=== PATIENT | female | born 1965 | race Caucasian/White ===

== ENCOUNTER 2021-01-20 11:51 | Outpatient (REF) | payer OTHER, SELFPAY ==
--- NOTE | ~2021-01-20 | MR_ITS ---
MR LUMBAR SPINE WITHOUT CONTRAST CLINICAL INFORMATION: Lumbosacral radiculitis. COMPARISON: None available. TECHNIQUE: MRI of the lumbar spine was obtained using routine sequences without contrast. FINDINGS: There is transitional anatomy. 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 There are 5 nonrib-bearing lumbar-type vertebral bodies in the last completely developed intervertebral disc is considered L5-S1. Please correlate with plain films prior to any percutaneous or surgical intervention. There is grade 1 retrolisthesis of L4 L3 on L4 and L4 on L5. Chronic endplate Schmorl's nodes at the L1, L2, and L3 levels. There is no bone marrow edema. There are no acute fractures. Conus terminates at the L1-L2 level. There are no significant extraspinal soft tissue findings. T12-L1: A shallow right paracentral disc protrusion mildly indents the right ventral thecal sac. L1-L2: Small annular disc bulge exhibiting a small dorsal annular fissure. No central canal stenosis and no foraminal stenosis. L2-L3: Small annular disc bulge and mild to moderate bilateral facet arthropathy. No central canal stenosis and no foraminal stenosis. L3-L4: Diffuse annular disc bulge with a superimposed left paracentral disc protrusion that compresses the traversing left L4 nerve root within the left subarticular zone. Mild central canal stenosis. A far left lateral disc protrusion compresses the extraforaminal left L3 nerve root as well. L4-L5: Grade 1 retrolisthesis. There is a diffuse annular disc bulge and there is a inferiorly migrating right paracentral disc extrusion that compresses the traversing right L5 nerve root within the right L5 lateral recess. Background annular disc bulge and severe bilateral facet arthropathy contribute to severe left subarticular zone stenosis with compression of the traversing left L5 nerve root as well. Mild to moderate right and mild left foraminal encroachment. L5-S1: Annular disc bulge and moderate bilateral facet arthropathy. No central canal stenosis. Mild foraminal encroachment bilaterally. Far left lateral disc osteophyte protrusion approaches without definitely resulting in mass effect on the extraforaminal left L5 nerve root. MR/MR lumbar spine wo con IMPRESSION: - There is transitional anatomy. 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 There are 5 nonrib-bearing lumbar-type vertebral bodies in the last completely developed intervertebral disc is considered L5-S1. Please correlate with plain films prior to any percutaneous or surgical intervention. - At L4-L5, an inferiorly migrating right paracentral disc extrusion compresses the traversing right L5 nerve root within the right L5 lateral recess and multifactorial degenerative changes result in severe left subarticular zone stenosis with compression of the traversing left L5 nerve root as well. - At L3-L4, a left paracentral disc protrusion compresses the traversing left L4 nerve root within the left subarticular zone and a far left lateral disc protrusion compresses the extraforaminal left L3 nerve root on image 19 of series 5. - Additional degenerative findings as discussed above.
== END 2021-01-20 11:52 | disposition home or self-care (01) ==
LOC: HO.MRI 11:51
PROVIDERS: Visit Provider Internal Medicine
DX: M54.17 Radiculopathy, lumbosacral region (principal)
CPT/HCPCS: 72148

== ENCOUNTER 2021-11-04 12:27 | Outpatient (REF) | payer OTHER, SELFPAY ==
--- NOTE | ~2021-11-04 | XR_ITS ---
EXAMINATION: XR CHEST CLINICAL INFORMATION: Acute cough COMPARISON: None TECHNIQUE: 2 views of the chest were obtained. FINDINGS: The lungs are clear. There is no airspace consolidation or effusion. The heart is normal in size. The vascularity is normal. The hilar and mediastinal contours and bony structures are unremarkable. XR/XR chest 2V IMPRESSION: Unremarkable examination.
[2021-11-04 17:58] LABS: MANUAL DIFF FLAG NO
[2021-11-04 18:08] LABS: Basophils Absolute Auto 0.1 X10*3/uL (0.0-0.2); Basophils Percent Auto 0.6 % (0-2); Eosinophils Absolute Auto 0.3 X10*3/uL (0.0-0.4); Eosinophils Percent Auto 3.8 % (0-4); Hematocrit 41.5 % (37.0-47.0); Hemoglobin 13.4 g/dl (12.0-16.0); Imm Gran Abs Auto 0.02 X10*3/uL (0.00-0.03); Imm Gran Pct Auto 0.3 % (0.0-0.4); Lymphocytes Absolute Auto 2.4 X10*3/uL (1.2-4.9); Mean Corpuscular HGB Conc 32.3 g/dl (31.0-35.0); Mean Corpuscular Hemoglobin 27.8 pg (27.0-33.0); Mean Corpuscular Volume 86.1 fL (80.0-98.0); Mean Platelet Volume 10.9 fL (9.4-12.3); Monocytes Absolute Auto 0.8 X10*3/uL (0.1-1.2); Monocytes Percent Auto 9.9 % (2-11); Neutrophils Absolute Auto 4.3 x10*3/uL (2.0-8.3); Neutrophils Percent Auto 54.4 % (45-73); Platelet Count 291 X10*3/uL (160-400); Red Blood Count 4.82 X10*6/uL (4.20-5.50); Red Cell Distribution Width 13.5 % (11.0-16.0); White Blood Count 7.8 X10*3/uL (4.8-10.8)
== END 2021-11-04 12:28 | disposition home or self-care (01) ==
LOC: HO.MANLDS 12:27
PROVIDERS: PCP Internal Medicine; Visit Provider Physician Assistant
DX: R05.1 Acute cough (principal); R00.2 Palpitations; E78.2 Mixed hyperlipidemia
CPT/HCPCS: 36415; 71046; 85025

== ENCOUNTER 2021-11-30 11:06 | Outpatient (REF) | payer OTHER, SELFPAY ==
[2021-11-30 13:33] LABS: MANUAL DIFF FLAG NO
[2021-11-30 13:36] LABS: Basophils Percent Auto 0.4 % (0-2); Eosinophils Absolute Auto 0.2 X10*3/uL (0.0-0.4); Eosinophils Percent Auto 3.2 % (0-4); Hematocrit 40.7 % (37.0-47.0); Hemoglobin 13.4 g/dl (12.0-16.0); Imm Gran Abs Auto 0.01 X10*3/uL (0.00-0.03); Imm Gran Pct Auto 0.2 % (0.0-0.4); Lymphocytes Absolute Auto 1.5 X10*3/uL (1.2-4.9); Lymphocytes Percent Auto 28.5 % (20-40); Mean Corpuscular HGB Conc 32.9 g/dl (31.0-35.0); Mean Corpuscular Hemoglobin 27.9 pg (27.0-33.0); Mean Corpuscular Volume 84.8 fL (80.0-98.0); Mean Platelet Volume 10.6 fL (9.4-12.3); Monocytes Absolute Auto 0.7 X10*3/uL (0.1-1.2); Monocytes Percent Auto 13.1 % (2-11); Neutrophils Absolute Auto 2.9 x10*3/uL (2.0-8.3); Neutrophils Percent Auto 54.6 % (45-73); Platelet Count 259 X10*3/uL (160-400); Red Cell Distribution Width 13.3 % (11.0-16.0); White Blood Count 5.3 X10*3/uL (4.8-10.8)
[2021-11-30 13:47] LABS: Alanine Aminotransferase 37 U/L (0-31); Albumin Level 4.4 g/dL (3.5-5.0); Alkaline Phosphatase 64 U/L (39-117); Anion Gap 14 (12-20); Aspartate Amino Transferase 20 U/L (5-31); Bilirubin Total 0.5 mg/dL (0.0-1.0); Blood Urea Nitrogen 21 mg/dL (9-16); Calcium 9.6 mg/dL (8.4-10.2); Carbon Dioxide 25 mmol/L (22-29); Chloride 107 mmol/L (96-108); Cholesterol 199 mg/dL; Estimated Glomerular Filt Rate > 60; Glucose Fasting 108 mg/dL (60-99); HDL Cholesterol 56 mg/dL; Iron 37 mcg/dL (30-160); LDL Cholesterol Calculated 129 mg/dl; Percent Iron Saturation 11 % (15-50); Potassium 3.7 mmol/L (3.3-5.1); Sodium 142 mmol/L (135-145); Total Iron Binding Capacity 350 mcg/dL (228-428); Total Protein 7.1 g/dL (6.5-8.0); Triglycerides 73 mg/dL; Unsaturated Iron Binding 313 ug/dL
[2021-11-30 14:07] LABS: Ferritin 83 ng/mL (10-250); Free T4 (Free Thyroxine) 0.87 ng/dL (0.71-1.85); Thyroid Stimulating Hormone 1.77 uIU/mL (0.32-4.0)
== END 2021-11-30 11:07 | disposition home or self-care (01) ==
LOC: HO.MANLDS 11:06
PROVIDERS: PCP Physician Assistant; Visit Provider Physician Assistant
DX: R00.2 Palpitations (principal); E78.2 Mixed hyperlipidemia
CPT/HCPCS: 36415; 80053; 80061; 82728; 83540; 84439; 84443; 85025

== ENCOUNTER → 2022-12-13 14:08 | Outpatient (REF) | payer OTHER, SELFPAY ==
--- NOTE | 2022-12-13 14:47 | HM_ITS ---
* Procedure length 30 days. Wear time 22.8 days. * Average ventricular rate 87/Min. Range 50 to 156/Min. * About 30% the time, rate > 100/Min. * Rare supraventricular and ventricular ectopy. * No clear patient symptoms documented. MTDD
== END ==
LOC: HO.CARD 14:08
PROVIDERS: PCP Internal Medicine; Visit Provider Physician Assistant
DX: R07.89 Other chest pain (principal)
CPT/HCPCS: 93270

== ENCOUNTER 2022-12-29 14:24 | Outpatient (REF) | payer OTHER, SELFPAY ==
--- NOTE | ~2022-12-29 | MR_ITS ---
EXAMINATION: MR KNEE WITHOUT CONTRAST, LEFT CLINICAL INFORMATION: Left knee pain and swelling following an injury. COMPARISON: None available. TECHNIQUE: MRI of the knee without contrast was performed using routine sequences on a high-field scanner. FINDINGS: MENISCI: Medial Meniscus: Attenuation of the medial extruded meniscal body with mild inner margin fraying/tearing. Minimal inner margin fraying of the posterior horn and root. Lateral Meniscus: Partially discoid lateral meniscus without associated tearing. LIGAMENTS: Cruciate: Intact Collateral: Intact EXTENSOR MECHANISM: Superior patellar enthesophytes. Intact quadriceps and patellar tendons. Normal patellofemoral alignment. ARTICULAR CARTILAGE/BONE: Patellofemoral Compartment: Full-thickness articular cartilage fissuring at the patellar median ridge. Medial patellar facet articular cartilage signal heterogeneity with areas of fissuring and underlying subchondral cystic change. Small marginal osteophytes. Medial Compartment: Full-thickness articular cartilage loss at the medial most aspect of the medial tibial plateau with underlying subchondral cystic change and marrow edema. Additional full-thickness articular cartilage loss at the posterior weightbearing medial femoral condyle measuring up to 3 cm in AP dimension with underlying subchondral cystic change and marrow edema. Marginal osteophytes. Lateral Compartment: Mild articular cartilage signal heterogeneity with small marginal osteophytes. JOINT FLUID AND BURSAE: Juxro-gd-[id number] joint effusion and small Jiang's cyst. Osteochondral loose body within the superomedial joint recess measuring up to 1.4 cm in greatest dimension. MR/MR knee LT wo con IMPRESSION: 1. Attenuation of the medial meniscal body with mild inner margin fraying/tearing. Minimal inner margin fraying of the posterior horn and root. 2. Partially discoid lateral meniscus without tearing. 3. Afibrzer-sc-iomnfq medial as well as mild patellofemoral and lateral compartment osteoarthritis. Jrhyb-dm-hkgbwcbn joint effusion and small Jiang's cyst. Osteochondral loose body within the superomedial joint recess measuring up to 1.4 cm.
== END 2022-12-29 14:25 | disposition home or self-care (01) ==
LOC: HO.MRI 14:24
PROVIDERS: PCP Internal Medicine; Visit Provider Physician Assistant
DX: S83.207A Unspecified tear of unspecified meniscus, current injury, left knee, initial encounter (principal)
CPT/HCPCS: 73721

== ENCOUNTER 2023-01-21 14:25 | Emergency (ER) | payer OTHER, SELFPAY ==
--- NOTE | ~2023-01-21 | XR_ITS ---
EXAMINATION: XR CHEST CLINICAL INFORMATION: Chest pain. COMPARISON: 11/04/2021 chest radiographs. TECHNIQUE: 2 views of the chest were obtained. FINDINGS: No significant abnormality is noted involving the heart, lungs, mediastinum, bony thorax or soft tissues. XR/XR chest 2V IMPRESSION: No acute cardiopulmonary process.
--- NOTE | 2023-01-21 14:27 | ED_ITS ---
HPI - General Adult General Chief complaint: Chest Pain Stated complaint: Chest Pain Time Seen by Provider: 01/21/23 14:30 Source: patient, RN notes reviewed and old records reviewed Mode of arrival: ambulatory History of Present Illness HPI narrative: 57-year-old female with past medical history hypertension, presenting to the ED complaining of intermittent chest pain x 2 months, worsening this morning with associated SOB, nausea, lightheadedness, and radiation to jaw & LUE. Patient admits to taking 2 nitroglycerin with some relief. Admits to recently being worked up at [facility] and [facility] for similar symptoms, had ECHO, Holter, and is scheduled for outpatient CT. Denies fever, cough, abdominal pain, vomiting/diarrhea, calf pain, history of clots Onset (ago): day(s) Related Data Allergies Allergy/AdvReac Type Severity Reaction Status Date / Time No Known Allergies Allergy Verified 01/21/23 14:40 Review of Systems Review of Systems: Constitutional: No Fever, No Chills, No Night Sweats, No Fatigue, No Malaise ENT/Mouth: No Ear Pain, No Nasal Congestion, No sore throat Eyes: No Eye Pain, No Swelling, No Redness, No Vision Changes Cardiovascular: +intermittent Chest Pain, + SOB, No Dyspnea on Exertion, No Edema, No Palpitations Respiratory: No Cough, No Sputum, No Dyspnea Gastrointestinal: + Nausea, No Vomiting, No Diarrhea, No Constipation, No Ab dominal pain Genitourinary: No Dysuria, No Urinary Frequency, No Hematuria Musculoskeletal: No joint pain, No Myalgias, No Joint Swelling Skin: No Skin Lesions, No rash Neuro: No Weakness, No Loss of Consciousness, +lightheaded, No Headache Yes all other systems are reviewed and are negative Constitutional: Constitutional: Reports as per [facility] Past Medical History Attestation statement: The following information was validated with the patient. Source: old records reviewed Social History Social History Alcohol intake: current Alcohol intake frequency: a few times a week Smoked in Last 30 Days: No Use of substances other than those prescribed or required for medical reasons: Yes Substance Use Type: Marijuana Advance Directives: No Advance Directives Information Provided: Yes Patient : No Physical Exam ED Vital Signs: Vital Signs - 24 hr 01/21/23 14:36 01/21/23 16:00 Temperature 98.8 F 98.5 F Pulse Rate 88 82 Respiratory Rate 15 16 Blood Pressure 185/98 H 162/90 H Pulse Oximetry 97 97 Oxygen Delivery Method Room Air Room Air BMI result Body Mass Index 34.3 Const General: cooperative, healthy appearing, no acute distress, alert and awake Orientation/consciousness: patient oriented x3 Limitations: no limitations HENMT Head: Yes normal to inspection and Yes atraumatic Ears: hearing grossly normal bilaterally General nose exam: Normal external nose present Face and sinus: Yes normal facial exam Eyes General: appearance normal, both eyes and all related structures EOM: EOMs intact bilaterally Neck Neck: Yes normal visual inspection and Yes no meningeal signs Resp Effort & Inspection: normal respiratory effort and no respiratory distress Auscultation: clear to auscultation bilaterally, no rales, no rhonchi and no wheezes Cardio Rate: regular rate Heart sounds: S1 normal heart sound present and S2 normal heart sound present GI Inspection: Yes normal to inspection Palpation (GI): Soft to palpation, nontender, no guarding and not rigid Skin Rashes: no rashes Wounds: no wounds Neuro General: patient oriented x3, tone normal, moves all extremities, no meningeal signs and no focal motor deficits Extrem General: Yes normal to inspection, Yes no pedal edema and Yes no calf tenderness Course Course Course Narrative: RME performed by Kassandra Wong PA-C. Patient is a 57 year old assigned female at presenting to the emergency department with chest pain. Labs, imaging, and CXR ordered. Patient placed back in the waiting room pending room availability and results. -1600--no leukocytosis. BUN chronically elevated. Labs otherwise reassuring. Initial troponin negative > will obtain 3 hour repeat XR chest 2V IMPRESSION: No acute cardiopulmonary process. -1630--ED care transfer to [facility] pending repeat troponin and dispo per results Medical Decision Making Medical Decision Making MDM Narrative: 57-year-old female with past medical history hypertension, presenting to the ED complaining of intermittent chest pain x 2 months, worsening this morning with associated SOB, nausea, lightheadedness, and radiation to jaw & LUE. On exam vital signs stable, NAD, nontoxic appearing, lungs CTA, no pedal edema/calf tenderness. Symptoms atypical for ACS or PE. Low suspicion for dissection or pneumonia. Plan: EKG, Labs, CXR, Reassess HEART Score =3 (Low risk) Please refer to course for remaining clinical decision making, interpretation of labs/imaging results, and discussions with consultants and/or family members. Differential Diagnosis Differential Diagnoses: The differential diagnosis associated with the prese ntation includes As above Admission/Observation Consideration of admission/observation: Escalation of care including admission/ observation considered Lab Data MDM Lab Attestation statement: I reviewed the patient's lab results. 01/21/23 14:55 01/21/23 14:55 Labs: Lab Results 01/21/23 01/21/23 01/21/23 Range/Units 14:55 14:55 14:55 WBC 8.1 (4.8-10.8) X10*3/uL RBC 4.52 (4.20-5.50) X10*6/uL Hgb 12.8 (12.0-16.0) g/dl Hct 38.8 (37.0-47.0) % MCV 85.8 (80.0-98.0) fL MCH 28.3 (27.0-33.0) pg MCHC 33.0 (31.0-35.0) g/dl RDW 13.2 (11.0-16.0) % Plt Count 275 (160-400) X10*3/uL MPV 9.6 (9.4-12.3) fL Immature Gran % (Auto) 1.0 H (0.0-0.4) % Neut % (Auto) 70.3 (45-73) % Lymph % (Auto) 19.4 L (20-40) % Kent % (Auto) 8.0 (2-11) % Eos % (Auto) 0.7 (0-4) % Baso % (Auto) 0.6 (0-2) % Lymph # (Auto) 1.6 (1.2-4.9) X10*3/uL Kent # (Auto) 0.7 (0.1-1.2) X10*3/uL Eos # (Auto) 0.1 (0.0-0.4) X10*3/uL Baso # (Auto) 0.1 (0.0-0.2) X10*3/uL Abs Immat Gran (auto) 0.08 H (0.00-0.03) X10*3/uL Absolute Neuts (auto) 5.7 (2.0-8.3) x10*3/uL Absolute Nucleated RBC 0.000 (0.0-0.012) X10*3/uL Nucleated RBC % (auto) 0.0 (0.0-0.2) /100WBC PT (10.0-13.1) SEC INR (0.9-1.1) APTT (26.0-36.4) SEC Sodium 142 (135-145) mmol/L Potassium 4.1 (3.3-5.1) mmol/L Chloride 107 (96-108) mmol/L Carbon Dioxide 26 (22-29) mmol/L Anion Gap 13 (12-20) BUN 23 H (9-16) mg/dL Creatinine 0.81 (0.5-1.4) mg/dL Estim Creat Clear Calc 86.5 Estimated GFR > 60 Random Glucose 108 (60-115) mg/dL Calcium 9.8 (8.4-10.2) mg/dL Magnesium 2.0 (1.6-2.6) mg/dL Total Bilirubin 0.4 (0.0-1.0) mg/dL AST 17 (5-31) U/L ALT 25 (0-31) U/L Alkaline Phosphatase 70 (39-117) U/L Troponin I High Sens < 2.7 (<3.5-17.0) ng/L B-Natriuretic Peptide (<100) pg/mL Total Protein 7.6 (6.5-8.0) g/dL Albumin 4.9 (3.5-5.0) g/dL Urine Color Urine Appearance Urine pH (5.0-9.0) Ur Specific Carefree (1.005-1.025) Urine Protein (Neg-Trace) mg/dL Urine Glucose (UA) (Negative) mg/dL Urine Ketones (Negative) mg/dL Urine Blood (Negative) Urine Nitrite (Negative) Ur Leukocyte Esterase (Negative) COVID-19 ([facility]) (Negative) COVID-19 Clin Com 01/21/23 01/21/23 01/21/23 Range/Units 14:55 14:55 14:55 WBC (4.8-10.8) X10*3/uL RBC (4.20-5.50) X10*6/uL Hgb (12.0-16.0) g/dl Hct (37.0-47.0) % MCV (80.0-98.0) fL MCH (27.0-33.0) pg MCHC (31.0-35.0) g/dl RDW (11.0-16.0) % Plt Count (160-400) X10*3/uL MPV (9.4-12.3) fL Immature Gran % (Auto) (0.0-0.4) % Neut % (Auto) (45-73) % Lymph % (Auto) (20-40) % Kent % (Auto) (2-11) % Eos % (Auto) (0-4) % Baso % (Auto) (0-2) % Lymph # (Auto) (1.2-4.9) X10*3/uL Kent # (Auto) (0.1-1.2) X10*3/uL Eos # (Auto) (0.0-0.4) X10*3/uL Baso # (Auto) (0.0-0.2) X10*3/uL Abs Immat Gran (auto) (0.00-0.03) X10*3/uL Absolute Neuts (auto) (2.0-8.3) x10*3/uL Absolute Nucleated RBC (0.0-0.012) X10*3/uL Nucleated RBC % (auto) (0.0-0.2) /100WBC PT 10.8 (10.0-13.1) SEC INR 0.9 (0.9-1.1) APTT 34.5 (26.0-36.4) SEC Sodium (135-145) mmol/L Potassium (3.3-5.1) mmol/L Chloride (96-108) mmol/L Carbon Dioxide (22-29) mmol/L Anion Gap (12-20) BUN (9-16) mg/dL Creatinine (0.5-1.4) mg/dL Estim Creat Clear Calc Estimated GFR Random Glucose (60-115) mg/dL Calcium (8.4-10.2) mg/dL Magnesium (1.6-2.6) mg/dL Total Bilirubin (0.0-1.0) mg/dL AST (5-31) U/L ALT (0-31) U/L Alkaline Phosphatase (39-117) U/L Troponin I High Sens (<3.5-17.0) ng/L B-Natriuretic Peptide 23 (<100) pg/mL Total Protein (6.5-8.0) g/dL Albumin (3.5-5.0) g/dL Urine Color Urine Appearance Urine pH (5.0-9.0) Ur Specific Carefree (1.005-1.025) Urine Protein (Neg-Trace) mg/dL Urine Glucose (UA) (Negative) mg/dL Urine Ketones (Negative) mg/dL Urine Blood (Negative) Urine Nitrite (Negative) Ur Leukocyte Esterase (Negative) COVID-19 ([facility]WIN) Negative (Negative) COVID-19 Clin Com See Note 01/21/23 Range/Units 15:19 WBC (4.8-10.8) X10*3/uL RBC (4.20-5.50) X10*6/uL Hgb (12.0-16.0) g/dl Hct (37.0-47.0) % MCV (80.0-98.0) fL MCH (27.0-33.0) pg MCHC (31.0-35.0) g/dl RDW (11.0-16.0) % Plt Count (160-400) X10*3/uL MPV (9.4-12.3) fL Immature Gran % (Auto) (0.0-0.4) % Neut % (Auto) (45-73) % Lymph % (Auto) (20-40) % Kent % (Auto) (2-11) % Eos % (Auto) (0-4) % Baso % (Auto) (0-2) % Lymph # (Auto) (1.2-4.9) X10*3/uL Kent # (Auto) (0.1-1.2) X10*3/uL Eos # (Auto) (0.0-0.4) X10*3/uL Baso # (Auto) (0.0-0.2) X10*3/uL Abs Immat Gran (auto) (0.00-0.03) X10*3/uL Absolute Neuts (auto) (2.0-8.3) x10*3/uL Absolute Nucleated RBC (0.0-0.012) X10*3/uL Nucleated RBC % (auto) (0.0-0.2) /100WBC PT (10.0-13.1) SEC INR (0.9-1.1) APTT (26.0-36.4) SEC Sodium (135-145) mmol/L Potassium (3.3-5.1) mmol/L Chloride (96-108) mmol/L Carbon Dioxide (22-29) mmol/L Anion Gap (12-20) BUN (9-16) mg/dL Creatinine (0.5-1.4) mg/dL Estim Creat Clear Calc Estimated GFR Random Glucose (60-115) mg/dL Calcium (8.4-10.2) mg/dL Magnesium (1.6-2.6) mg/dL Total Bilirubin (0.0-1.0) mg/dL AST (5-31) U/L ALT (0-31) U/L Alkaline Phosphatase (39-117) U/L Troponin I High Sens (<3.5-17.0) ng/L B-Natriuretic Peptide (<100) pg/mL Total Protein (6.5-8.0) g/dL Albumin (3.5-5.0) g/dL Urine Color Yellow Urine Appearance Clear Urine pH 6.5 (5.0-9.0) Ur Specific Carefree 1.015 (1.005-1.025) Urine Protein Negative (Neg-Trace) mg/dL Urine Glucose (UA) Negative (Negative) mg/dL Urine Ketones Negative (Negative) mg/dL Urine Blood Negative (Negative) Urine Nitrite Negative (Negative) Ur Leukocyte Esterase Negative (Negative) COVID-19 ([facility]WIN) (Negative) COVID-19 Clin Com Radiology Impression Discussion of test interpretation with radiology: I have reviewed the radiologist's reading. External Record Review External record reviewed: Inpatient record, Office record, Outpatient record, Prior outpatient labs, Prior outpatient radiology, Primary care record and Outside ED record Tests considered The following testing was considered but not selected: As above Discharge Plan Discharge Clinical Impression: Atypical chest pain Patient Disposition: Home, Self-Care Instructions: Noncardiac Chest Pain (ED) Referrals: [facility] – [place] Cardiovascular Services [Provider Group] Bigda,Wallace, MD [Primary Care Provider] -
--- NOTE | 2023-01-21 14:30 | ECG_ITS ---
Test Reason : CP Blood Pressure : / mmHG Vent. Rate : 089 BPM Atrial Rate : 089 BPM P-R Int : 128 ms QRS Dur : 090 ms QT Int : 346 ms P-R-T Axes : 059 042 051 degrees QTc Int : 420 ms Normal sinus rhythm Normal ECG No previous ECGs available Referred By: Kassandra Wong Electronically Signed By:Shai Gracia
[2023-01-21 14:36] VITALS: BP 185/98; PULSE 88; RESP 15; TEMP 37.1; O2SAT 97; BMI 34.3
[2023-01-21 15:00] LABS: MANUAL DIFF FLAG NO
[2023-01-21 15:06] LABS: INTERNATIONAL NORM RATIO 0.9 (0.9-1.1); Prothrombin Time 10.8 SEC (10.0-13.1)
[2023-01-21 15:08] LABS: Basophils Absolute Auto 0.1 X10*3/uL (0.0-0.2); Basophils Percent Auto 0.6 % (0-2); Eosinophils Absolute Auto 0.1 X10*3/uL (0.0-0.4); Eosinophils Percent Auto 0.7 % (0-4); Hematocrit 38.8 % (37.0-47.0); Hemoglobin 12.8 g/dl (12.0-16.0); Imm Gran Abs Auto 0.08 X10*3/uL (0.00-0.03); Lymphocytes Absolute Auto 1.6 X10*3/uL (1.2-4.9); Lymphocytes Percent Auto 19.4 % (20-40); Mean Corpuscular Hemoglobin 28.3 pg (27.0-33.0); Mean Corpuscular Volume 85.8 fL (80.0-98.0); Mean Platelet Volume 9.6 fL (9.4-12.3); Monocytes Absolute Auto 0.7 X10*3/uL (0.1-1.2); Neutrophils Absolute Auto 5.7 x10*3/uL (2.0-8.3); Neutrophils Percent Auto 70.3 % (45-73); Platelet Count 275 X10*3/uL (160-400); Red Blood Count 4.52 X10*6/uL (4.20-5.50); Red Cell Distribution Width 13.2 % (11.0-16.0); White Blood Count 8.1 X10*3/uL (4.8-10.8)
[2023-01-21 15:09] LABS: Partial Thromboplastin Time 34.5 SEC (26.0-36.4)
[2023-01-21 15:19] LABS: Alanine Aminotransferase 25 U/L (0-31); Albumin Level 4.9 g/dL (3.5-5.0); Alkaline Phosphatase 70 U/L (39-117); Anion Gap 13 (12-20); Aspartate Amino Transferase 17 U/L (5-31); Bilirubin Total 0.4 mg/dL (0.0-1.0); Blood Urea Nitrogen 23 mg/dL (9-16); Calcium 9.8 mg/dL (8.4-10.2); Carbon Dioxide 26 mmol/L (22-29); Chloride 107 mmol/L (96-108); Creatinine Clr Calc Pharmacy 86.5; Estimated Glomerular Filt Rate > 60; Glucose Random 108 mg/dL (60-115); Potassium 4.1 mmol/L (3.3-5.1); Sodium 142 mmol/L (135-145); Total Protein 7.6 g/dL (6.5-8.0)
[2023-01-21 15:23] LABS: B Type Natriuretic Peptide 23 pg/mL (<100)
[2023-01-21 15:26] LABS: Troponin-I High Sensitivity < 2.7 ng/L (<3.5-17.0)
[2023-01-21 15:30] LABS: Appearance Urine Clear; Color Urine Yellow; Glucose Urine UA Negative (Negative); Leukocyte Esterase Urine Negative (Negative); Nitrite Urine Negative (Negative); PH 6.5 (5.0-9.0); Specific Gravity - Urine 1.015 (1.005-1.025); Urine Blood Negative (Negative); Urine Ketones Negative (Negative); Urine Protein Negative (Neg-Trace)
[2023-01-21 16:00] VITALS: BP 162/90; PULSE 82; RESP 16; TEMP 36.9; O2SAT 97
[2023-01-21 16:00] LABS: COVID-19 Test Negative (Negative); IDNOW Serial# 08D9AD1C
--- NOTE | 2023-01-21 16:28 | MHC.EDTECH ---
THIS PCT ASSUMED CARE OF PATIENT AT 1500 ,VITALS SIGN TAKEN ,PATIENT HAD A GLASS OF WATER TO DRINK ,PATIENT PARTNER AT BEDSIDE .
[2023-01-21 17:44] VITALS: BP 183/90; PULSE 79; RESP 15; TEMP 37; O2SAT 96
--- NOTE | 2023-01-21 17:53 | MHC.EDTECH ---
PATIENT REPEATED TROP DRAWN AND SENT TO LAB ,VITALS SIGN TAKEN [facility] IS AWARE OF PATIENT HIGH BP .
[2023-01-21 18:19] LABS: Troponin-I High Sensitivity 2.7 ng/L (<3.5-17.0)
[2023-01-26 01:04] LABS: Lyme Abs Screen <0.90 index
== END 2023-01-21 19:06 | disposition home or self-care (01) ==
PROVIDERS: Physician Assistant; Physician Assistant Medical; Emergency Provider Emergency Medicine Emergency Medical Services; PCP Internal Medicine
DX: R07.89 Other chest pain (principal); R06.02 Shortness of breath; Z20.822 Contact with and (suspected) exposure to COVID-19; Z20.828 Contact with and (suspected) exposure to other viral communicable diseases
CPT/HCPCS: 36415; 71046; 80053; 81003; 83735; 83880; 84484; 85025; 85610; 85730; 86617; 86618; 87635; 93005; 99284; 99285

== ENCOUNTER 2023-03-09 09:23 | Outpatient (REF) | payer OTHER, SELFPAY ==
--- NOTE | ~2023-03-09 | US_ITS ---
EXAMINATION: US ABDOMEN COMPLETE CLINICAL INFORMATION: Abdominal pain. COMPARISON: None available. TECHNIQUE: Real-time imaging of the abdominal viscera. Limited visualization. FINDINGS: PANCREAS: Limited visualization. ABDOMINAL AORTA: Nonaneurysmal INFERIOR VENA CAVA: Visualized portions are normal. LIVER: Diffuse increase in echogenicity of the liver is characteristic of primary hepatocellular disease, possibly due to hepatic steatosis and further limits visualization. GALLBLADDER: No gallstones. Borderline gallbladder wall thickening of 0.3 cm. COMMON BILE DUCT: Normal in caliber measuring 0.7 cm in diameter. RIGHT KIDNEY: No hydronephrosis. No renal calculi. Renal cortical thickness is normal. Limited visualization. The kidney measures 11.0 cm in maximum dimension. LEFT KIDNEY: No hydronephrosis. No renal calculi. Renal cortical thickness is normal. Limited visualization. The kidney measures 11.5 cm in maximum dimension. SPLEEN: Normal. The spleen measures 10.5 cm in maximum dimension. FREE FLUID: None. US/US abdomen complete IMPRESSION: 1. Diffuse increase in echogenicity of the liver is characteristic of primary hepatocellular disease, possibly due to hepatic steatosis and further limits visualization. 2. Limited visualization. CT scan could be considered for better visualization.
--- NOTE | ~2023-03-09 | US_ITS ---
EXAMINATION: US EXTRACRANIAL CAROTID DUPLEX, BILATERAL CLINICAL INFORMATION: Dizziness and giddiness. COMPARISON: None available. TECHNIQUE: Real-time ultrasound and Doppler techniques (integrating B-mode 2-D vascular images, Doppler spectral analysis and color-flow Doppler imaging) were utilized to interrogate the extracranial carotid arteries, the vertebral arteries and proximal subclavian arteries bilaterally. The degree of stenosis is determined by criteria similar to NASCET. FINDINGS: RIGHT SIDE: 1. There is no atherosclerotic plaque seen in the bifurcation/proximal ICA region. 2. The common carotid artery PSV proximally is 85 cm/s and distally 66 cm/s. 3. The proximal internal carotid artery velocities are 70 cm/s systolic and 13 cm/s diastolic. 4. The proximal external carotid artery PSV is 70 cm/s. 5. The vertebral artery was not seen. 6. The subclavian artery waveforms are antegrade. LEFT SIDE: 1. There is no atherosclerotic plaque seen in the bifurcation/proximal ICA region. 2. The common carotid artery PSV proximally is 78 cm/s and distally 75 cm/s. 3. The proximal internal carotid artery velocities are 66 cm/s systolic and 27 cm/s diastolic. 4. The proximal external carotid artery PSV is 81 cm/s. 5. The vertebral artery shows antegrade flow. 6. The subclavian artery waveforms are normal. US/US carotid duplex BI IMPRESSION: 1. RIGHT: Normal right internal carotid artery without atherosclerotic plaque or hemodynamically significant stenosis. 2. LEFT: Normal left internal carotid artery without atherosclerotic plaque or hemodynamically significant stenosis.
== END 2023-03-09 09:24 | disposition home or self-care (01) ==
LOC: HO.US 09:23
PROVIDERS: PCP Internal Medicine; Visit Provider Physician Assistant
DX: R42 Dizziness and giddiness (principal); R10.13 Epigastric pain
CPT/HCPCS: 76700; 93880

== ENCOUNTER → 2023-03-29 10:30 | Outpatient (BNV) | payer OTHER, SELFPAY | PROVIDERS: Visit Provider Internal Medicine | DX: R05.9 Cough, unspecified (principal) | CPT/HCPCS: 94060; 94727; 94729 ==

== ENCOUNTER 2023-03-29 10:31 | Outpatient (REF) | payer OTHER, SELFPAY ==
--- NOTE | 2023-03-29 | PFT_ITS ---
FINDINGS: Forced vital capacity 102%. FEV1 105%, FEV1/FVC ratio is 80. [id number]% 107%, MVV 91%. POSTBRONCHODILATOR THERAPY: There is no significant change. Total lung capacity 101%. Residual volume 84%. Diffusion capacity 92%. CLINICAL IMPRESSION: Normal pulmonary function tests. No evidence of obstructive or restrictive pulmonary disorder. MD CAREN Leon/YUNIORL / [phone]
== END 2023-03-29 10:32 | disposition home or self-care (01) ==
LOC: HO.RESP 10:31
PROVIDERS: Visit Provider Physician Assistant
DX: R05.1 Acute cough (principal)
CPT/HCPCS: 94010; 94727; 94729

== ENCOUNTER 2023-04-22 10:43 | Outpatient (REF) | payer OTHER, SELFPAY ==
[2023-04-22 13:21] LABS: MANUAL DIFF FLAG NO
[2023-04-22 13:30] LABS: Basophils Absolute Auto 0.1 X10*3/uL (0.0-0.2); Basophils Percent Auto 0.8 % (0-2); Eosinophils Absolute Auto 0.2 X10*3/uL (0.0-0.4); Eosinophils Percent Auto 2.6 % (0-4); Hematocrit 42.2 % (37.0-47.0); Hemoglobin 13.7 g/dl (12.0-16.0); Imm Gran Abs Auto 0.02 X10*3/uL (0.00-0.03); Imm Gran Pct Auto 0.3 % (0.0-0.4); Lymphocytes Absolute Auto 1.8 X10*3/uL (1.2-4.9); Mean Corpuscular HGB Conc 32.5 g/dl (31.0-35.0); Mean Corpuscular Hemoglobin 28.3 pg (27.0-33.0); Mean Corpuscular Volume 87.2 fL (80.0-98.0); Mean Platelet Volume 10.2 fL (9.4-12.3); Monocytes Absolute Auto 0.5 X10*3/uL (0.1-1.2); Monocytes Percent Auto 8.2 % (2-11); Neutrophils Absolute Auto 3.7 x10*3/uL (2.0-8.3); Neutrophils Percent Auto 59.1 % (45-73); Platelet Count 300 X10*3/uL (160-400); Red Blood Count 4.84 X10*6/uL (4.20-5.50); Red Cell Distribution Width 13.2 % (11.0-16.0); White Blood Count 6.2 X10*3/uL (4.8-10.8)
[2023-04-22 13:57] LABS: Alanine Aminotransferase 28 U/L (0-31); Albumin Level 4.7 g/dL (3.5-5.0); Alkaline Phosphatase 61 U/L (39-117); Anion Gap 14 (12-20); Aspartate Amino Transferase 18 U/L (5-31); Bilirubin Total 0.5 mg/dL (0.0-1.0); Blood Urea Nitrogen 14 mg/dL (9-16); C Reactive Protein 1.03 mg/dL (< or = 0.50); Calcium 10.7 mg/dL (8.4-10.2); Carbon Dioxide 27 mmol/L (22-29); Chloride 106 mmol/L (96-108); Estimated Glomerular Filt Rate > 60; Glucose Random 104 mg/dL (60-115); Iron 80 mcg/dL (30-160); Percent Iron Saturation 23 % (15-50); Potassium 3.7 mmol/L (3.3-5.1); Sodium 143 mmol/L (135-145); Total Iron Binding Capacity 347 mcg/dL (228-428); Total Protein 7.9 g/dL (6.5-8.0); Unsaturated Iron Binding 267 ug/dL
[2023-04-22 14:02] LABS: Ferritin 69 ng/mL (10-250); Free T4 (Free Thyroxine) 0.82 ng/dL (0.71-1.85); Thyroid Stimulating Hormone 1.78 uIU/mL (0.32-4.0)
[2023-04-22 14:18] LABS: Folate 13.3 ng/mL (> or = 4.0); Vitamin B12 608 pg/mL (200-900)
[2023-04-23 08:53] LABS: Thyroglobulin Antibodies <1 IU/mL (< or = 1); Thyroid Peroxidase Antibodies 1 IU/mL (<9)
[2023-04-25 10:39] LABS: Immunoglobulin A 201 mg/dL (47-310)
[2023-04-26 09:24] LABS: Transglutaminase IgA <1.0 U/mL
== END 2023-04-22 10:44 | disposition home or self-care (01) ==
LOC: HO.MANLDS 10:43
PROVIDERS: Nurse Practitioner; Visit Provider Physician Assistant
DX: R10.13 Epigastric pain (principal); R14.0 Abdominal distension (gaseous); R11.0 Nausea; R07.89 Other chest pain; K21.9 Gastro-esophageal reflux disease without esophagitis; R00.2 Palpitations
CPT/HCPCS: 36415; 80053; 82607; 82728; 82746; 82784; 83540; 83735; 84439; 84443; 85025; 86140; 86364; 86376; 86800

== ENCOUNTER 2023-05-06 15:01 | Outpatient (REF) | payer OTHER, SELFPAY ==
[2023-05-06 18:55] LABS: Iron 55 mcg/dL (30-160); Magnesium 1.9 mg/dL (1.6-2.6); Percent Iron Saturation 18 % (15-50); Total Iron Binding Capacity 313 mcg/dL (228-428); Unsaturated Iron Binding 258 ug/dL
[2023-05-06 19:11] LABS: Ferritin 63 ng/mL (10-250); Free T4 (Free Thyroxine) 0.89 ng/dL (0.71-1.85); Thyroid Stimulating Hormone 1.41 uIU/mL (0.32-4.0)
[2023-05-06 19:23] LABS: Folate 14.5 ng/mL (> or = 4.0); Vitamin B12 676 pg/mL (200-900)
[2023-05-11 02:14] LABS: Thyroglobulin Antibodies <1 IU/mL (< or = 1); Thyroid Peroxidase Antibodies 1 IU/mL (<9)
== END 2023-05-06 15:02 | disposition home or self-care (01) ==
LOC: HO.MANLDS 15:01
PROVIDERS: Visit Provider Physician Assistant
DX: R00.2 Palpitations (principal)
CPT/HCPCS: 36415; 82607; 82728; 82746; 83540; 83735; 84439; 84443; 86376; 86800

== ENCOUNTER 2023-08-23 13:27 | Outpatient (REF) | payer OTHER, SELFPAY ==
--- NOTE | ~2023-08-23 | US_ITS ---
EXAMINATION: MM DIAGNOSTIC DIGITAL BREAST TOMOSYNTHESIS, BILATERAL US BREAST LIMITED, RIGHT MAMMOGRAPHY: CLINICAL INFORMATION: Patient complaining of pain outer right breast. No definite palpable concern is associated or persists. Due for screening. 58-year-old female. History of breast reduction surgery. COMPARISON: Mammography: 04/24/2020, 12/19/2018, 12/07/2016. TECHNIQUE: Digital breast tomosynthesis is performed in both the craniocaudal and mediolateral oblique views along with computer-aided detection (CAD). Synthesized 2D images are generated from the tomosynthesis. FINDINGS: There are scattered areas of fibroglandular density (ACR BI-RADS breast composition Category b). There are stable foci of postoperative scarring in the right breast centrally and laterally bilaterally. These are unchanged. There are no suspicious masses, suspicious grouped calcifications, or areas of architectural distortion in either breast. The parenchymal pattern is stable from prior exams. Lateral right breast shows no changes from prior. ULTRASOUND: CLINICAL INFORMATION: Right breast pain laterally. COMPARISON: None TECHNIQUE: Targeted sonographic evaluation was performed using a high frequency linear transducer. Selected archived documentation. FINDINGS: RIGHT BREAST: There is a mixture of fatty and fibroglandular tissue. No suspicious mass is seen. There is no pathologic acoustic shadowing. There is no cystic abnormality. There is no ultrasonographic correlate to the region of breast pain laterally. US/US breast RT limited mamm only IMPRESSION: There are no findings suspicious for malignancy in either breast. No imaging findings explaining right breast pain laterally. Recommend clinical management. Otherwise, recommend the patient return to yearly screening. OVERALL ASSESSMENT: Mammography: BI-RADS 1 - Negative Ultrasound: BI-RADS 1 - Negative RECOMMENDATION: 1 year F/U This patient's information was entered into a reminder system with a target due date for their next mammogram.
== END 2023-08-23 13:28 | disposition home or self-care (01) ==
LOC: HO.MAMMO 13:27
PROVIDERS: PCP Internal Medicine; Visit Provider Physician Assistant
DX: N64.4 Mastodynia (principal)
CPT/HCPCS: 76642; 77062; 77066

== ENCOUNTER → 2023-08-23 13:30 | Outpatient (BNV) | payer OTHER, SELFPAY | PROVIDERS: PCP Internal Medicine; Visit Provider Radiology Diagnostic Radiology | DX: N64.4 Mastodynia (principal) | CPT/HCPCS: 76642; 77062; 77066 ==

== ENCOUNTER 2023-11-17 14:44 | Outpatient (REF) | payer OTHER, SELFPAY ==
[2023-11-19 06:36] LABS: CT PCR NOT DETECTED (Not Detect.); NG PCR NOT DETECTED (Not Detect.)
[2023-11-19 15:15] LABS: BV Int Neg Control Negative (Negative); BV Int Pos Control Positive (Positive)
[2023-11-26 09:18] LABS: HPV mRNA E6/E7 rflx Not Detected (Not Detected)
== END 2023-11-17 14:45 | disposition home or self-care (01) ==
LOC: HO.LNP 14:44
PROVIDERS: Visit Provider Advanced Practice Midwife
DX: Z01.419 Encounter for gynecological examination (general) (routine) without abnormal findings (principal); Z11.51 Encounter for screening for human papillomavirus (HPV); R10.2 Pelvic and perineal pain
CPT/HCPCS: 0353U; 87480; 87510; 87624; 87660; 88142

== ENCOUNTER 2023-11-17 14:44 | Outpatient (AMB) | payer OTHER, SELFPAY ==
[2023-11-17 14:55] VITALS: BP 146/78; BMI 33.9
--- NOTE | 2023-11-17 14:55 | MHC.OFFVIS ---
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 She is doing well with concerns: left pelvic cramping for one month. No changes in bowel or bladder. Attempting to eat a healthy diet with calcium and vitamin D. No regular exercise. Currently not sexually active in over 2yrs. or longer. Denies any vaginal dryness or irritation. STI testing offered; she accepts. Last pap smear; before Covid-she reports all was negative. Last mammogram; 08/2023 Colonoscopy is UTD. Denies any family history of breast, ovarian or colon cancer. [facility] Medical History Acid reflux High blood pressure Surgical History History of bunionectomy Hx of tonsillectomy Hx of bilateral breast reduction surgery Family History Maternal Grandfather Bladder cancer Mother Bladder cancer Maternal Uncle Bladder cancer Maternal Uncle Bladder cancer Social History Alcohol intake: current Alcohol intake frequency: a few times a week Use of substances other than those prescribed or required for medical reasons: No Patient : No Female Reproductive History Menstrual Age of Menarche: 11 control method: none Total pregnancies: 4 Ab induced: 4 Date of Mammogram: 08/23/23 Review of Systems Const All systems reviewed & are unremarkable except as noted in HPI and below Reports as per HPI Eyes Reports no additional complaints ENT Reports no additional complaints Card Reports no additional complaints Resp Reports no additional complaints GI Reports as per HPI and Reports no additional complaints Reports as per HPI Musc Reports no additional complaints Skin/Breast Reports as per HPI Neuro Reports no additional complaints Psych Reports no additional complaints Endo Reports no additional complaints Timmy/Lymph Reports no additional complaints Aller/Immun Reports no additional complaints Physical Exam Vital Signs: Last Vital Signs BP 146/78 H 11/17/23 14:55 BMI result Body Mass Index 33.9 Const General: cooperative, healthy appearing, no acute distress, well developed and alert Orientation/consciousness: patient oriented x3 HEENT Head: Yes normal to inspection Eyes General: appearance normal, both eyes and all related structures Neck Neck: Yes normal visual inspection Thyroid: Thyroid normal Chest Other: Breast reduction scarring Chest palpation & inspection: normal inspection of the chest and other (no puckering, dimpling, peau de orange, retraction, discharge, masses) Breast/axilla inspection: normal inspection of the breasts Breast/axilla palpation: normal palpation of the breasts Resp Effort & Inspection: normal respiratory effort GI Other: slightly tender anterior surface of left recti muscle Inspection: Yes normal to inspection and Yes obesity Palpation (GI): Soft to palpation Rectal Exam - Female: deferred General: Yes bladder normal to palpation External Female Exam: normal external appearance and normal appearance of the urethra Speculum Exam - Vagina: normal appearance of the vagina, normal palpation, normal vaginal discharge and vagina atrophic Speculum Exam - Cervix: normal appearance of the cervix, normal palpation and Other cervical findings present (bled slightly w/pap) Bimanual exam- vagina & uterus: normal bimanual exam, normal palpation, uterine size normal, bladder normal to palpation, normal palpation and non-tender Bimanual Exam- Adnexa, other: no masses Skin General skin exam: no rashes or lesions noted Rashes: no rashes Neuro General: patient oriented x3 Cognition (Neuro): normal cognition Extrem General: Yes normal to inspection Psych Attitude: cooperative Thought process: Normal thought process present Assessment & Plan Assessment & Plan (1) Encounter for well woman exam with routine gynecological exam: Code(s): Z01.419 - Encounter for gynecological examination (general) (routine) without abnormal findings (2) Pelvic pain: Code(s): R10.2 - Pelvic and perineal pain Plan Discussed: Current recommendations for pap smears per ASCCP guidelines. Breast awareness, periodic self breast exams and yearly mammogram. Maintain a healthy lifestyle, well balanced diet including Calcium 1,200 mg and Vitamin D 600 IU daily, and routine exercise. Work up: Pelvic ultrasound, culture. Discussed various causes of abdominal plain including musculoskeletal. Follow-up in person for test results. Contact the office with any postmenopausal bleeding. Patient verbalizes understanding and agrees to the plan of care. She was given opportunity to ask questions and all questions were answered to the best of my ability. RTO in 1 year for annual international travel consultant exam. This note is constructed using voice recognition software. While every effort has been made to ensure accuracy, data warehousing manager errors may have been included. Orders: Orders US pelvic and transvaginal Today R10.2 - Pelvic and perineal pain Coding Level of Care Code New Pt Prev Care 40-64y(23648) Diagnoses Encounter for well woman exam with routine gynecological exam Z01.419 Pelvic pain R10.2
== END 2023-11-17 15:37 | disposition home or self-care (01) ==
PROVIDERS: PCP Internal Medicine; Visit Provider Advanced Practice Midwife
DX: Z01.419 Encounter for gynecological examination (general) (routine) without abnormal findings (principal); R10.2 Pelvic and perineal pain
CPT/HCPCS: 99386

== ENCOUNTER 2023-11-22 14:50 | Outpatient (REF) | payer OTHER, SELFPAY ==
--- NOTE | ~2023-11-22 | US_ITS ---
EXAM: Pelvic Ultrasound CLINICAL INDICATION: Pelvic pain COMPARISON: None available TECHNIQUE: The pelvis was evaluated using transabdominal and transvaginal imaging. FINDINGS: The uterus measures 7.4 x 3.3 x 5.3 cm in longitudinal by AP by transverse dimension. The endometrial stripe is not thickened and measures 0.4 cm. There is trace fluid within the endometrial cavity. There is an approximately 3 cm anterior fundal fibroid. Also noted is a cluster of coarse calcifications within the anterior right fundus. The cervix demonstrates nabothian cysts in addition to coarse calcifications. Fluid/debris is noted within the cervix. Neither ovary was clearly visualized. There is no free fluid in the pelvis. US/US pelvic and transvaginal IMPRESSION: -Normal thickness endometrial stripe lobe there is a trace amount of fluid within the endometrium. There is also fluid versus debris noted within the cervix. Direct inspection may be warranted. -3 cm uterine fibroid. -Coarse calcifications within the right fundus, nonspecific.
== END 2023-11-22 14:51 | disposition home or self-care (01) ==
LOC: HO.US 14:50
PROVIDERS: PCP Internal Medicine; Visit Provider Advanced Practice Midwife
DX: R10.2 Pelvic and perineal pain (principal)
CPT/HCPCS: 76830; 76856

== ENCOUNTER 2023-12-06 08:32 | Outpatient (AMB) | payer OTHER, SELFPAY ==
[2023-12-06 08:35] VITALS: BP 138/80; BMI 33.9
--- NOTE | 2023-12-06 08:35 | MHC.OFFVIS ---
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 Previous visit she reported left pelvic pain, today with review of her symptoms appears that it left to the midline and not radiating over to the hip or in the hip region. She reports it is still ongoing not worsening. She admits to having an up-to-date colonoscopy. She denies any symptoms of postmenopausal bleeding. [facility] Medical History (Updated 12/06/23 @ 08:54 by Margaret Corado CNM) Fibroid Acid reflux High blood pressure Surgical History History of bunionectomy Hx of tonsillectomy Hx of bilateral breast reduction surgery Family History Maternal Grandfather Bladder cancer Mother Bladder cancer Maternal Uncle Bladder cancer Maternal Uncle Bladder cancer Social History Alcohol intake: current Alcohol intake frequency: a few times a week Female Reproductive History Menstrual Age of Menarche: 11 Review of Systems Const All systems reviewed & are unremarkable except as noted in HPI and below Endo Reports no additional complaints Physical Exam Vital Signs: Last Vital Signs BP 138/80 12/06/23 08:35 BMI result Body Mass Index 33.9 Const General: cooperative, healthy appearing and no acute distress Psych Appearance: well kempt Attitude: cooperative Thought process: Normal thought process present Results Reviewed Results Reviewed: [address] [address] Ultrasound Report Signed Patient: Rhea Caballero MR#: [id number] : 1965 Acct:[id number] Age/Sex: 58 / F ADM Date: 11/22/23 Loc: HO.US Attending Dr: Margaret Corado CNM Ordering Physician: Margaret Corado CNM Date of Service: 11/22/23 Procedure(s): US pelvic and transvaginal Accession Number(s): [id number] cc: Wallace Keyes MD; Margaret Corado CNM~ EXAM: Pelvic Ultrasound CLINICAL INDICATION: Pelvic pain COMPARISON: None available TECHNIQUE: The pelvis was evaluated using transabdominal and transvaginal imaging. FINDINGS: The uterus measures 7.4 x 3.3 x 5.3 cm in longitudinal by AP by transverse dimension. The endometrial stripe is not thickened and measures 0.4 cm. There is trace fluid within the endometrial cavity. There is an approximately 3 cm anterior fundal fibroid. Also noted is a cluster of coarse calcifications within the anterior right fundus. The cervix demonstrates nabothian cysts in addition to coarse calcifications. Fluid/debris is noted within the cervix. Neither ovary was clearly visualized. There is no free fluid in the pelvis. US/US pelvic and transvaginal IMPRESSION: -Normal thickness endometrial stripe lobe there is a trace amount of fluid within the endometrium. There is also fluid versus debris noted within the cervix. Direct inspection may be warranted. -3 cm uterine fibroid. -Coarse calcifications within the right fundus, nonspecific. Dictated By: Tray Brand MD Signed By: <Electronically signed by Tray Brand MD in OV> 11/25/23 0917 DD/ 1513 TD/TT: Brine Process Operator: PD Assessment & Plan Assessment & Plan (1) Fibroid: Code(s): D21.9 - Benign neoplasm of connective and other soft tissue, unspecified (2) Encounter to discuss test results: Code(s): Z71.2 - Person consulting for explanation of examination or test findings Plan Discussed: Counseled re: Leiomyoma: common pelvic neoplasm. Differential diagnosis-may include leiomyosarcoma which is a rare uterine sarcoma 3-7/100,000, difficult to distinguish from fibroids on ultrasound from uterine sarcoma's. Unlikely any single test will have a highly positive predictive value. Hysterectomy is not recommended for sole purpose of excluding malignant neoplasm. Report any PMB. Pelvic pressure, bloating, or pain. Consult for surgical exploration verses expectant management offered. Patient prefers ultrasound follow-up. Expectant management follow up in 6 months, then yearly for stability. Referral to MD if indicated for level of care. Advised to follow up with primary care as for abdominal pain, uncertain if fibroid is the only origin of discomfort. All of her questions and concerns were addressed to the best of my ability and shared decision making. She is agreeable to the plan of care. This note is constructed using voice recognition software. While every effort has been made to ensure accuracy, food service agent errors may have been included. Orders: Orders US pelvic and transvaginal 05/21/24 D21.9 - Benign neoplasm of connective and other soft tissue, unspecified Coding Level of Care Code Est Pt Level 3 (16028) Diagnoses Fibroid D21.9 Encounter to discuss test results Z71.2
== END 2023-12-06 08:57 | disposition home or self-care (01) ==
PROVIDERS: PCP Internal Medicine; Visit Provider Advanced Practice Midwife
DX: D21.9 Benign neoplasm of connective and other soft tissue, unspecified (principal); Z71.2 Person consulting for explanation of examination or test findings
CPT/HCPCS: 99213

== ENCOUNTER → 2023-12-06 08:32 | Outpatient (BNVA) | payer OTHER, SELFPAY | PROVIDERS: PCP Internal Medicine; Visit Provider Advanced Practice Midwife ==

== ENCOUNTER 2023-12-30 10:45 | Outpatient (REF) | payer OTHER, SELFPAY ==
[2023-12-30 13:26] LABS: MANUAL DIFF FLAG NO
[2023-12-30 13:43] LABS: Basophils Percent Auto 0.6 % (0-2); Eosinophils Absolute Auto 0.2 X10*3/uL (0.0-0.4); Eosinophils Percent Auto 3.7 % (0-4); Hematocrit 38.7 % (37.0-47.0); Hemoglobin 12.7 g/dl (12.0-16.0); Imm Gran Abs Auto 0.02 X10*3/uL (0.00-0.03); Imm Gran Pct Auto 0.3 % (0.0-0.4); Lymphocytes Percent Auto 32.5 % (20-40); Mean Corpuscular HGB Conc 32.8 g/dl (31.0-35.0); Mean Corpuscular Hemoglobin 28.3 pg (27.0-33.0); Mean Corpuscular Volume 86.2 fL (80.0-98.0); Mean Platelet Volume 11.1 fL (9.4-12.3); Monocytes Absolute Auto 0.7 X10*3/uL (0.1-1.2); Monocytes Percent Auto 10.5 % (2-11); Neutrophils Absolute Auto 3.3 x10*3/uL (2.0-8.3); Neutrophils Percent Auto 52.4 % (45-73); Platelet Count 255 X10*3/uL (160-400); Red Blood Count 4.49 X10*6/uL (4.20-5.50); Red Cell Distribution Width 12.7 % (11.0-16.0); White Blood Count 6.3 X10*3/uL (4.8-10.8)
[2023-12-30 14:10] LABS: Alanine Aminotransferase 37 U/L (0-31); Albumin Level 4.4 g/dL (3.5-5.0); Alkaline Phosphatase 68 U/L (39-117); Anion Gap 14 (12-20); Aspartate Amino Transferase 25 U/L (5-31); Bilirubin Total 0.3 mg/dL (0.0-1.0); Blood Urea Nitrogen 18 mg/dL (9-16); C Reactive Protein 1.06 mg/dL (< or = 0.50); Calcium 9.6 mg/dL (8.4-10.2); Carbon Dioxide 30 mmol/L (22-29); Chloride 103 mmol/L (96-108); Estimated Glomerular Filt Rate > 60; Glucose Random 121 mg/dL (60-115); Potassium 4.1 mmol/L (3.3-5.1); Sodium 143 mmol/L (135-145); Total Protein 7.4 g/dL (6.5-8.0)
[2023-12-30 14:23] LABS: Erythrocyte Sedimentation Rate 14 MM/HR (0-20)
[2023-12-30 14:27] LABS: Free T4 (Free Thyroxine) 0.79 ng/dL (0.71-1.85); Thyroid Stimulating Hormone 1.05 uIU/mL (0.32-4.0)
[2024-01-04 23:23] LABS: NT-proBNP 37 pg/mL (<125)
== END 2023-12-30 10:46 | disposition home or self-care (01) ==
LOC: HO.MANLDS 10:45
PROVIDERS: Visit Provider Physician Assistant
DX: R60.0 Localized edema (principal)
CPT/HCPCS: 36415; 80053; 83735; 83880; 84439; 84443; 85025; 85652; 86140

== ENCOUNTER 2024-04-03 09:24 | Outpatient (REF) | payer OTHER, SELFPAY ==
[2024-04-03 15:16] LABS: Erythrocyte Sedimentation Rate 17 MM/HR (0-20)
[2024-04-04 12:49] LABS: Lyme Abs Screen <0.90 index
[2024-04-10 10:04] LABS: A. Phagocytophilum Ab IgG <1:64 (<1:64); A. Phagocytophilum Ab IgM <1:20 (<1:20); E. Chaffeensis Ab IgG <1:64 (<1:64); E. Chaffeensis Ab IgM <1:20 (<1:20)
== END 2024-04-03 09:25 | disposition home or self-care (01) ==
LOC: HO.MANLDS 09:24
PROVIDERS: Visit Provider Physician Assistant
DX: R53.83 Other fatigue (principal)
CPT/HCPCS: 36415; 85652; 86140; 86617; 86618; 86666

== ENCOUNTER 2024-05-22 10:42 | Outpatient (REF) | payer OTHER, SELFPAY ==
--- NOTE | ~2024-05-22 | US_ITS ---
EXAMINATION: US PELVIS TRANSABDOMINAL AND TRANSVAGINAL CLINICAL INFORMATION: Leiomyoma. COMPARISON: Pelvic ultrasound 11/22/2023. TECHNIQUE: Ultrasound of the pelvis is performed using both transabdominal and transvaginal transducers along with Doppler. Transvaginal imaging is performed due to inadequate visualization transabdominally. FINDINGS: UTERUS: The uterus is anteverted and measures 8.0 x 2.4 x 4.7 cm. The double wall endometrial thickness is 2 mm. The uterus is smooth in contour and has normal myometrial echogenicity. A single fibroid at the cornu is seen which appears smaller measuring 2.1 x 2.5 x 2.0 cm, previously 2.8 x 2.8 x 2.4 cm. There is a cluster of calcifications seen in the anterior uterus without an associated mass, similar to prior. Nabothian cysts are present some of which have calcifications. ADNEXA: Neither ovary could be seen. No free fluid. US/US pelvic and transvaginal IMPRESSION: 1. Uterine fibroid appears smaller. 2. Neither ovary could be seen. Electronically signed by: Giorgio Schwarz MD 05/23/2024 05:03 PM EDT
== END 2024-05-22 10:43 | disposition home or self-care (01) ==
LOC: HO.US 10:42
PROVIDERS: PCP Internal Medicine; Visit Provider Advanced Practice Midwife
DX: D21.9 Benign neoplasm of connective and other soft tissue, unspecified (principal)
CPT/HCPCS: 76830; 76856

== ENCOUNTER 2024-05-29 10:58 | Outpatient (AMB) | payer OTHER, SELFPAY ==
--- NOTE | 2024-05-29 10:58 | A.OFFVIS_ITS ---
Intake Visit Reasons: US follow up Intake Note: [phone] Allergies No Known Allergies Allergy (Verified 12/06/23 08:35) HPI Comments Details: Tele [place] visit 11:13-11:18. Video was unable to be viewed due to technical issue converted to land line only. I spent minutes speaking with the patient on the phone plus an additional 5 minutes reviewing the chart and 5 minutes updating the medical record for a total of 15minutes. Patient presents via phone to discuss: Ultrasound follow up, history of fibroids and previous pelvic pain. She reports the pelvic pain has resolved a month after her last visit proximally in January. She denies any vaginal bleeding or other concerns. [facility] Medical History (Updated 12/06/23 @ 08:54 by Margaret Corado CNM) Fibroid Acid reflux High blood pressure Surgical History History of bunionectomy Hx of tonsillectomy Hx of bilateral breast reduction surgery Family History Maternal Grandfather Bladder cancer Mother Bladder cancer Maternal Uncle Bladder cancer Maternal Uncle Bladder cancer Social History Alcohol intake: current Alcohol intake frequency: a few times a week Female Reproductive History Menstrual Age of Menarche: 11 Telehealth Telehealth Telehealth Platform: [facility] Location of provider rendering services: practice address Location of patient: other Patient Identification confirmed using: Name, : Yes Telehealth method: video Patient verbally consented to treatment: Yes Patient verbally consented to billing insurance company: Yes Patient informed of any privacy concerns related to visit: Yes Results Reviewed Results Reviewed: [address] [address] Ultrasound Report Signed Patient: Rhea Caballero MR#: [id number] : 1965 Acct:[id number] Age/Sex: 58 / F ADM Date: 05/22/24 Loc: HO. Attending Dr: Margaret Corado CNM Ordering Physician: Margaret Corado CNM Date of Service: 05/22/24 Procedure(s): US pelvic and transvaginal Accession Number(s): [id number] cc: Wallace Keyes MD; Margaret Corado CNM~ EXAMINATION: US PELVIS TRANSABDOMINAL AND TRANSVAGINAL CLINICAL INFORMATION: Leiomyoma. COMPARISON: Pelvic ultrasound 11/22/2023. TECHNIQUE: Ultrasound of the pelvis is performed using both transabdominal and transvaginal transducers along with Doppler. Transvaginal imaging is performed due to inadequate visualization transabdominally. FINDINGS: UTERUS: The uterus is anteverted and measures 8.0 x 2.4 x 4.7 cm. The double wall endometrial thickness is 2 mm. The uterus is smooth in contour and has normal myometrial echogenicity. A single fibroid at the cornu is seen which appears smaller measuring 2.1 x 2.5 x 2.0 cm, previously 2.8 x 2.8 x 2.4 cm. There is a cluster of calcifications seen in the anterior uterus without an associated mass, similar to prior. Nabothian cysts are present some of which have calcifications. ADNEXA: Neither ovary could be seen. No free fluid. US/US pelvic and transvaginal IMPRESSION: 1. Uterine fibroid appears smaller. 2. Neither ovary could be seen. 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 Annual exam scheduled in November. Counseled re: Leiomyoma: common pelvic neoplasm. Differential diagnosis-may include but not limited to- leiomyosarcoma which is a rare uterine sarcoma 3-7/100,000, difficult to distinguish from fibroids on ultrasound from uterine sarcoma's. Unlikely any single test will have a highly positive predictive value. Hysterectomy is not recommended for sole purpose of excluding malignant neoplasm. Consult for surgical exploration, medical treatment, other treatments, verses expectant management, pros and cons, risks and benefits. Expectant management follow up in 6 months, then yearly for stability. Report any PMB. Pelvic pressure, bloating, or pain. Referral to MD if indicated for level of care if indicated. All of her questions and concerns were addressed to the best of my ability and shared decision making. She is agreeable to the plan of care. This note is constructed using voice recognition software. While every effort has been made to ensure accuracy, identification clerk errors may have been included. Coding Level of Care Code Tele Est Pt Level 2 (45099) Diagnoses Fibroid D21.9 Encounter to discuss test results Z71.2
== END 2024-05-29 12:58 | disposition home or self-care (01) ==
LOC: HO.HWS 10:58
PROVIDERS: PCP Internal Medicine; Visit Provider Advanced Practice Midwife
DX: D21.9 Benign neoplasm of connective and other soft tissue, unspecified (principal); Z71.2 Person consulting for explanation of examination or test findings
CPT/HCPCS: 99212

== ENCOUNTER → 2024-05-29 10:58 | Outpatient (BNVA) | payer OTHER, SELFPAY | PROVIDERS: PCP Internal Medicine; Visit Provider Advanced Practice Midwife ==

== ENCOUNTER 2024-11-13 15:34 | Outpatient (REF) | payer OTHER, SELFPAY ==
--- OUTSIDE RECORDS SUMMARY | 2024-11-13 18:52 | XMS_ITS | Continuity of Care Document ---
Author Organization [facility] Address [address] 2nd [address] [place] [address]- Care Team Providers Care Food Safety Coordinator Name Role Phone Wallace Keyes DO Primary Care Physician Encounter [facility] Date(s): 10/12/24 - 10/19/24 [facility] [address] [place] [address]- Encounter Diagnosis Hypertension(Discharge Diagnosis) - 10/12/24 Obese class I(Discharge Diagnosis) - 10/12/24 Obstructive sleep apnea(Discharge Diagnosis) - 10/12/24 Attending Physician: Felix Frankel Admitting Physician: Felix Frankel Referring Physician: Wallace Keyes DO Encounter Type: Office Visit Allergies, Adverse Reactions, Alerts No Known Medication Allergies Medications hydrochlorothiazide 25 mg oral tablet 25 mg, 1, tablet, By Mouth, Daily, # 30 tablet, Refills 5, Tot. Refills 5, Maintenance, 01/13/24 2:51:00 PM EDT, Route to Pharmacy Electronically, [facility]/pharmacy #[id number], Partial fill upon patient requestif the prescription is for a schedule II opioid drug., 165, cm, 01/13/24 14:32:00 EDT, Height, 87.5, kg, 02/04/23 6:49:00 EDT, Dry Weight Start Date: 01/13/24 Status: Ordered Quantity: 30.0 Unit: tablet Repeat number: 6 losartan 100 mg oral tablet 1 tablet = 100 mg, By Mouth, Daily, # 90 tablet, 1 Refills, Maintenance, 10/12/24 3:04:00 PM EST, Tablet, [facility]/pharmacy #[id number], Partial fill upon patient request if the prescription is for a schedule II opioid drug., 165, cm, 10/12/24 14:40:00 EST, Height, 88, kg, 06/20/24 14:26:00 EDT, Dry Weight Start Date: 10/12/24 Status: Ordered Quantity: 90.0 Unit: tablet Repeat number: 2 Miscellaneous Rx 0 Refills, Maintenance, probiotic omeprazoe agesum glycinate zinc d3, 10/12/24 2:40:00 PM EST Start Date: 10/12/24 Status: Ordered Repeat number: 1 Miscellaneous Rx 0 Refills, Maintenance, MULTIVITAMINS, ALLERGY PILLS, 02/24/24 2:09:00 PM EDT Start Date: 02/24/24 Status: Ordered Repeat number: 1 omeprazole 20 mg oral delayed release tablet 1 tablet = 20 mg, By Mouth, 2 times a day, # 60 tablet, 1 Refills, Maintenance, 12/09/22 9:05:00 AM EDT, EC Tablet, [facility]/pharmacy #[id number], Partial fill upon patient request if the prescription is for a schedule II opioid drug., 165, cm, 12/09/22 7:08:00 EDT, Height, 87, kg, 12/08/22 15:16:00 EDT, Dry Weight Start Date: 12/09/22 Status: Ordered Quantity: 60.0 Unit: tablet Repeat number: 2 ProAir HFA 90 mcg/inh inhalation aerosol with adapter 1, puffs, Inhalation, Every 4 hours, PRN, # 8.5 Gm, Refills 0, Maintenance, 07/13/18 11:30:28 AM EST, Aerosol Start Date: 07/13/18 Status: Ordered Quantity: 8.5 Unit: g Repeat number: 1 Problem List Condition Confirmation Course Effective Dates Status Health St atus Informant Obese class I Confirmed Active Diagnosis Diagnosis Type Effective Dates Health Status Clinical Service Informant Hypertension Discharge Diagnosis 10/12/24 Obese class I Discharge Diagnosis 10/12/24 Obstructive sleep apnea Discharge Diagnosis 10/12/24 Vital Signs Most recent to oldest [Reference Range]: 1 Height 165 cm (10/12/24 2:40 PM) Weight 92.9 kg (10/12/24 2:40 PM) Oxygen Saturation [94-100 %] 100 % (10/12/24 2:40 PM) Pulse Rate [55-90 bpm] 84 bpm (10/12/24 2:40 PM) Body Mass Index [18.5-24.99 kg/m2] 34.12 kg/m2 *>HHI* (10/12/24 2:40 PM) Blood Pressure [90-138/55-84 mm Hg] 154/ 93mm Hg *H* (10/12/24 2:40 PM) Blood pressure sites Arm, left (10/12/24 2:40 PM) Weight Obtained Via Standing scale (10/12/24 2:40 PM) Cardiology Outpatient Note * Felix Frankel: PERFORM Event Display: Cardiology Note Office Authored Date: [id number] Patient: ??BRONSON CABALLERO ? Age:??59 Years?Sex:??Female?:??1965?? Patient Hx Cardiology Shared Clinical Summary 1.?? Hypertension 2.?? GERD 3.?? Admission for chest discomfort 12/07/22-12/09/22. She underwent exercise nuclear stress test whereshe was able to exercise for 6 minutes and 38 seconds and achieved 7.9 METS with some chest discomfort in early recovery that resolved shortly after.?? MPI revealed a small, mild in intensity distal anterior wall with reversible defect concerning for myocardial ischemia versus artifact, EF 69-72%.? - Coronary CTA 02/04/23 showed focal calcification at the left main ostium with no significant stenosis and normal coronaries elsewhere. 4. ??Obesity History of Present Illness/Interval History Ms. Caballero is??returning for ongoing care. She was last seen by Dr. Lind 07/2024. She was noted to be hypertensive. HCTZ was increased to 25mg twice daily and losartan was increased to 50mg daily in the interim.? She reports feeling well from a cardiac standpoint. She has no new cardiac symptoms to report. She has occasional atypical chest discomfort that she attributes to her history of Velasquez's esophagus. She denies shortness of breath. She has occasional lightheadedness without presyncope or syncope.She notes chest pounding at night at times, but this is not new.? Review of Systems See HPI Physical Exam Vitals & Measurements HR:??84??(Peripheral)?? BP:??154/93?? SpO2:??100%?? HT:??165??cm?? WT:??92.9??kg?? BMI:??34.12?? Weight lb/oz: 204 lb 13 oz Constitutional: Alert, in no distress. Respiratory: Clear to auscultation. No wheezing, rales or rhonchi. Cardiovascular: Regular rate and rhythm, S1 S2. No murmurs, rubs, gallops. Extremities: Warm, no edema. No cyanosis or clubbing. Assessment/Plan 1.??Hypertension ??Now well controlled on current regimen. Continues on losartan 50mg daily and HCTZ 25mg twice daily. Did not tolerate amlodipine due to peripheral edema.?? - Increase losartan to 100mg daily. - Nurse BP check in 4 weeks. Ordered: Basic Metabolic Panel ?? 2.??Obese class I ??Her obesity can contribute??to her elevated blood pressure and overall cardiovascular risk. Therewas??discussion at her previous visit to consider starting a GLP-1 agonist. She has tried reducing carbohydrate intake??but this??has??been unsuccessful. She does not??have??much time??for??physical a ctivity. She wishes to??pursue GLP-1 agonist to aid in??weight loss.? 3.??Obstructive sleep apnea ??Mild MAILE on home sleep study. Sleep medicine consultation pending.? Orders: Losartan, 1 tablet = 100 mg, By Mouth, Daily, # 90 tablet, 1 Refills, Maintenance, 10/12/24 15:04:00 EST, Tablet, [id number], Partial fill upon patient request if the prescription is for a schedule II opioid drug., 165, cm, 10/12/24 14:40:00 EST, Height... ?? Follow up in 3 months. Problem List/Past Medical History Ongoing Obese class I Procedure/Surgical History No qualifying data available. Home Medications hydrochlorothiazide 25 mg oral tablet, 25 mg= 1 tablet, By Mouth, Daily, 5 refills losartan 100 mg oral tablet, 100 mg= 1 tablet, By Mouth, Daily, 1 refills Miscellaneous Rx Miscellaneous Rx omeprazole 20 mg oral delayed release tablet, 20 mg= 1 tablet, By Mouth, 2 times a day, 1 refills ProAir HFA 90 mcg/inh inhalation aerosol with adapter, 1 puffs, Inhalation, Every 4 hours, PRN Lab Results Cardiology Labs Blood Count & Diff?? General Chemistry?? WBC: 7.2 k/mm3 (06/20/24) Sodium: 141 mmol/L (08/08/24) RBC: 4.58 m/mm3 (06/20/24) Potassium: 3.8 mmol/L (08/08/24) Hgb: 13 Gm/dL (06/20/24) Chloride: 100 mmol/L (08/08/24) Hct: 39.7 % (06/20/24) Bicarbonate Level: 23 mmol/L (08/08/24) MCV: 86.7 femtoliters (06/20/24) Anion Gap: 18 mmol/L (08/08/24) Platelet Count: 238 k/mm3 (06/20/24) Glucose Level: 89 mg/dL (08/08/24) ?? Hemoglobin A1C (Monitoring):??5.7 %??High (07/10/24) ?? BUN: 12 mg/dL (06/20/24) ?? BUN: 19 mg/dL (08/08/24) ?? Creatinine-Blood: 0.99 mg/dL (08/08/24) ?? Estimated GFR Creatinine: 66 ML/MIN/1.73 M2 (08/08/24) ?? Calcium: 10 mg/dL (08/08/24) Diagnostic Impression CT CT Heart/Coronary/3D/Morph ?? 10:40:18 IMPRESSION: ?? There is focal calcification at the left main ostium with no significant stenosis. Rest of the coronary vasculature is unremarkable. Codominant. WSN: [id number] ? Ordering Physician: Felix George ?? Signed By: Danielle Bucio MD ECG ECG 12-Lead ?? 14:17:32 Please click on pdf link to open report ?? Signed By: Cody Dangelo MD ?? ECG 12-Lead ?? 14:17:32 Ventricular Rate: 84 BPM Atrial Rate: 84 BPM P-R Interval: 130 ms QRS Duration: 92 ms Q-T Interval: 356 ms QTC Calculation(Bazett): 420 ms P Wild Horse: 62 degrees R Wild Horse: 48 degrees T Wild Horse: 43 degrees Normal sinus rhythm Normal ECG When compared with ECG of 13-JAN-2024 14:28, No significant change was found Confirmed ?? Signed By: Cody Dangelo MD Stress Test NM Myocard Perf SPECT Multi ?? 11:15:00 Summary 1. Myocardial perfusion imaging is abnormal with a small, mild in intensity distal anterior wall reversible defect, concerning for myocardial ischemia. ?? 2. LV function is normal with an E.F. of 69 % at rest and 72% with stress with normal wall motion and thickening. ?? 3. EKG portion of the stress test is reported separately. ?? Signatures _ _ ?? Signed By: Unruly DELACRUZ, Jared Petersen No qualifying data available. Echo Echocardiogram - Complete ?? 11:10:14 Summary Limited follow up study. ?? The left ventricular size is normal. Left ventricular wall thickness is normal. Normal LV systolic function. Ejection fraction is 55-65%. ?? The left atrium is dilated. The interatrial septum is well seen. There is mild non specific interatrial septal thickening. No mass is seen. ?? The right ventricle is normal in size and function. ?? Comparison Comparison is made to the study of January 17, 2023. The interatrial septum is well seen. There is mild non specific interatrial septal thickening. No mass is seen. ?? Signature ?? Signed By: Milena Fuller MD Note * Jim Merino: PERFORM Event Display: Patient Education/Instruction Authored Date: [id number] Ambulatory Adult Visit Summary [facility] [address] [address] Name: BRONSON CABALLERO : 1965?? Visit: 10/12/2024 14:23?? Ambulatory Visit Instructions ?? Your Care Team Primary Care Provider Wallace Keyes DO? This Visit Provider Felix Frankel Your Diagnosis Hypertension Obese class I Vitals Signs Pulse Rate: 84 bpm Height: 165 cm Systolic Blood Pressure:??154 mm Hg??High Weight: 92.9 kg Diastolic Blood Pressure:??93 mm Hg??High Body Mass Index:??34.12 kg/m2??Critical Oxygen Saturation: 100 % Body surface area: 2.06 What to do next Scheduled Follow-Up Appointments Tuesday 3:00 PM EST ?? Where: [facility] [address] [address]- Status: Pending Future Orders Basic Metabolic Panel - Routine, Once, 01/13/24 14:51:00 EDT, Single or Recurring Future Order, [facility], Blood?? Basic Metabolic Panel - Routine, Once, 10/26/24 6:00:00 EST, Future Order, [facility], Blood?? Medications The list below reflects the information in our records and provided by you today along with any changes made during this visit. Please continue your medications until treatment is completed or stopped by your provider. If this is different from the information you have or there are other questions,please contact the prescribing provider. What How Much When Instructions Changed Losartan (losartan 100 mg oral tablet) 1 tab(s) Oral Daily Pickup at [facility]/pharmacy #[id number] Unchanged Albuterol (ProAir HFA 90 mcg/ inh inhalation aerosol with adapter) 1 puff(s) Inhalation Every 4 hours as needed for for wheezing Unchanged Hydrochlorothiazide (hydrochlorothiazide 25 mg oral tablet) 1 tab(s) Oral Daily Unchanged Miscellaneous Rx MULTIVITAMINS, ALLERGY PILLS ?? Unchanged Miscellaneous Rx probiotic omeprazoe ?? agesum glycinate zinc d3 ?? Unchanged Omeprazole (omeprazole 20 mg oral delayed release tablet) 1 tab(s) Oral Twice a day Pharmacy Information [facility]/pharmacy #5: [address] [place], [place] [id number] [phone] Test Performed Below is a partial list of the tests performed during your Visit. You may have had other tests and procedures not included in this list. Please discuss all test results with your provider. Basic Metabolic Panel?-- Results Pending -- Medications and Immunizations Administered Medications Given During Visit No medications given during this visit.?? Allergies (NKA means No Known Allergies) No Known Medication Allergies Common Emergency Awareness Tips IS IT A STROKE? Act FAST and Check for these signs: FACE Does the face look uneven? ARM Does one arm drift down? SPEECH Does their speech sound strange? TIME Call at any sign of stroke ?? Heart Attack Signs Chest discomfort: Most heart attacks involve discomfort in the center of the chest and lasts more than a few minutes, or goes away and comes back. It can feel like uncomfortable pressure, squeezing, fullness or pain. Discomfort in upper body: Symptoms can include pain or discomfort in one or both arms, back, neck, jaw or stomach. Shortness of breath: With or without discomfort. Other signs: Breaking out in a cold sweat, nausea, or lightheaded. Remember, MINUTES DO MATTER. If you experience any of these heart attack warning signs, call to get immediate medical attention! ?? Smoking can increase your chances of developing chronic health problems and can cause harmful effects to other family members in your house. If you smoke, you are strongly encouraged to quit. Please call [employer] Link at [phone] or [phone] ([phone]) or log in to [email or web address] for referrals to smoking cessation programs. ?? The National Suicide Prevention Hotline is available 28/03 if you or someone you know needs to find a reason to keep living. By calling 0-575-725-htwp (7570) you'll be connected to a skilled, trained counselor at a crisis center in your area. [facility] [employer] Portal You can view and manage your care through the patient portal or by using a health care wilmer of your choosing. [employer] is a website that allows you to securely view your medical information including your hospital discharge summary, office visit summaries, medications and follow-up visits. You can also request appointments, renew medications, and request access to your medical information using a health care wilmer of your choosing, or just ask a question. You can enroll at [email or web address] or register during your next office visit. [facility], in keeping with [facility] guidance, no longer requires face masks for staff, patientsor visitors in most situations. Similiar to time spent indoors at other locations, there is the chance that you were exposed to repiratory viruses during your time with us (such as flu or COVID-19). If you develop symptoms concerning for a viral respiratory infection, please seek testing (and treatment if indicated) from your medical provider or home test kit. ?? Disclaimer: The information provided is of a general nature and is intended to be used in conjunction with the recommendations and advice of your health care practitioner. Every effort has been made to ensure that the information provided is accurate and complete at the time it is provided to you however, as your needs change, or, as new information becomes available, different or additional instructions may be required. ?? If you have questions, please consult with your primary care provider or pharmacist, as appropriate. This information is not intended to serve as substitution for assessment and evaluation by a qualified health care provider. If you do not have a primary care provider, you may find a [facility] provider by calling [facility] [employer] Link at [phone]. Patient Care team information Care Team Personnel Name: Wallace Keyes DO Position: Reference Physician Member Role: PCP Address: [address] [place] [address] [place] [address]- Telecom: Care Team Related Persons Name: POOJA WEEKS Name: BIB CABALLERO Name: CALIN ROBERTS Insurance Providers Guarantor name: BRONSONJerod CR[employer] Plan Information #: 1 Payer: [facility] POS Member Number: [id number] Policy Number: NA Group Number: NA Health Plan Information #: 2 Payer: [facility] POS Member Number: [id number] Policy Number: NA Group Number: NA
--- OUTSIDE RECORDS SUMMARY | 2024-11-13 18:52 | XMS_ITS | Data Portability ---
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 stewart Abdominal pain 88140245 R10.13 fu with US abdomen (?gallblad darwin) Atypical chest pain 1025 03132 R07.89 negative cardiac work up > cardio referred back to PCP for further worknext ? would be if it's Low back pain 546550743 M54.59 needs for flying Motion sickness 99252125 T75.3XXA agreed to patchgong to [place] Cough 54457076 R05.1 will fu with XR for cough and sob [id number] EUGENE CORRIGAN Internal Medicine [address] [facility] [address],[place] [address] [facility] [place] [address] 04/18/2023 15:47:38 04/19/2023 09:49:11 Asthma 786532750 J45.30 stable Essential hypertension 39310421 I10 BP well controlled , stable Gastroesop hageal reflux disease 157097118 K21.9 seeing GI tomorrow Palpitations 97824315 R0 0.2 will f/u with blood work as wellseeing GI as well for eval of possible GERD causing her symptoms [id number] EUGENE CORRIGAN [facility] [address] [facility] [address],[place] [address] [place] [facility] [address] 05/31/2023 13:25:31 05/31/2023 15:19:26 Asthma 634491238 J45.30 stable Essential hypertension 61320280 I10 BP well controlled , stable Palpitations 03892017 R0 0.2 will f/u with blood work as wellseeing GI as well for eval of possible GERD causing her symptoms Tachycardia 9816679 R00. 0 stable Bite of spider 928443263 W57.XXXA will start on Screening mammography 24 449600 Z12.31 will set up again with new orders [id number] EUGENE CORRIGAN [facility] [address] [facility] [address],[place] [address] [facility] [address] 09/20/2023 08:45:58 09/20/2023 13:43:59 Angina pectoris 420989839 I20.1 stable Low back pain 226533111 M54.59 will need new MRI Right uppe r quadrant pain 765144491 R10.11 will call GI [id number] EUGENE CORRIGAN Internal Medicine [address] [facility] [address],[place] [address] 10/09/2024 14:03:23 10/09/2024 14:59:30 Depression screening 840108030 Z13.31 SCREENING NEGATIVE Essential hypertension 37001950 I10 lower than usual at home, has been working with cardio to get her numbers approved Sleep apnea 39313602 G47 .39 recent diagnosis, hasn't started with the CPAP yet, waiting for f/u Resistant hypertensive disorder 9018533849 37508 I1A.0 send in order for r/o renal artery stenosis Screening mammography 24 189921 Z12.31 will set up again with new orders Health Concerns Section Related Observation LastModified by Organization Detai ls LastModified Time None Recorded Concern Status LastModified by Organization Details LastModified Time None Recorded Advance Directives Directive None Recorded Payers Encounter Date Sequence Insurance Name Policy Number Policy Mendez Covered Member ID Mendez Member ID Guarantor Name 02/21/2023 1 [facility] [place] ([place]) [id number] Rhea Caballero [id number] Rhea Caballero 04/18/2023 1 [facility] Rhea Caballero [id number] Rhea Dowellt 05/31/2023 1 [facility] Rhea Caballero [id number] Rhea Caballero 09/20/2023 1 [facility] Rhea Caballero [id number] Rhea Dowellt 10/09/2024 1 [facility] Rhea Dowellt [id number] Rhea Caballero Notes Date Note Type Note Provider Name and Address Organization Details Recorded Time 02/22/20 23 text/htm l f/u the patient was having chest pains on Tuesdaythe patient saw cardiology; they didn't find anything to explain her chest painthe patient agreed to GI and pulm r/o now due to negative cardio work up will be getting a smart watch to record her HR and her rhythm needs ativan refilled for trip and needs motion sickness patchwill f/u patient after her trip and to f/u with patient after more testing will probs need a refill of prilosec GAUTAM TRYBA, [place] [address] [place], [address], [facility] Internal [facility] 02/21/2023 09:44:44 04/18/20 23 text/htm l f/u palpitations has GI f/u tomorrow HTN: stable at home palpitations: agreed to additional blood-work atypical chest pain: did have a few other flare upscardiac work up negative leaves GI or possible def or anemia or thyroid problemhaving her do more lab work EUGENE CORRIGAN [address] [place], [address], [facility] 04/18/2023 16:24:10 05/31/20 23 text/htm l asthma: stable HTN: today in the office the patient BP is 128/76 sitting L armthe patient is doing well on the BP medication with no side effects and no adjustment of their medications needed today at the appointmentwell-controlle d on medicationdenies chest pain, sob, ankle swelling, orthopnea, palpitations complete bloodwork was all wnlno other indicators for what is causing the discomfortwill need scope which is scheduled > possible worsening of hiatal hernia EUGENE CORRIGAN [address] [place], [address], [facility] 05/31/2023 13:53:52 09/20/19 24 text/htm l c/o low back pain The patient is participating in this appointment via telemedicine communication with a phone call/video calling service ([employer])The patient consents to use of these platforms in place of an in-person appointment due to either sick symptoms the patient is presenting with or current office closure due to COVID exposure in order to keep our office staff and patients safe the patient reports that she has been having low back pain, above the left buttockthe patient reports pain is worse with sitting, lifting left leg, putting her shoe onhad radiation up and down the left leg the last imaging she had done was 2020 the patient reports she is having unrelated gallbladder pain (RUQ)will call EUGENE CHRISTOPHER [address] [place], [address], [facility] Medicine 09/20/2023 11:25:18 10/09/19 25 text/htm l f/u 1 year check the patient recently diagnosed with sleep apneahasn't seen them yet for the CPAPshould help with her BP has f/u with cardiologyrecommended f/u check to r/o renal artery stenosis or involvement from her kidneys causing resistant given lab order, scheduling US the patient is working on her sleepcan't be on sedatives due to the sleep apnea otherwise no other concerns EUGENE CORRIGAN [address] [place] [address], [place], [address], [facility] 10/09/2024 14:43:55 OBGyn Episode No OBEpisode recorded.
== END 2024-11-13 15:35 | disposition home or self-care (01) ==
LOC: HO.MAMMO 15:34
PROVIDERS: PCP Physician Assistant; Visit Provider Physician Assistant
DX: Z12.31 Encounter for screening mammogram for malignant neoplasm of breast (principal)
CPT/HCPCS: 77063; 77067

== ENCOUNTER → 2024-11-13 15:45 | Outpatient (BNV) | payer OTHER, SELFPAY | PROVIDERS: PCP Physician Assistant; Visit Provider Internal Medicine | DX: Z12.31 Encounter for screening mammogram for malignant neoplasm of breast (principal) | CPT/HCPCS: 77063; 77067 ==

== ENCOUNTER 2024-11-14 07:54 | Outpatient (REF) | payer OTHER, SELFPAY ==
--- NOTE | ~2024-11-14 | US_ITS ---
. EXAMINATION: Ultrasound renal Doppler. CLINICAL INFORMATION: Persistent hypertensive disorder. COMPARISON: No priors. TECHNIQUE: Color Doppler interrogation of the main renal arteries and the abdominal aorta. FINDINGS: Spectral Doppler analysis: Right Kidney: -Peak systolic velocity in the proximal right renal artery = 98 cm/s. Normal waveforms. -Peak systolic velocity in the mid right renal artery = 107 cm/s. Normal waveforms. -Peak systolic velocity in the distal right renal artery = 68 cm/s. Normal waveforms. -Patent right renal vein. -Upper pole interlobar artery resistive index of 0.65. -Midpole interlobar artery resistive index of 0.74. -Lower pole interlobar artery resistive index of 0.69. Left Kidney: -Peak systolic velocity in the proximal left renal artery = 106 cm/s. Normal waveforms. -Peak systolic velocity in the mid left renal artery = 81 cm/s. Normal waveforms. -Peak systolic velocity in the distal left renal artery = 79 cm/s. Normal waveforms. -Patent left renal vein. -Upper pole interlobar artery resistive index of 0.7. -Mid pole interlobar artery resistive index of 0.66. -lower pole interlobar artery resistive index of 0.71. Aorta: -Peak systolic velocity = 102 cm/s. US/US renal doppler IMPRESSION: No hemodynamically renal artery stenosis. Electronically signed by: Reginald Maharaj MD 11/14/2024 08:41 AM EDT
--- OUTSIDE RECORDS SUMMARY | 2024-11-14 07:57 | XMS_ITS | Continuity of Care Document ---
Author Organization [facility] Address [address] [facility] [address] [place] [address]- [facility] Name Relationship Address Phone BIB QUINTANA spouse Unknown Unavailable ARMANDO, CALIN Other Unknown Unavailable MICKY, POOJA mother Unknown Unavailabl e Care Team Providers Care [employer] Presser Name Role Phone Wali COLE Wallace Feldman Primary Care Physician [phone] Encounter [facility] Date(s): 11/06/24 - 11/13/24 [facility] [place] [address] [place], [place] [address] Attending Physician: Felix Frankel Admitting Physician: Felix Frankel Referring Physician: Felix Frankel Encounter Type: Office Visit Allergies, Adverse Reactions, Alerts No Known Medication Allergies Medications carvedilol 6.25 mg oral tablet 6.25 mg, 1, tablet, By Mouth, 2 times a day, # 60 tablet, Refills 3, Tot. Refills 3, Maintenance, 10/30/24 4:32:00 PM EST, Route to Pharmacy Electronically, [id number], Partial fill upon patient request if the prescription is for a schedule II opioid drug., 165, cm, 10/12/24 14:40:00 EST, Height, 88, kg, 06/20/24 14:26:00 EDT, Dry Weight Start Date: 10/30/24 Status: Ordered Quantity: 60.0 Unit: tablet Repeat number: 4 hydrochlorothiazide 25 mg oral tablet 25 mg, 1, tablet, By Mouth, 2 times a day, # 30 tablet, Refills 5, Tot. Refills 5, Maintenance, 01/13/24 2:51:00 PM EDT, Route to Pharmacy Electronically, [id number], Partial fill upon patientrequest if the prescription is for a schedule II opioid drug., 165, cm, 01/13/24 14:32:00 EDT, Height, 87.5, kg, 02/04/23 6:49:00 EDT, Dry Weight Start Date: 01/13/24 Status: Ordered Quantity: 30.0 Unit: tablet Repeat number: 6 losartan 100 mg oral tablet 1 tablet = 100 mg, By Mouth, Daily, # 90 tablet, 1 Refills, Maintenance, 10/12/24 3:04:00 PM EST, Tablet, [facility]pharmacy #[id number], Partial fill upon patient request if [...] Maintenance, 12/09/22 9:05:00 AM EDT, EC Tablet, [facility]pharmacy #[id number], Partial fill upon patient request if [...] atus Informant Obese class I Confirmed Active Patient Care team information Care Team Personnel Name: Wallace Keyes DO Position: Reference Physician Member Role: PCP Address: [address] [place] [address] Internal Medicine [place] [id number] Telecom: Care Team Related Persons Name: MICKYLAZARORA Name: BIB QUINTANA Name: CALIN ROBERTS Insurance Providers Guarantor name: BRONSON QUINTANA Health Plan Information #: 1 [facility] Member Number: [id number] Policy Number: NA Group Number: NA Health Plan Information #: 2 P[facility]: [employer] [facility] Member Number: [id number] Policy Number: NA Group Number: NA
== END 2024-11-14 07:55 | disposition home or self-care (01) ==
LOC: HO.US 07:54
PROVIDERS: PCP Internal Medicine; Visit Provider Physician Assistant
DX: I10 Essential (primary) hypertension (principal)
CPT/HCPCS: 93975

== ENCOUNTER → 2024-11-14 07:57 | Outpatient (BNV) | payer OTHER, SELFPAY | PROVIDERS: PCP Internal Medicine; Visit Provider Radiology Diagnostic Radiology | DX: I1A.0 Resistant hypertension (principal) | CPT/HCPCS: 93975 ==

== ENCOUNTER 2025-02-13 14:06 | Outpatient (REF) | payer OTHER, SELFPAY ==
--- OUTSIDE RECORDS SUMMARY | 2025-02-13 16:11 | XMS_ITS | Continuity of Care Document ---
Author Organization [facility], [facility] Address [address] [place] [address] Assessment No assessment recorded. Plan of Treatment Reminders Order Date Submit Date Provider Last Modified By Organization Details Last Modified Time Details Appointments ANNUAL EXAM 2024 01:30P EUGENE MARSH Not available Not available Not available Lab hemoglobi n A1c, QN, blood 2024 025 [facility], [address] [place] [address], [id number], 02/13/2025 14:17:38 CMP, serum or plasma 2024 025 [facility], [address] [place] [address], [id number], 02/13/2025 14:17:39 CMP, serum or plasma 2024 025 [facility], [address] [place] [address], [id number], 02/13/2025 14:17:38 CBC w/ auto diff 2024 025 [facility], [address] [place] [address], [id number], 02/13/2025 14:17:38 Referral None recorded. Procedures None recorded. Surgeries None recorded. Imaging None recorded. Medication Orders naltrexon e [address] mg tablet [address] [facility][id number], [address] [place], [id number], 02/13/2025 13:37:34 Patient TargetsNo targets recorded. Patient InstructionsNo instructions recorded. Reason for Referral None Reported. Problems Name Problem SNOMED Code Status Onset Date Resolution Date Notes Provider Name and Address Organization Details Recorded Time COVID-19 496678318 [facility] 2 10:00:08 Nausea 800159139 Active 2021 Wallace Keyes DO [address] [place] [address], [id number], [facility] 2 13:30:47 Cervical radiculop athy 52834463 Active 2021 EUGENE CORRIGAN [address] [place] [address], [address], [facility] 2 14:49:19 Low back pain 367146140 Active 2021 EUGENE CORRIGAN [address] [place] [address], [address], [facility] 2 14:56:14 Atypical chest pain 698536742 Active 2022 EUGENE CORRIGAN [address] [place] [address], [address], [facility] 3 16:46:24 Prinzmeta l angina 13837198 Active 2022 EUGENE CORRIGAN [address] [place] [address], [address], [facility] 3 11:54:55 Heart murmur 20047632 Active 2022 EUGENE CORRIGAN [address] [place] [address], [address], [facility] 3 13:51:35 Tear of meniscus of knee 329257776 Active 2022 EUGENE CORRIGAN [address] [place] [address], [address], [facility] 3 14:03:13 Tear of lateral meniscus of knee 443569709 Active 2022 EUGENE CORRIGAN [address] [place], [address], [facility] 3 08:43:07 Dizziness 309441329 Active 2022 EUGENE CORRIGAN [address] [place], [address], [facility] 3 09:27:43 Abdominal pain 96114878 Active 2022 EUGENE CORRIGAN [address] [place], [address], [facility] 3 09:28:26 Motion sickness 61269377 Active 2022 EUGENE CORRIGAN [address] [place], [address], [facility] 3 09:34:16 Cough 94845441 Active 2022 EUGENE CORRIGAN [address] [place], [address], [facility] 3 09:37:31 Acute bronchiti s 50681521 Active 2022 EUGNEE CORRIGAN [address] [place] [address], [address], [facility] 3 16:51:23 Steatotic liver disease 463943932 Active 2022 EUGENE CORRIGAN [address] [place] [address], [address], [facility] 3 13:24:32 Tachycard ia 0177834 Active 2022 Wallace Keyes DO [address] [place] [address], [address], [facility] 3 16:58:46 Hyperglyc emia 56371756 Active 2022 Wallace Keyes DO [address] [place] [address], [address], [facility] 3 17:00:23 Palpitati ons 43342313 Active 2022 EUGENE CORRIGAN [address] [place] [address], [address], [facility] 3 16:01:49 Gluten sensitivi ty 095456667 Active 2022 EUGENE CORRIGAN [address] [place] [address], [address], [facility] 3 15:59:29 Pain of breast 60342819 Active 2022 EUGENE CORRIGAN [address] [place] [address], [address], [facility] 3 12:38:41 Angina pectoris 183730249 Active 2023 EUGENE CORRIGAN [address] [place] [address], [address], [facility] 4 11:21:49 Right upper quadrant pain 377177321 Active 2023 EUGENE CORRIGAN [address] [place] [address], [address], [facility] 4 11:21:56 Edema of lower extremity 146245986 Active 2023 EUGENE CORRIGAN [address] [place] [address], [address], [facility] 4 10:33:29 Fatigue 16252767 Active 2023 EUGENE CORRIGAN [address] [place] [address], [address], [facility] 4 11:42:20 Sleep apnea 88468289 Active 2024 EGUENE CORRIGAN [address] [place] [address], [address], [facility] 5 14:27:37 Resistant hypertens chuy disorder 56848455198 4109 Active 2024 EUGENE CORRIGAN [address] [place] [address], [address], [facility] 5 14:33:41 Alcohol use disorder Active 2024 EUGENE CORRIGAN [address] [place], [address], [facility] 5 13:36:15 Hyperkale sadiq 53135444 Active 2024 EUGENE CORRIGAN [address] [place], [address], [facility] 5 13:58:56 Asthma 690161209 Active 2017 MAICOL Joseline whyte [facility] 8 14:38:22 Allergic rhinitis 15219903 Active 2017 Joseline whyte [facility] 8 14:38:38 Gastroeso phageal reflux disease 029950903 Active 2017 Joseline whyte [facility] 8 14:38:44 Essential hypertens ion 21937579 Active 2017 [facility] 14:39:36 Coma 726042940 Active 2017 age 2 years Joseline whyte [facility] 8 14:39:56 Osteoarth ritis 153647274 Active 2017 knee Joseline whyte [facility] 8 14:40:16 Impaired fasting glycemia 314672800 Active 2017 Joseline whyte [facility] 8 14:40:21 Anxiety 57634402 Active 2017 Joseline whyte [facility] 8 14:40:29 Spinal cord injury 58509561 Active 2017 lesion ? MS Joseline whyte [facility] 8 14:41:23 Migraine 97757479 Active 2017 Joseline whyte [facility] 8 14:41:31 Problem Notes None recorded. Procedures Surgical History Date Name Laterality Status Provider Name and Address Organization Details Recorded Time 07/15/20 23 Colonoscopy completed Wallace Keyes, DO [address], [place], [address], [facility] 07/15/2023 17:03:39 Imaging Results None recorded. Procedure Notes None recorded. Medical Equipment None Reported. Allergies No known drug allergies Medications Name Sig Start Date Stop Date Status Note LastModified by Organization Details LastModified Time Prescriptio n - Prior Authorizati on Request 07/10 completed Not Available Not Available Not Available losartan 50 mg tablet TAKE 1 TABLET BY MOUTH EVERY DAY 02/13 completed Not Available Not Available Not Available cyclobenzap rine 10 mg tablet TAKE [...] completed Not Available Not Available Not Available naltrexone 50 mg tablet Take 1 tablet every day by oral route as directed for 30 days. 2024 active Not Available Not Available Not Avai lable famotidine 40 mg tablet 05/31 completed Not [...] Available Not Available losartan 100 mg tablet TAKE 0.5 TABLET BY MOUTH EVERY DAY active Not Available Not Available No t Available oxycodone 5 mg tablet TAKE 1 [...] Available Not Available Not Available Flucelvax Quad 7590-5823 (PF) 60 mcg (15 mcg x 4)/0.5 mL IM syringe 07/10 completed Not Available Not Available Not Available Vitals Date Recorded Body height Body mass index (BMI) Body weight Heart rate Oxygen saturation Oxygen saturation in Arterial blood by Pulse oximetry Systolic blood pressure Diastolic blood pressure Provider Name and Address Organization Details Last Updated DateTime 5 163.2 cm 33.7 kg/m2 77092.5 7 g 76 /min 95 % 95 % 122 mm[Hg] 80 mm[Hg] Liyah Price [facility] 5 13:28:58 Social History Question Answer Notes LastModified by Organizat ion Details LastModified Time Tobacco Smoking Status Former Smoker Joseline whyte [facility] 05/01/2018 10:50:32 What Was The Date Of Your Most Recent Tobacco Screening? 02/13/2025 [email or web address] Information not available 02/13/2025 How Many Years Have You Smoked Tobacco? 15 [email or web address] Information not available 05/01/2018 Sex: Unknown Functional Status Question Answer Note LastModified by Organization D etails LastModified Time Do you or have you ever used any other forms of tobacco or nicotine? No [email or web address] Information not available 12/22/2022 Mental Status None recorded. Family History Nothing Reported. Medical History No medical history recorded. Gynecological HistoryNo gynecological history recorded. Obstetrics History GPAL:G 0 P 0 0 0 0 Immunizations Vaccine Type Date Status Note Provider Nam e and Address Organization Details Recorded Time COVID-19, mRNA, LNP-S, PF, 30 mcg/0.3 mL dose 04/01/2021 completed Not Available [facility] 3 10:23:01 COVID-19, mRNA, LNP-S, PF, 30 mcg/0.3 mL dose 01/14/2021 completed Not Available [facility] 3 10:23:01 Past Encounters Encounter ID Performer Location Encounter Start Date Encounter Closed Date Diagnosis/Indication Diagnosis SNOMED-CT Code Diagnosis ICD10 Code Diagnosis Note [id number] DO [facility] [address],[place] [address] 02/13/2025 13:21:49 02/13/2025 16:09:00 Active or passive immunization 586990433 Z23 advised Alcohol use disorder 685 7493307 F10.90 start on naltrexone Asthma 580236161 J45.30 stable per patient Essential hypertension 24746222 I10 BP excellent Sleep apnea 56978643 G47 .39 will repeat Anxiety 57116215 F41.1 stable Hyperkalemia 86406602 E8 7.5 Hyperglycemia 89729091 R 73.9 Health Concerns Section Related Observation LastModified by Organization Detai ls LastModified Time None Recorded Concern Status LastModified by Organization Details LastModified Time None Recorded Payers Encounter Date Sequence Insurance Name Policy Number Policy Mendez Covered Member ID Mendez Member ID Guarantor Name 02/13/2025 1 [facility] Rhea Caballero [id number] Rhea Caballero Notes Date Note Type Note Provider Name and Address Organization Details Recorded Time 5 text/html f/u appt multiple issues the patient is seeing ortho for bilateral hand painthe patient is seeing ortho for her L knee pain as wellcurrently wearing brace, has end stage arthritis , not bothering hermild medial joint line pain but otherwise normal the patient has occasional lightheadedness/dizzine ss due to hypotensive issuesthe patient reports that she has a f/u with cardiology next week, will discuss meds with them since they are the prescriber the patient is still drinking, notes its an everyday thing, did discuss it last time she was seen, was going to work on cutting it out without interventionwould like to start on naltrexone, will send in script for patient to usehas worked before for patient the patient is losing weight, will work on the drinking which will help with the apnea, hasn't started using a CPAP, never followed up with sleep medicinerecommended repeat sleep study later to see if her scores improve she also notes that she was drinking the night of her sleep study HTN: today in the office the patient BP is 122/8 the patient is doing well on the BP medication with no side effects and no adjustment of their medications needed today at the appointment well-controlled on medication denies chest pain, sob, ankle swelling, orthopnea, palpitations EUGENE CORRIGAN [address], [place], [address], [facility] 02/13/2025 14:04:08 OBGyn Episode No OBEpisode recorded.
[2025-02-13 18:04] LABS: MANUAL DIFF FLAG NO
[2025-02-13 18:25] LABS: Estimated Average Glucose 111 mg/dL; Hemoglobin A1c % 5.5 % (<6.0)
[2025-02-13 18:33] LABS: Basophils Percent Auto 0.6 % (0-2); Eosinophils Absolute Auto 0.2 X10*3/uL (0.0-0.4); Eosinophils Percent Auto 2.5 % (0-4); Hematocrit 38.1 % (37.0-47.0); Hemoglobin 12.2 g/dl (12.0-16.0); Imm Gran Abs Auto 0.02 X10*3/uL (0.00-0.03); Imm Gran Pct Auto 0.3 % (0.0-0.4); Lymphocytes Absolute Auto 1.8 X10*3/uL (1.2-4.9); Lymphocytes Percent Auto 26.4 % (20-40); Mean Corpuscular Hemoglobin 28.4 pg (27.0-33.0); Mean Corpuscular Volume 88.6 fL (80.0-98.0); Mean Platelet Volume 10.5 fL (9.4-12.3); Monocytes Absolute Auto 0.6 X10*3/uL (0.1-1.2); Monocytes Percent Auto 9.4 % (2-11); Neutrophils Absolute Auto 4.1 x10*3/uL (2.0-8.3); Neutrophils Percent Auto 60.8 % (45-73); Platelet Count 273 X10*3/uL (160-400); Red Cell Distribution Width 13.5 % (11.0-16.0); White Blood Count 6.8 X10*3/uL (4.8-10.8)
[2025-02-13 18:38] LABS: Alanine Aminotransferase 28 U/L (0-31); Albumin Level 4.6 g/dL (3.5-5.0); Alkaline Phosphatase 56 U/L (39-117); Anion Gap 12 (12-20); Aspartate Amino Transferase 27 U/L (5-31); Bilirubin Total 0.4 mg/dL (0.0-1.0); Blood Urea Nitrogen 22 mg/dL (9-16); Calcium 9.7 mg/dL (8.4-10.2); Carbon Dioxide 25 mmol/L (22-29); Chloride 107 mmol/L (96-108); Estimated Glomerular Filt Rate > 60; Glucose Random 86 mg/dL (60-115); Potassium 3.7 mmol/L (3.3-5.1); Sodium 140 mmol/L (135-145); Total Protein 7.3 g/dL (6.5-8.0)
== END 2025-02-13 14:07 | disposition home or self-care (01) ==
LOC: HO.MANLDS 14:06
PROVIDERS: Visit Provider Physician Assistant
DX: I10 Essential (primary) hypertension (principal); E87.5 Hyperkalemia; R73.9 Hyperglycemia, unspecified
CPT/HCPCS: 36415; 80053; 83036; 85025

== ENCOUNTER 2025-03-19 10:42 | Outpatient (AMB) | payer OTHER, SELFPAY ==
--- NOTE | 2025-03-19 10:51 | MHC.OFFVIS ---
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 She is doing well with physician gynecologist concerns: history of stable fibroid. Currently not sexually active. Attempting to eat a healthy diet with calcium and vitamin D and stays active with exercise-walks. Last pap smear; 2023, negative. Last mammogram; 2024. Colonoscopy is UTD. Denies any family history of breast, ovarian or colon cancer. [facility] Medical History Fibroid Acid reflux High blood pressure Surgical History History of bunionectomy Hx of tonsillectomy Hx of bilateral breast reduction surgery Family History Mother Bladder cancer Social History Alcohol intake: current Alcohol intake frequency: a few times a week Patient : No Female Reproductive History Menstrual Age of Menarche: 11 control method: none Total pregnancies: 4 Ab induced: 4 Date of last pap smear: 11/21/23 (negative pap smear,negative hpv ) History of abnormal pap smear: No Date of Mammogram: 11/13/24 (bi rad 2) Review of Systems Const All systems reviewed & are unremarkable except as noted in HPI and below Reports as per HPI Eyes Reports no additional complaints ENT Reports no additional complaints Card Reports no additional complaints Resp Reports no additional complaints GI Reports as per HPI and Reports no additional complaints Reports as per HPI Musc Reports no additional complaints Skin/Breast Reports as per HPI Neuro Reports no additional complaints Psych Reports no additional complaints Endo Reports no additional complaints Timym/Lymph Reports no additional complaints Aller/Immun Reports no additional complaints Physical Exam Vital Signs: Last Vital Signs BP 132/70 03/19/25 10:57 BMI result Body Mass Index 32.3 Const General: cooperative, healthy appearing, no acute distress, well developed and alert Orientation/consciousness: patient oriented x3 HEENT Head: Yes normal to inspection Eyes General: appearance normal, both eyes and all related structures Neck Neck: Yes normal visual inspection Thyroid: Thyroid normal Chest Other: 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 Chest palpation & inspection: normal inspection of the chest and other (no puckering, dimpling, peau de orange, retraction, discharge, masses) Breast/axilla inspection: normal inspection of the breasts Breast/axilla palpation: normal palpation of the breasts Resp Effort & Inspection: normal respiratory effort GI Inspection: Yes normal to inspection Palpation (GI): Soft to palpation Rectal Exam - Female: deferred General: Yes bladder normal to palpation External Female Exam: normal external appearance and normal appearance of the urethra Speculum Exam - Vagina: normal appearance of the vagina, normal palpation and normal vaginal discharge Speculum Exam - Cervix: normal appearance of the cervix and normal palpation Bimanual exam- vagina & uterus: normal bimanual exam, normal palpation, uterine size normal, bladder normal to palpation, normal palpation and non-tender Bimanual Exam- Adnexa, other: no masses Skin General skin exam: no rashes or lesions noted Rashes: no rashes Neuro General: patient oriented x3 Cognition (Neuro): normal cognition Extrem General: Yes normal to inspection Psych Attitude: cooperative Thought process: Normal thought process present Assessment & Plan Assessment & Plan (1) Encounter for well woman exam with routine gynecological exam: Code(s): Z01.419 - Encounter for gynecological examination (general) (routine) without abnormal findings Category: Medical Plan Discussed: Current recommendations for pap smears per ASCCP guidelines. Breast awareness, periodic self breast exams and yearly mammogram. Maintain a healthy lifestyle, well balanced diet including Calcium 1,200 mg and Vitamin D 600 IU daily, and routine exercise. Contact the office with any postmenopausal bleeding. Patient verbalizes understanding and agrees to the plan of care. She was given opportunity to ask questions and all questions were answered to the best of my ability. RTO in 1 year for annual physician gynecologist exam. This note is constructed using voice recognition software. While every effort has been made to ensure accuracy, respite worker errors may have been included. Coding Level of Care Code Est Pt Prev Care 40-64y(50579) Diagnoses Encounter for well woman exam with routine gynecological exam Z01.419
[2025-03-19 10:57] VITALS: BP 132/70; BMI 32.3
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
== END 2025-03-19 11:35 | disposition home or self-care (01) ==
LOC: HO.HWS 10:43
PROVIDERS: PCP Internal Medicine; Visit Provider Advanced Practice Midwife
DX: Z01.419 Encounter for gynecological examination (general) (routine) without abnormal findings (principal)
CPT/HCPCS: 99396; 99459

== ENCOUNTER 2025-04-17 10:20 | Emergency (ER) | payer OTHER, SELFPAY ==
[2025-04-17] VITALS (8 sets, daily range): BP systolic 161–200; BP diastolic 74–110; PULSE 62–71; RESP 16–18; TEMP 36.7–36.8; O2SAT 98–99; BMI 30.8
--- NOTE | ~2025-04-17 | CT_ITS ---
EXAMINATION: CT HEAD WITHOUT CONTRAST CLINICAL INFORMATION: severe headache COMPARISON: None available. TECHNIQUE: Contiguous axial imaging was performed from the skull base to vertex without intravenous administration of contrast. This CT examination was performed using dose optimization techniques as appropriate, variously including the following: *Automated exposure control *Adjustment of mA and/or kV according to patient size (this includes techniques or standardized protocols for targeted exams where dose is matched to indication/reason for exam; i.e. extremities or head) *Use of iterative reconstruction technique DLP: 635.91 mGy-cm FINDINGS: No acute intracranial hemorrhage, mass effect, midline shift, hydrocephalus or herniation. Cali-white matter differentiation is normal. Posterior cranial fossa contents demonstrated no acute hemorrhage or mass effect. Sellar/suprasellar region demonstrated no gross masses. Normal position of the cerebellar tonsils. No acute fracture in the bony calvarium. No air-fluid levels in the included paranasal sinuses. No gross masses in the intraconal or extraconal compartments of the orbits. Tympanic cavities and mastoid air cells are aerated. CT/CT head/brain wo IV con IMPRESSION: No acute brain abnormality by CT Electronically signed by: Reginald Maharaj MD 04/17/2025 11:57 AM EDT
--- NOTE | ~2025-04-17 | CT_ITS ---
EXAMINATION: CT ABDOMEN AND PELVIS WITHOUT CONTRAST CLINICAL INFORMATION: new onset constipation x 1 week no hx of this n/v COMPARISON: Abdomen ultrasound on March 09, 2023 TECHNIQUE: Multidetector volumetric imaging was performed from the superior aspect of the liver through the pubic symphysis. Sagittal and coronal reformatted images were obtained on the technologist's workstation. This CT examination was performed using dose optimization techniques as appropriate, variously including the following: *Automated exposure control *Adjustment of mA and/or kV according to patient size (this includes techniques or standardized protocols for targeted exams where dose is matched to indication/reason for exam; i.e. extremities or head) *Use of iterative reconstruction technique FINDINGS: LUNG BASES: The visualized lung bases are unremarkable. LIVER, GALLBLADDER, AND BILIARY TREE: Normal attenuation of the liver parenchyma. Focal subcentimeter hypodensity in the posterior right hepatic lobe of (14:22) is too small to characterize. The gallbladder is unremarkable with no evidence of radiopaque gallstones, gallbladder wall thickening, or obvious pericholecystic inflammatory changes. No evidence of biliary ductal dilatation. PANCREAS: Unremarkable. SPLEEN: No splenomegaly. Subcentimeter hypodensity is too small to characterize (14:20). ADRENAL GLANDS: No nodules. KIDNEYS AND URETERS: The kidneys are normal in size, shape, and attenuation. No hydronephrosis, hydroureter, or calculi seen. No perinephric stranding. BLADDER: Partially distended. No intravesical stones. GASTROINTESTINAL TRACT: No bowel distention. Probable appendix has normal appearance. Mild stool content within the colonic loops and the rectum. Scattered diverticula along the distal descending and sigmoid colons. ABDOMINAL WALL: Small fat-containing umbilical hernia. LYMPH NODES: No lymphadenopathy. VASCULAR: Scattered vascular calcifications. No abdominal aortic aneurysm. PELVIC VISCERA: Coarse calcifications and lobulated contour of the uterus, likely due to multiple uterine leiomyomas. OSSEOUS STRUCTURES: No acute abnormalities. CT/CT abdomen pelvis wo IV con IMPRESSION: 1. No acute findings in the abdomen/pelvis. 2. No CT evidence of bowel obstruction. Electronically signed by: David Abel MD 04/17/2025 12:17 PM EDT
--- NOTE | 2025-04-17 10:53 | ECG_ITS ---
Test Reason : DIZZINESS Blood Pressure : */* mmHG Vent. Rate : 67 BPM Atrial Rate : 67 BPM P-R Int : 132 ms QRS Dur : 94 ms QT Int : 392 ms P-R-T Axes : 58 38 41 degrees QTcB Int : 414 ms Normal sinus rhythm Normal ECG No previous ECGs available Referred By: Kavita Grant Electronically Signed By: Shai Gracia
--- NOTE | 2025-04-17 11:00 | ED.GENADULT ---
HPI - General Adult General Chief complaint: General Medical Stated complaint: DIZZY,N/V,CONSTIPATION X1W PER EMS Time Seen by Provider: 04/17/25 10:34 Source: patient and EMS Mode of arrival: EMS Limitations: no limitations History of Present Illness ED Provider: JOHN MCNALLY narrative: 59 yo female with PMH of HTN did not take her meds this AM, alcohol abuse on naltrexone - took it last Tuesday. She drank that day and became very nauseated and ill. She notes she did okay next day and was able to eat. Since then she has had hard stools, bloating and intermittent nausea. She is passing gas she has no prior abdominal surgeries. She tried to use OTC meds no relief. This AM she tried an enema and after 2nd attempt she tried to get up but noted frontal headache that is severe, n/v, dizziness. She states she has migraines but this pain is the back of her head. She is not on thinners and she has no feveres. MD complaint: headache, dizziness, constipation Onset (ago): hour(s) (8am today (constipation x 1 week)) Location: head Radiation: non-radiation Severity: moderate Quality: aching and constant Pain Consistency: constant Relieving factors: none Exacerbating factors: movement Associated symptoms: loss of appetite, nausea/vomiting and other (constipation) Treatments prior to arrival: none Related Data Home Medications ?Medication ?Instructions ?Recorded ?Confirmed lactobacillus combination no.9 4 4,000 mmu cells PO DAILY 11/17/23 billion cell capsule (Adult 50 Plus Probiotic) omeprazole 40 mg capsule,delayed 40 mg PO DAILY 11/17/23 release losartan 25 mg tablet 25 mg PO DAILY 05/29/24 carvedilol 6.25 mg tablet 6.25 mg PO BID 03/19/25 hydrochlorothiazide 25 mg tablet 25 mg PO DAILY 03/19/25 Previous Rx's ?Medication ?Instructions ?Recorded ondansetron 4 mg disintegrating 4 mg PO Q8H PRN nausea and 04/17/25 tablet vomiting #20 tabs Allergies Allergy/AdvReac Type Severity Reaction Status Date / Time No Known Allergies Allergy Verified 04/17/25 10:37 Review of Systems Review of Systems: Constitutional : No Fever, No Chills, No Fatigue ENT/Mouth : No sore throat, No Rhinorrhea Eyes: No Eye Pain, No Swelling, No Redness Cardiovascular : No Chest Pain, No SOB, No Dyspnea on Exertion Respiratory : No Cough, No Sputum Gastrointestinal : pos Nausea, pos Vomiting, No Diarrhea, No abdominal Pain, pos constipation Genitourinary : No Dysuria, No Urinary Frequency, No Hematuria, Musculoskeletal : No joint pain, No Myalgias, No Joint Swelling Skin : No Skin Lesions, No rash Neuro : No Weakness, No Numbness, No Dizziness, positive Headache All other systems reviewed and are negative PMFSH Past Medical History Attestation statement: The following information was validated with the patient. Source: old records reviewed Medical History Fibroid Acid reflux High blood pressure Surgical History History of bunionectomy Hx of tonsillectomy Hx of bilateral breast reduction surgery Family History Family History Mother Bladder cancer Social History Social History Alcohol intake: current Alcohol intake frequency: a few times a week Smoked in Last 30 Days: No Use of substances other than those prescribed or required for medical reasons: No Advance Directives: No Advance Directives Information Provided: Yes Do you have a plan to hurt others: No Plan Patient : No Physical Exam ED Vital Signs: Vital Signs - 24 hr 04/17/25 10:33 04/17/25 12:16 04/17/25 13:35 Temperature 98.0 F 98.0 F Pulse Rate 71 68 Respiratory Rate 16 18 Blood Pressure 187/104 H 190/98 H 186/83 H Pulse Oximetry 99 99 Oxygen Delivery Method Room Air Room Air 04/17/25 13:35 04/17/25 13:36 04/17/25 14:18 Temperature Pulse Rate 70 70 65 Respiratory Rate 18 18 Blood Pressure 186/83 H 186/83 H 170/77 H Pulse Oximetry 98 99 Oxygen Delivery Method Room Air Room Air 04/17/25 14:30 04/17/25 14:45 04/17/25 16:02 Temperature 98.3 F 98.3 F Pulse Rate 62 70 70 Respiratory Rate 18 18 18 Blood Pressure 161/74 H 169/80 H 169/80 H Pulse Oximetry 98 99 99 Oxygen Delivery Method Room Air Room Air Room Air BMI result Body Mass Index 30.8 Appearance: Alert. Oriented X3. No acute distress. Eyes: Pupils equal, round and reactive to light. no nystagmus ENT: Pharynx normal. non traumatic Neck: Normal inspection. Neck supple. CVS: Normal heart rate and rhythm. Pulses normal. Respiratory: No respiratory distress. Breath sounds normal. Abdomen: Soft and bloated with mild diffuse ttp Skin: Skin warm and dry. Normal skin color. Extremities: No lower extremity edema. Neuro: Oriented X 3. No motor deficit. No sensory deficit. CN2-12 intact. steady gait no ataxia NIH Stroke Scale Internal: Initial- Upon Arrival Level of Consciousness: Alert Level of Consciousness Questions: Answers both questions correctly Level of Consciousness Commands: Performs both tasks correctly Best Gaze: Normal Visual: No visual loss Facial Palsy: Normal Motor Arm (Right): No drift Motor Arm (Left): No drift Motor Leg (Right): No drift Motor Leg (Left): No drift Limb Ataxia: Absent Sensory: Normal Best Language: No aphasia Dysarthia: Normal Extinction and Inattention: No abnormality Score: 0 Medications Administered Discontinued Medications Generic Name Dose Route Start Last Admin Trade Name Freq PRN Reason Stop Dose Admin Carvedilol 6.25 mg 04/17/25 12:52 04/17/25 13:35 Carvedilol 6.25 Mg Tablet PO 04/17/25 12:53 6.25 mg ONCE ONE Administration Protocol Diphenhydramine HCl 25 mg 04/17/25 10:53 04/17/25 11:28 Diphenhydramine Hcl 50 Mg/Ml Vial IVPUSH 04/17/25 10:54 25 mg ONCE ONE Administration Lactated Ringer's 1,000 mls @ 999 mls/hr 04/17/25 10:53 04/17/25 14:28 Lr IV 04/17/25 11:53 Infused .Q1H1M ONE Infusion Ketorolac Tromethamine 15 mg 04/17/25 14:32 04/17/25 14:42 Ketorolac Tromethamine 15 Mg/Ml Vial IVPUSH 04/17/25 14:33 15 mg ONCE ONE Administration Losartan Potassium 50 mg 04/17/25 12:52 04/17/25 13:35 Losartan Potassium 50 Mg Tablet PO 04/17/25 12:53 50 mg ONCE ONE Administration Protocol Prochlorperazine Edisylate 10 mg 04/17/25 10:53 04/17/25 11:28 Prochlorperazine Edisylate 10 Mg/2 Ml Vial IVPUSH 04/17/25 10:54 10 mg ONCE ONE Administration Medical Decision Making Medical Decision Making [facility] Narrative: 59 yo female with PMH of HTN, alcohol use disorder sick with constipation x 1 week after n/v post ETOH use on naltrexone. She was using enema this AM then developed severe headache and dizziness at 8am. She has no focal deficits and she has normal gait - at this time IV meds for nausea, fluids, CT head for ICH/SAH, CT abd for obstructive pathology. she has NIH 0 no ataxia doubt posterior stroke Differential Diagnosis Differential Diagnoses: The differential diagnosis associated with the presentation includes SAH, constipation, lyte abnormality, dehydration Admission/Observation Consideration of admission/observation: Escalation of care including admission/observation considered work up reassuring tolerating PO no neuro findings stable for DC CT head negative within 6 hours of symptoms Lab Data [facility] Lab Attestation statement: I reviewed the patient's lab results. 04/17/25 12:01 04/17/25 12:01 Labs: Lab Results 04/17/25 Range/Units 12:01 WBC 7.3 (4.8-10.8) X10*3/uL RBC 4.41 (4.20-5.50) X10*6/uL Hgb 12.7 (12.0-16.0) g/dl Hct 37.6 (37.0-47.0) % MCV 85.3 (80.0-98.0) fL MCH 28.8 (27.0-33.0) pg MCHC 33.8 (31.0-35.0) g/dl RDW 12.5 (11.0-16.0) % Plt Count 248 (160-400) X10*3/uL MPV 9.4 (9.4-12.3) fL Immature Gran % (Auto) 0.4 (0.0-0.4) % Neut % (Auto) 81.8 H (45-73) % Lymph % (Auto) 12.1 L (20-40) % Cole % (Auto) 4.6 (2-11) % Eos % (Auto) 0.7 (0-4) % Baso % (Auto) 0.4 (0-2) % Lymph # (Auto) 0.9 L (1.2-4.9) X10*3/uL Cole # (Auto) 0.3 (0.1-1.2) X10*3/uL Eos # (Auto) 0.1 (0.0-0.4) X10*3/uL Baso # (Auto) 0.0 (0.0-0.2) X10*3/uL Abs Immat Gran (auto) 0.03 (0.00-0.03) X10*3/uL Absolute Neuts (auto) 5.9 (2.0-8.3) x10*3/uL Absolute Nucleated RBC 0.000 (0.0-0.012) X10*3/uL Nucleated RBC % (auto) 0.0 (0.0-0.2) /100WBC Sodium 138 (135-145) mmol/L Potassium 3.7 (3.3-5.1) mmol/L Chloride 102 (96-108) mmol/L Carbon Dioxide 26 (22-29) mmol/L Anion Gap 14 (12-20) BUN 12 (9-16) mg/dL Creatinine 0.75 (0.5-1.4) mg/dL Estim Creat Clear Calc 86.4 Estimated GFR > 60 Random Glucose 119 H (60-115) mg/dL Calcium 9.3 (8.4-10.2) mg/dL Magnesium 2.3 (1.6-2.6) mg/dL Total Bilirubin 0.6 (0.0-1.0) mg/dL Direct Bilirubin 0.2 (0.0-0.5) mg/dL AST 20 (5-31) U/L ALT 27 (0-31) U/L Alkaline Phosphatase 54 (39-117) U/L Troponin I High Sens < 2.7 (<3.5-17.0) ng/L Total Protein 7.1 (6.5-8.0) g/dL Albumin 4.6 (3.5-5.0) g/dL Ethyl Alcohol < 10 mg/dL Independent Interpretation I performed an independent interpretation of an: EKG and CT Scan (normal head and abdomen) Interpretation: Rate: 67 Rhythm: NSR Lind[place]: normal Normal P waves. Normal MIKE. Normal QRS complex. ST T wave : inverted t wave V1, no XIOMY qTC: 414 prior studies: no acute ischemia The study has been interpreted contemporaneously by me. . Radiology Impression Discussion of test interpretation with radiology: I have reviewed the radiologist's reading. External Record Review External record reviewed: Outpatient record Prescription Management I considered prescription management with: Other Discharge Plan Discharge Clinical Impression: Constipation Qualifiers: Constipation type: unspecified constipation type Qualified Code(s): K59.00 - Constipation, unspecified Migraine Qualifiers: Migraine type: unspecified Status migrainosus presence: without status migrainosus Intractability: not intractable Qualified Code(s): G43.909 - Migraine, unspecified, not intractable, without status migrainosus Patient Disposition: Home, Self-Care Instructions: Constipation (ED), Migraine Headache (ED), Dizziness (ED) Additional Instructions: your labs and head CT are normal CT scan of abdomen is normal mild stool burden at this time would just stay hydrated and not take enemas it will happen take colace 100mg twice a day and senna 8.6mg at night return for fevers vomiting confusion severe pain or any other concerns. rest and stay hydrated Prescriptions: New ondansetron 4 mg tablet,disintegrating 4 mg PO Q8H PRN (Reason: nausea and vomiting) Qty: 20 0RF No Action omeprazole 40 mg capsule,delayed release(DR/EC) 40 mg PO DAILY Adult 50 Plus Probiotic 4 billion cell capsule 4,000 mmu cells PO DAILY Rx Instructions: administer with a meal losartan 25 mg tablet 25 mg PO DAILY carvedilol 6.25 mg tablet 6.25 mg PO BID hydrochlorothiazide 25 mg tablet 25 mg PO DAILY Stand Alone Forms: Work/School Release Interventions: ED Discharge Assessment Last Done: 04/17/25 16:02 Discharge Date/Time: 04/17/25 16:03 Print Language: German
[2025-04-17] MEDS: Lactated Ringers 1,000 ML 999 ML IV (11:28)
--- OUTSIDE RECORDS SUMMARY | 2025-04-17 11:55 | XMS_ITS | Encounter Summary ---
Author Organization [facility] Address [address] [place] [id number] Phone Care Team Providers Care Archivist Name Role Phone Wallace Keyes DO Primary Care Provider [phone] Wallace Keyes DO Unavailable Debbie Wilson HYDROPULPER Unavailable Trey Cruz Unavailable Hina Jackson HYDROPULPER Unavailable Silvestre Weems MD Unavailable Monica Hernandez MD Unavailable Dulce Maria Guerra HYDROPULPER Unavailable Mookie Mary MD Unavailable Cassy Robert PA-C Unavailable Becca Maciel MD Unavailable Jocelin Del Castillo MD Unavailable Vargas Holt MD Unavailable [phone] Susan Bennett HYDROPULPER Unavailable Milena Estrella MD Unavailable Wallace Keyes DO Unavailable Janell Dumont Primary Care Provider Wallace Keyes DO Primary Care Provider [phone] Wallace Keyes DO Unavailable Encounter Details Date Type Department Care Team (Late st Contact Info) Description 07/14/2018 Ancillary Orders [facility], X-Ray - [facility] [address] [place] [address] Wallace Keyes DO [address] [facility] [place] [address] [place] [address] [email or web address] Abdominal pain, unspecified abdominal location Social History Tobacco Use Types Packs/Day Years Used Date Smoking Tobacco: Former Smokeless Tobacco: Never Comments:quit @ age 29 Alcohol Use Standard Drinks/Week Comments Yes 10 (1 standard drink = 0.6 oz pu re alcohol) Comments Unknown Sex and Gender Information Value Date Recorded Sex Assigned at Female 03/24/2018 7:37 AM EDT Legal Sex Female 9:41 PM EDT Gender Identity Female 03/24/2018 7:37 AM EDT Sexual Orientation Not on file documented as of this encounter Plan of Treatment Not on file documented as of this encounter Results * XR ABDOMEN 1 VIEW (07/14/2018 11:27 AM EST) Anatomical Region Laterality Modality Abdomen Radiographic Melisa ging 07/14/2018 11:4 5 AM EST Impressions 07/14/2018 11:46 AM EST Small pelvic calcifications consistent with phleboliths without opaque intrarenal or proximal ureteral calculi apparent. No acute bony abnormality or gross bowel loop distention on supine imaging. POS - [id number] Narrative 07/14/2018 11:46 AM EST COMPARISON: None FINDINGS: AP supine views only were obtained as per request. Small pelvic calcifications most likely reflect phleboliths. No opaque intrarenal or proximal ureteral calculi are demonstrated. Visualized intestinal gas pattern is unremarkable. Visualized skeletal structures are intact. Procedure Note Pedro Pablo Salcido MD - 07/14/2018 COMPARISON: None FINDINGS: AP supine views only were obtained as per request. Small pelviccalcifications most likely reflect phleboliths. No opaque intrarenal orproximal ureteral calculi are demonstrated. Visualized intestinal gaspattern is unremarkable. Visualized skeletal structures are intact. IMPRESSION: Small pelvic calcifications consistent with phleboliths without opaqueintrarenal or proximal ureteral calculi apparent. No acute bonyabnormality or gross bowel loop distention on supine imaging. POS - [id number] us Wallace Keyes DO IMG XR ABDOMEN Final Result documented in this encounter Visit Diagnoses Diagnosis Abdominal pain, unspecified abdominal location Abdominal pain, unspecified abdominal location documented in this encounter Additional Health Concerns Infection Onset Date Last Indicated Resolved Time MRSA Comment:Infection Loaded by the Load Infection Utility 08/31/2016 08/31/2016 10/20/2022 1:[address] CoV-Risk 03/12/2020 03/12/2020 03/26/2020 1:24 AM EDT documented as of this encounter Care Teams Archivist Relationship Specialty Start Date End Date Wallace Keyes DO [email or web address] PCP - General 06/21/17 01/16/21 Janell Dumont PA [address] [address] PCP - General Unknown Provider Specialty 01/17/21 02/17/22 Wallace Keyes DO [email or web address] PCP - General Internal Medicine 02/18/22 Wallace Keyes DO [address] [place] [address] [email or web address] Historical LMR Provider 06/21/17 01/16/21 Debbie Wilson NP [address] [place] [address] Historical LMR Provider 06/21/17 Trey Cruz PA [address] [place] [address] Historical LMR Provider 06/21/17 Hina Jackson NP [address] [place] [address] Historical LMR Provider 06/21/17 Silvestre Weems MD [address] [place] [address] [email or web address] Historical LMR Provider 06/21/17 01/16/21 Monica Hernandez MD [address] [place] [address] Historical LMR Provider 06/21/17 Dulce Maria Guerra NP [address] [place] [address] [email or web address] Historical LMR Provider 06/21/17 Mookie Mary MD [address] [place] [address] [email or web address] Historical LMR Provider 06/21/17 01/16/21 Cassy Robert PA-C [address] [place] [address] Orthopedics & Sports Medicine, [place] [address] Historical LMR Provider 06/21/17 1 Becca Maciel MD [address] [place] [address] Orthopedics & Sports [facility], [place] [address] Historical LMR Provider 06/21/1701/16 Jocelin Del Castillo MD [address] [place] [address] Orthopedics Sports [facility], [place] [address] Historical LMR Provider 06/21/17 01/16/21 Vargas Holt MD [address] [place] [address] Historical LMR Provider 06/21/17 Susan Bennett NP [address] [place] [address] Historical LMR Provider 06/21/17 Milena Estrella MD [address] [place] [address] [email or web address] Historical LMR Provider 06/21/17 01/16/21 Wallace Keyes DO [address] [place] [address] [email or web address] Insurance Assigned Provider 01/09/20 01/16/21 Wallace Keyes DO [address] [place] [address] [email or web address] Insurance Assigned Provider 12/10/23 documented as of this encounter Additional Source Comments The information contained in this document represents components of the legal health record. It is not the complete legal health record.[facility]
[2025-04-17 12:06] LABS: MANUAL DIFF FLAG NO
[2025-04-17 12:08] LABS: Hematocrit 37.6 % (37.0-47.0); Hemoglobin 12.7 g/dl (12.0-16.0); Imm Gran Abs Auto 0.03 X10*3/uL (0.00-0.03); Imm Gran Pct Auto 0.4 % (0.0-0.4); Lymphocytes Absolute Auto 0.9 X10*3/uL (1.2-4.9); Mean Corpuscular HGB Conc 33.8 g/dl (31.0-35.0); Mean Corpuscular Hemoglobin 28.8 pg (27.0-33.0); Mean Corpuscular Volume 85.3 fL (80.0-98.0); NRBC Abs Auto 0.000 X10*3/uL (0.0-0.012); NRBC Pct Auto 0.0 /100WBC (0.0-0.2); Platelet Count 248 X10*3/uL (160-400); Red Blood Count 4.41 X10*6/uL (4.20-5.50); White Blood Count 7.3 X10*3/uL (4.8-10.8)
[2025-04-17 12:35] LABS: Troponin-I High Sensitivity < 2.7 ng/L (<3.5-17.0)
[2025-04-17 12:36] LABS: Alanine Aminotransferase 27 U/L (0-31); Albumin Level 4.6 g/dL (3.5-5.0); Alkaline Phosphatase 54 U/L (39-117); Anion Gap 14 (12-20); Aspartate Amino Transferase 20 U/L (5-31); Blood Urea Nitrogen 12 mg/dL (9-16); Calcium 9.3 mg/dL (8.4-10.2); Carbon Dioxide 26 mmol/L (22-29); Chloride 102 mmol/L (96-108); Creatinine Clr Calc Pharmacy 86.4; Estimated Glomerular Filt Rate > 60; Magnesium 2.3 mg/dL (1.6-2.6); Potassium 3.7 mmol/L (3.3-5.1); Sodium 138 mmol/L (135-145); Total Protein 7.1 g/dL (6.5-8.0)
== END 2025-04-17 16:03 | disposition home or self-care (01) ==
PROVIDERS: Emergency Provider Emergency Medicine; PCP Internal Medicine
DX: K59.00 Constipation, unspecified (principal); R42 Dizziness and giddiness; G43.909 Migraine, unspecified, not intractable, without status migrainosus; R11.2 Nausea with vomiting, unspecified; R10.2 Pelvic and perineal pain; Z51.81 Encounter for therapeutic drug level monitoring; Z79.899 Other long term (current) drug therapy
CPT/HCPCS: 36415; 70450; 74176; 80048; 80076; 80307; 83735; 84484; 85025; 93005; 96361; 96374; 96375; 99285; J0737; J1200; J1885; J7120

== ENCOUNTER → 2025-04-17 10:53 | Outpatient (BNV) | payer OTHER, SELFPAY | PROVIDERS: Emergency Provider Emergency Medicine; PCP Internal Medicine; Visit Provider Internal Medicine Cardiovascular Disease | DX: R42 Dizziness and giddiness (principal) | CPT/HCPCS: 93010 ==

== ENCOUNTER → 2025-04-17 10:56 | Outpatient (BNV) | payer OTHER, SELFPAY | PROVIDERS: Emergency Provider Emergency Medicine; PCP Internal Medicine; Visit Provider Radiology Diagnostic Radiology | DX: K59.00 Constipation, unspecified (principal); R51.9 Headache, unspecified | CPT/HCPCS: 70450; 74176 ==

== ENCOUNTER 2025-06-26 12:50 | Outpatient (REF) | payer OTHER, SELFPAY ==
--- NOTE | ~2025-06-26 | XR_ITS ---
EXAMINATION: XR LUMBOSACRAL SPINE CLINICAL INFORMATION: RADICULOPATHY COMPARISON: Correlation MRI 01/20/2021 TECHNIQUE: Three views of the lumbosacral spine. FINDINGS: There is transitional anatomy. For the purpose of this study, the lowermost completely developed intervertebral disc spaces is designated as L5-S1. Mild retrolisthesis of L2 and L4, L4 on L5. Vertebral body heights are maintained. No evidence of acute fracture. Multilevel moderate disc degenerative changes, with disc height loss, endplate osteophytes. Multilevel facet degeneration. SI joints are symmetric. No abnormal soft tissue calcification. XR/XR lumbar spine 2-3V IMPRESSION: There is transitional anatomy. For the purpose of this report, the lowermost completely developed intervertebral disc spaces dedicated L5-S1. Recommend close radiographic and clinical correlation prior to any procedure. No radiographic evidence of acute fracture. Multilevel moderate disc degeneration. Multilevel facet degeneration. Electronically signed by: Mahad Barboza MD 06/26/2025 01:27 PM EDT
--- OUTSIDE RECORDS SUMMARY | 2025-06-26 17:49 | XMS_ITS | Continuity of Care Document ---
Author Organization [facility], [facility] Address [address] [place] [address] Assessment No assessment recorded. Plan of Treatment Reminders Order Date Submit Date Provider Last Modified By Organization Details Last Modified Time Details Appointments FOLLOW UP 15 2024 12:00P M EUGENE CORRIGAN Not available Not available Not available Lab None recorded. Referral dermatolo gist referral 2024 [facility] Debora Guerrero, [address] , [place], [address], 06/26/2025 12:49:47 Procedures None recorded. Surgeries None recorded. Imaging XR, lumbosacr al spine, 2 or 3 view 2024 [facility] Central Scheduling, [address] [place], [address], 06/26/2025 13:32:04 Medication Orders lorazepam 0.5 mg tablet 2024 025 [facility] [place], [address] [place], [address], 06/26/2025 12:12:07 Patient TargetsNo targets recorded. Patient InstructionsNo instructions recorded. Reason for Referral Administrative Coordinator Referral for P igmented skin lesion needs updated PCP referral Referring Physician: Laura Dumont, Internal Medicine, Encounter Date: 06/26/2025 Results Created Date Observation Date Name Description Value Unit Range Abnormal Flag Note LastModifiedBy Organization Detail LastModifiedTime 06/26/2006/26/2025 XR, lumbo sacra l spine , 2 or 3 view No observ ation record ed. [facility] (Medical Records) [address], [place], [address], 06/26/2025 16:52:58 Result Notes None recorded. Problems Name Problem SNOMED Code Status Onset Date Resolution Date Notes Provider Name and Address Organization Details Recorded Time Asthma 875952293 Active 2017 MAICOL Joselinedayday whyte [facility] Internal [facility] 8 14:38:22 Allergic rhinitis 26117089 [facility] Gastroeso phageal reflux disease 430740289 [facility] 14:38:44 Essential hypertens ion 06432386 Active 2017 Lab[facility] 8 14:39:36 Coma 773420137 Active 2017 age 2 years [facility] 14:39:56 Osteoarth ritis 235958557 Active 2017 [facility] 8 14:40:16 Impaired fasting glycemia 741220406 Active 2017 [facility] 8 14:40:21 Anxiety 80480903 [facility] 2017 [facility] 14:40:29 Spinal cord injury 12023442 Active 2017 lesion ? [place] [facility] 8 14:41:23 Migraine 86947814 Active 2017 [facility] 8 14:41:31 COVID-19 811984789 Active 2021 [facility] 2 10:00:08 Nausea 566209720 Active 2021 Wallace Keyes DO [address] [place], [address], [facility] 2 13:30:47 Cervical radiculop athy 81369518 Active 2021 EUGENE CORRIGAN [address] [place], [address], [facility] 2 14:49:19 Low back pain 390970267 Active 2021 EUGENE CORRIGAN [address] [place] [address], [address], [facility] 2 14:56:14 Atypical chest pain 483116393 Active 2022 EUGENE CORRIGAN [address] [place] [address], [address], [facility] 3 16:46:24 Prinzmeta l angina 03695952 Active 2022 EUGENE CORRIGAN [address] [place] [address], [address], [facility] 3 11:54:55 Heart murmur 05119818 Active 2022 EUGENE CORRIGAN [address] [place] [address], [address], [facility] 3 13:51:35 Tear of meniscus of knee 418753166 Active 2022 EUGENE CORRIGAN [address] [place] [address], [address], [facility] 3 14:03:13 Tear of lateral meniscus of knee 427326987 Active 2022 EUGENE CORRIGAN [address] [place] [address], [address], [facility] 3 08:43:07 Dizziness 273262640 Active 2022 EUGENE CORRIGAN [address] [place] [address], [address], [facility] 3 09:27:43 Abdominal pain 17754688 Active 2022 EUGENE CORRIGAN [address] [place] [address], [address], [facility] 3 09:28:26 Motion sickness 17937009 Active 2022 EUGENE CORRIGAN [address] [place] [address], [address], [facility] 3 09:34:16 Cough 21664282 Active 2022 EUGENE CORRIGAN [address] [place] [address], [address], [facility] 3 09:37:31 Acute bronchiti s 57236954 Active 2022 EUGENE CORRIGAN [address] [place] [address], [address], [facility] 3 16:51:23 Steatotic liver disease 478112848 Active 2022 EUGENE CORRIGAN [address] [place] [address], [address], [facility] 3 13:24:32 Tachycard ia 3534647 Active 2022 Wallace Keyes, DO [address] [place] [address], [address], [facility] 3 16:58:46 Hyperglyc emia 16620975 Active 2022 Wallace Keyes, DO [address] [place] [address], [address], [facility] 3 17:00:23 Palpitati ons 01334415 Active 2022 EUGENE CORRIGAN [address] [place] [address], [address], [facility] 3 16:01:49 Gluten sensitivi ty 055091538 Active 2022 EUGENE CORRIGAN [address] [place] [address], [address], [facility] 3 15:59:29 Pain of breast 86592681 Active 2022 EUGENE CORRIGAN [address] [place], [address], [facility] 3 12:38:41 Angina pectoris 510852417 Active 2023 EUGENE CORRIGAN [address] [place], [address], [facility] 4 11:21:49 Right upper quadrant pain 003559309 Active 2023 EUGENE CORRIGAN [address] [place], [address], [facility] 4 11:21:56 Edema of lower extremity 844701695 Active 2023 EUGENE CORRIGAN [address] [place] [address], [address], [facility] 4 10:33:29 Fatigue 96001918 Active 2023 EUGENE CORRIGAN [address] [place] [address], [address], [facility] 4 11:42:20 Sleep apnea 45511394 Active 2024 EUGENE CORRIGAN [address] [place] [address], [address], [facility] 5 14:27:37 Resistant hypertens chuy disorder 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 4109 Active 2024 EUGENE CORRIGAN [address] [place] [address], [address], [facility] 5 14:33:41 Alcohol use disorder Active 2024 EUGENE CORRIGAN [address] [place] [address], [address], [facility] 5 13:36:15 Hyperkale sadiq 83079475 Active 2024 EUGENE CORRIGAN [address] [place] [address], [address], [facility] 5 13:58:56 Nausea and vomiting 83944810 Active 2024 EUGENE CORRIGAN [address] [place], [address], [facility] 5 16:07:54 Pigmented skin lesion 813518167 Active 2024 EUGENE CORRIGAN [address] [place], [address], [facility] 5 12:06:09 Lumbar radiculop athy 709439644 Active 2024 EUGENE CORRIGAN [address] [place] [address], [address], [facility] 5 12:10:03 Problem Notes None recorded. Procedures Surgical History Date Name Laterality Status Provider Name and Address Organization Details Recorded Time 07/15/20 23 Colonoscopy completed Wallace Keyes DO [address] [place] [address], [address], [facility] 07/15/2023 17:03:39 Imaging Results None [...] Available Not Available naltrexone 50 mg tablet TAKE 1 TABLET BY MOUTH EVERY DAY DIRECTED active Not Available Not Available No t Available famotidine 40 mg tablet 05/31 completed [...] Not Available Not Available Not Available ondansetron 8 mg disintegrat ing tablet Place 1 tablet twice a day by transling ual route as directed for 7 days. 04/24 completed Not Available Not Available Not Available cefadroxil 500 mg capsule 1 CAP BY MOUTH 2 TIMES PER DAY FOR 10 DAYS 06/16 completed Not Available Not Available Not Available omeprazole 10 mg capsule,del ayed release TAKE 1 CAPSULE BY MOUTH EVERY DAY 12/22 completed Not Available Not Available Not Available lorazepam 0.5 mg tablet Take 1 tablet twice a day by oral route as directed for 14 days. 2024 active Not Available Not Available Not Avai lable methocarbam ol 750 mg tablet Take 1 tablet 3 times a day by oral route for 15 days. 07/10 completed Not Available Not Available Not Available amlodipine 10 mg tablet TAKE 1 TABLET BY MOUTH EVERY DAY 06/26 completed Not Available Not Available Not Available dexamethaso ne 4 mg tablet Take 1 [...] 30 MINUTES BEFORE MEAL TWICE A DAY TWICE A DAY active Not Available Not [...] Not Available Not Available Not Available ondansetron 4 mg disintegrat ing tablet DISSOLVE 1 TABLET BY MOUTH EVERY 8 HOURS NEEDED FOR NAUSEA AND VOMITING 06/26 completed Not Available Not Available Not Available [...] Available Not Available Not Available Flucelvax Quad 9592-2614 (PF) 60 mcg (15 mcg x 4)/0.5 mL IM syringe 07/10 completed Not Available Not Available Not Available Vitals Date Recorded Body height Body mass index (BMI) Body weight Heart rate Oxygen saturation Oxygen saturation in Arterial blood by Pulse oximetry Systolic And Diastolic Provider Name and Address Organization Details Last Updated DateTime 5 163.2 cm 33.2 kg/m2 56486.5 1 g 70 /min 98 % 98 % 130/80 mm[Hg] N[facility] 5 12:01:45 Social History Question Answer Notes LastModified by Organizat ion Details LastModified Time Tobacco Smoking Status Former Smoker [place] Stafford [facility] 05/01/2018 10:50:32 What Was The Date Of Your Most Recent Tobacco Screening? 06/26/2025 [email or web address] Information not available 06/26/2025 How Many Years Have You Smoked Tobacco? 15 [email or web address] Information not available 05/01/2018 Sex: Unknown Functional Status Question Answer Note LastModified by Organization D etails LastModified Time Do you or have you ever used any other forms of tobacco or nicotine? No [email or web address] Information not available 12/22/2022 Mental Status None recorded. Family History Nothing Reported. Medical History No medical history recorded. Gynecological HistoryNo gynecological history recorded. Obstetrics History GPAL:G 0 P 0 0 0 0 Immunizations Vaccine Type Date Status Note Provider Nam e and Address Organization Details Recorded Time COVID-19, mRNA, LNP-S, PF, 30 mcg/0.3 mL dose 04/01/2021 completed Not Available [facility] 3 10:23:01 COVID-19, mRNA, LNP-S, PF, 30 mcg/0.3 mL dose 01/14/2021 completed Not Available [facility] 3 10:23:01 Past Encounters Encounter ID Performer Location Encounter Start Date Encounter Closed Date Diagnosis/Indication Diagnosis SNOMED-CT Code Diagnosis ICD10 Code Diagnosis IMO Codes Diagnosis Note [id number] Wallace Keyes DO [facility] [address],[place] [address] 06/26/2025 11:53:32 06/26/2025 12:26:30 Pigmented skin lesion 193170723 D22.9 [id number] set up with new derm referral Lumbar radiculopathy 128 449893 M54.16 20531 will need new MRI Low back pain 971891025 M54.59 will need new MRI Health Concerns Section Related Observation LastModified by Organization Detai ls LastModified Time None Recorded Concern Status LastModified by Organization Details LastModified Time None Recorded Payers Encounter Date Sequence Insurance Name Policy Number Policy Mendez Covered Member ID Mendez Member ID Guarantor Name 06/26/2025 1 [facility] Rhea Caballero [id number] Rhea Caballero Notes Date Note Type Note Provider Name and Address Organization Details Recorded Time 5 text/html ROS as noted in the HPI c/o back pain, radiculopathy the patient has a hx of joint painthe patient reports that she has for the past few months had back pain radiating into the legs and hipsprobable radiculopathy, the patient has been taking advil, two BIDthe patient needs update imaging, recommended XR then MRI patient agreeshas hx of severe spine pain and degenerative changesrecommended updated imaginggait changes, reduced ROM with flexion of the spine EUGENE CORRIGAN [address] [place] [address], [address], [facility] 06/26/2025 12:22:17 OBGyn Episode No OBEpisode recorded.
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
== END 2025-06-26 12:51 | disposition home or self-care (01) ==
LOC: HO.XRAY 12:50
PROVIDERS: PCP Internal Medicine; Visit Provider Physician Assistant
DX: M54.16 Radiculopathy, lumbar region (principal)
CPT/HCPCS: 72100

== ENCOUNTER → 2025-06-26 13:00 | Outpatient (BNV) | payer OTHER, SELFPAY | PROVIDERS: PCP Internal Medicine; Visit Provider Radiology Diagnostic Ultrasound | DX: M54.16 Radiculopathy, lumbar region (principal); M47.816 Spondylosis without myelopathy or radiculopathy, lumbar region; M51.369 Other intervertebral disc degeneration, lumbar region without mention of lumbar back pain or lower extremity pain | CPT/HCPCS: 72100 ==

== ENCOUNTER 2025-07-29 11:25 | Outpatient (REF) | payer OTHER, SELFPAY ==
--- NOTE | ~2025-07-29 | XR_ITS ---
EXAMINATION: XR CHEST CLINICAL INFORMATION: ACUTE COUGH COMPARISON: 01/21/2023. TECHNIQUE: 2 views of the chest were obtained. FINDINGS: The cardiac, hilar, and mediastinal contours are normal. The lungs are clear bilaterally. There is no pneumothorax or pleural effusion. There is no focal osseous or soft tissue abnormality. XR/XR chest 2V IMPRESSION: Normal chest. Electronically signed by: Mikal Sierra MD 07/29/2025 12:20 PM [email or web address]
--- OUTSIDE RECORDS SUMMARY | 2025-07-29 15:11 | XMS_ITS | Encounter Summary ---
Author Organization [facility] Address [address] [place] [address] Phone Care Team Providers Care Chaser Apprentice Name Role Phone Wallace Keyes DO Primary Care Provider [phone] Wallace Keyes DO Unavailable Debbie Wilson CUFF MATCHER Unavailable Trey Cruz Unavailable Hina Jackson CUFF MATCHER Unavailable Silvestre Weems MD Unavailable Monica Hernandez MD Unavailable Dulce Maria Geurra CUFF MATCHER Unavailable Mookie Mary MD Unavailable Cassy Robert PA-C Unavailable Becca Maciel MD Unavailable Jocelin Del Castillo MD Unavailable Vargas Holt MD Unavailable [phone] Susan Bennett CUFF MATCHER Unavailable Milena Estrella MD Unavailable Wallace Keyes DO Unavailable Janell Dumont Primary Care Provider Wallace Keyes Gaston Primary Care Provider [phone] WaliWallace DO Unavailable Encounter Details Date Type Department Care Team (Late st Contact Info) Description 11/18/2017 Procedure Pass OR Admitting Dept - Virtual Department [address] [place] [address] Social History Tobacco Use Types Packs/Day Years [...] on file documented as of this encounter Visit Diagnoses Not on filedocumented in this encounter Additional Health Concerns Infection Onset Date Last Indicated Resolved Time MRSA Comment:Infection Loaded by the Load Infection Utility 08/31/2016 08/31/2016 10/20/2022 1:[address] CoV-Risk 03/12/2020 03/12/2020 03/26/2020 1:24 AM EDT documented as of this encounter Care Teams Chaser Apprentice Relationship Specialty Start Date End Date Wallace Keyes DO PCP - General 06/21/17 01/16/21 Janell Dumont PA [address] [place] [address] PCP - General Unknown Provider Specialty 01/17/21 02/17/22 Wallace Keyes DO PCP - General Internal Medicine 02/18/22 Wallace Keyes DO [address] [place] [address] [email or web address] Historical LMR Provider 06/21/17 01/16/21 Debbie Wilson NP [address] [place] [address] Historical LMR Provider 06/21/17 Trey Cruz PA [address] [place] [address] Historical LMR Provider 06/21/17 Hina Jackson NP [address] [place] [address] Historical LMR Provider 06/21/17 Silvestre Weems MD [address] [place] [address] [email or web address] Historical LMR Provider 06/21/17 01/16/21 Monica Hernandez MD [address] [place] [address] Historical LMR Provider 06/21/17 Dulce Maria Guerra NP [address] [place] [address] [email or web address] Historical LMR Provider 06/21/17 Mookie Mary MD [address] [place] [address], [address] [place] [address] Historical LMR Provider 06/21/17 01/16/21 Cassy Robert PA-C [address] [place] [address] [place] [address] Historical LMR Provider 06/21/17 1 Becca Maciel MD [address] [place] [address] [place] [address] [email or web address] Historical LMR Provider 06/21/1701/16 Jocelin Del Castillo MD [address] [place] [address] [place] [address] [email or web address] Historical LMR Provider 06/21/17 01/16/21 Vargas Holt MD [address] [place] [address] Historical LMR Provider 06/21/17 Susan Bennett NP [address] [place] [address] Historical LMR Provider 06/21/17 Milena Estrella MD [address] [place] [address] [id number] [email or web address] Historical LMR Provider 06/21/17 01/16/21 Wallace Keyes DO [address] [place] [address] [email or web address] Insurance Assigned Provider 01/09/20 01/16/21 Wallace Keyes DO [address] [place] [address] [email or web address] Insurance Assigned Provider 12/10/23 documented as of this encounter Additional Source Comments The information contained in this document represents components of the legal health record. It is not the complete legal health record.[facility]
--- OUTSIDE RECORDS SUMMARY | 2025-07-29 15:11 | XMS_ITS | Encounter Summary ---
Author Organization [facility] Address [address] [place] [address] Phone Care Team Providers Care Laborer Pie Bakery Name Role Phone Wallace Keyes DO Primary Care Provider [phone] Wallace Keyes DO Unavailable Debbie Wilson IMPLEMENTATION TECHNICIAN Unavailable Trey Cruz Unavailable Hina Jackson IMPLEMENTATION TECHNICIAN Unavailable Silvestre Weems MD Unavailable Monica Hernandez MD Unavailable Dulce Maria Guerra IMPLEMENTATION TECHNICIAN Unavailable Mookie Mary MD Unavailable Cassy Robert PA-C Unavailable Becca Maciel MD Unavailable Jocelin Del Castillo MD Unavailable Vargas Holt MD Unavailable [phone] Susan Bennett IMPLEMENTATION TECHNICIAN Unavailable Milena Estrella MD Unavailable Wallace Keyes DO Unavailable Janell Dumont Primary Care Provider CindiWallace cates DO Primary Care Provider [phone] Wallace Keyes DO Unavailable Encounter Details Date Type Department Care Team (Late st Contact Info) Description 07/14/2018 Ancillary Orders [facility], X-Ray - [facility] [address] [place] [address] Wallace Keyes, [address] [facility] [place] [address] [place] [address] Abdominal pain, unspecified abdominal location Social History [...] documented as of this encounter Care Teams Laborer Pie Bakery Relationship Specialty Start Date End Date Wallace Keyes DO PCP - General 06/21/17 01/16/21 Janell Dumont PA [address] [address] PCP - General Unknown Provider Specialty 01/17/21 02/17/22 Wallace Keyes DO PCP - General Internal Medicine 02/18/22 Wallace Keyes DO [address] [place] [address] Historical LMR Provider 06/21/17 01/16/21 Debbie Wilson NP [address] [place] [address] Historical LMR Provider 06/21/17 Trey Cruz PA [address] [place] [address] Historical LMR Provider 06/21/17 Hina Jackson NP [address] [place] [address] Historical LMR Provider 06/21/17 Silvestre Weems MD [address] [place] [address] [email or web address] Historical LMR Provider 06/21/17 01/16/21 Monica Hernandez MD [address] [place] [address] Historical LMR Provider 06/21/17 Dulce Maria Guerra NP [address] [place] [address] [email or web address] Historical LMR Provider 06/21/17 Mookie Mary MD [address] [place] [address], [address] [place] [address] [email or web address] Historical LMR Provider 06/21/17 01/16/21 Cassy Robert PA-C [address] [place] [address] Orthopedics & Sports Medicine, [facility] [place] [address] Historical LMR Provider 06/21/17 1 Becca Maciel MD [address] [place] [address] Orthopedics & Sports [facility] [place] [address] [email or web address] Historical LMR Provider 06/21/1701/16 Jocelin Del Castillo MD [address] [place] [address] Orthoped[facility] Sports [facility], [place] [address] Historical LMR Provider 06/21/17 01/16/21 Vargas Holt MD [address] [place] [address] Historical LMR Provider 06/21/17 Susan Bennett NP [address] [place] [address] Historical LMR Provider 06/21/17 Milena Estrella MD [address] [place] [address] [email or web address] Historical LMR Provider 06/21/17 01/16/21 Wallace Keyes DO [address] [place] [address] [email or web address] Insurance Assigned Provider 01/09/20 01/16/21 Wallace Keyes DO [address] [place] [address] [email or web address] Insurance Assigned Provider 12/10/23 documented as of this encounter Additional Source Comments The information contained in this document represents components of the legal health record. It is not the complete legal health record.[facility]
--- OUTSIDE RECORDS SUMMARY | 2025-07-29 15:12 | XMS_ITS | Encounter Summary ---
Author Organization [facility] Address [address] [place] [address] Phone Care Team Providers Care Rock Mason Apprentice Name Role Phone Wallace Keyes DO Primary Care Provider [phone] Wallace Keyes DO Unavailable Debbie Wilson ADJUNCT PHYSICS INSTRUCTOR Unavailable [phone] Trey Cruz Unavailable Hina Jackson ADJUNCT PHYSICS INSTRUCTOR Unavailable Silvestre Weems MD Unavailable Monica Hernandez MD Unavailable Dulce Maria Guerra ADJUNCT PHYSICS INSTRUCTOR Unavailable Mookie Mary MD Unavailable Cassy Robert PA-C Unavailable Becca Maciel MD Unavailable Jocelin Del Castillo MD Unavailable Vargas Holt MD Unavailable [phone] Susan Bennett ADJUNCT PHYSICS INSTRUCTOR Unavailable Milena Estrella MD Unavailable Wallace Keyes DO Unavailable Janell Dumont Primary Care Provider CindiWallace cates DO Primary Care Provider [phone] Wallace Keyes DO Unavailable Encounter Details Date Type Department Care Team (Latest Contact Info) Description 11/11/2017 Transcribe Orders [facility] [address] [address] Rodri Yuen MD [address] [place] [address] [email or web address] Dysphagia, unspecified type (Primary Dx) Social History Tobacco Use Types Packs/Day Years [...] documented as of this encounter Results * Immunoglobulin A (11/11/2017 8:26 AM EST) Pathologist [facility] IgA 198 70 - 400 mg/dL [facility] Blood 11/11/2017 8:26 AM EST 11/11/2017 8:31 AM EST us Rodri Yuen MD LAB BLOOD BKR ORDERABLES Final R esult [facility] [address] [place] [address] * Tissue transglutaminase IgA (11/11/2017 8:26 AM EST) TTG IGA ANTIBODY <1.2 <4.0 (Negative) U/mL [facility]+ Blood 11/11/2017 8:26 AM EST 11/11/2017 8:31 AM EST us Rodri Yuen MD LAB BLOOD BKR ORDERABLES Final R esult [facility]+ [address] [place] [address] documented in this encounter Visit Diagnoses Diagnosis Dysphagia, unspecified type- Primary documented in this encounter Additional Health Concerns Infection Onset Date Last Indicated Resolved Time MRSA Comment:Infection Loaded by the Load Infection Utility 08/31/2016 08/31/2016 10/20/2022 1:[address] CoV-Risk 03/12/2020 03/12/2020 03/26/2020 1:24 AM EDT documented as of this encounter Care Teams Rock Mason Apprentice Relationship Specialty Start Date End Date Wallace Keyes DO PCP - General 06/21/17 01/16/21 Janell Dumont PA [address] [place] [address] PCP - General Unknown Provider Specialty 01/17/21 02/17/22 Wallace Keyes DO PCP - General Internal Medicine 02/18/22 Wallace Keyes DO [address] [place] [address] Historical LMR Provider 06/21/17 01/16/21 Debbie Wilson NP [address] [place] [address] Historical LMR Provider 06/21/17 Trey Cruz PA [address] [place] [address] Historical LMR Provider 06/21/17 Hina Jackson NP [address] [place] [address] Historical LMR Provider 06/21/17 Silvestre Weems MD [address] [place] [address] [email or web address] Historical LMR Provider 06/21/17 01/16/21 Monica Hernandez MD [address] [place] [address] Historical LMR Provider 06/21/17 Dulce Maria Guerra NP [address] [place] [address] [email or web address] Historical LMR Provider 06/21/17 Mookie Mary MD [address] [place] [address], [address] [place] [address] [email or web address] Historical LMR Provider 06/21/17 01/16/21 Cassy Robert PA-C [address] [place] [address] [facility] Medicine, [place] [address] Historical LMR Provider 06/21/17 1 Becca Maciel MD [address] [place] [address] [facility], [place] [address] Historical LMR Provider 06/21/1701/16 Jocelin Del Castillo MD [address] [place] [address] [facility] [place] [address] Historical LMR Provider 06/21/17 01/16/21 Vargas Holt MD [address] [place] [address] Historical LMR Provider 06/21/17 Susan Bennett NP [address] [place] [address] Historical LMR Provider 06/21/17 Milena Estrella MD [address] [address] [email or web address] Historical LMR Provider 06/21/17 01/16/21 Wallace Keyes DO [address] [place] [address] Insurance Assigned Provider 01/09/20 01/16/21 Wallace Keyes DO [address] [place] [address] Insurance Assigned Provider 12/10/23 documented as of this encounter Additional Source Comments The information contained in this document represents components of the legal health record. It is not the complete legal health record.[facility]
--- OUTSIDE RECORDS SUMMARY | 2025-07-29 15:12 | XMS_ITS | Encounter Summary ---
Author Organization [facility] Address [address] [place] [address] Phone Care Team Providers Care Auto Service Station Attendant Name Role Phone Wallace Keyes DO Primary Care Provider [phone] Wallace Keyes DO Unavailable Debbie Wilson UPHOLSTERY INSTRUCTOR Unavailable Trey Cruz Unavailable Hina Jackson UPHOLSTERY INSTRUCTOR Unavailable Silvestre Weems MD Unavailable Monica Hernandez MD Unavailable Dulce Maria Guerra UPHOLSTERY INSTRUCTOR Unavailable Mookie Mary MD Unavailable Cassy Robert PA-C Unavailable Becca Maciel MD Unavailable Jocelin Del Castillo MD Unavailable Vargas Holt MD Unavailable [phone] Susan Bennett UPHOLSTERY INSTRUCTOR Unavailable Milena Estrella MD Unavailable Wallace Keyes DO Unavailable Janell Dumont Primary Care Provider Wallace Keyes DO Primary Care Provider [phone] Wallace Keyes DO Unavailable Encounter Details Date Type Department Care Team (Late st Contact Info) Description 03/19/2020 Ancillary Orders Virtual Department [address] [place] [address] Wallace Keyes DO [address] [facility] [place] [address] [place] [address] [email or web address] Breast screening Social History Tobacco Use Types Packs/Day Years Used Date Smoking Tobacco: Former Smokeless Tobacco: Never Comments:quit @ age 29 Alcohol Use Standard Drinks/Week Comments Yes 10 (1 standard drink = 0.6 oz pu re alcohol) Comments No Sex and Gender Information Value Date Recorded Sex Assigned at Female 03/24/2018 7:37 AM EDT Legal Sex Female 9:41 PM EDT Gender Identity Female 03/24/2018 7:37 AM EDT Sexual Orientation Not on file documented as of this encounter Plan of Treatment Not on file documented as of this encounter Results * BI MAMMOGRAM SCREENING WITH TOMOSYNTHESIS WITH CAD (BILATERAL) (04/24/2020 10:38 AM EDT) Anatomical Region Laterality Modality Breast Left, Breast Right, Breast Bilateral Bila teral Mammography 04/24/2020 12:4 7 PM EDT Impressions 04/24/2020 12:49 PM EDT BILATERAL BREASTS: Benign, no evidence of malignancy. Normal interval follow-up is recommended in 12 months. BI-RADS: BI-RADS CATEGORY: 2 - Benign finding. DENSITY: There are scattered fibroglandular densities. Narrative 04/24/2020 12:49 PM EDT STUDY: Bilateral screening mammography with tomosynthesis and CAD TECHNIQUE: Bilateral full-field digital screening mammography is obtained and read in conjunction with computer-aided detection. Tomosynthesis as well as 2-D C view imaging were obtained. COMPARISON: Comparison made to multiple prior, most recent December 19, 2018, and most remote August 10, 2012. BREAST COMPOSITION: There are scattered areas of fibroglandular density BILATERAL BREASTS: History of bilateral reduction mammoplasty. No significant masses, calcifications or other abnormalities are seen. Procedure Note David Abel MD - 04/24/2020 STUDY: Bilateral screening mammography with tomosynthesis and CAD TECHNIQUE: Bilateral full-field digital screening mammography is obtainedand read in conjunction with computer-aided detection. Tomosynthesis aswell as 2-D C view imaging were obtained. COMPARISON: Comparison made to multiple prior, most recent December 19, 2018,and most remote August 10, 2012. BREAST COMPOSITION: There are scattered areas of fibroglandulardensity BILATERAL BREASTS: History of bilateral reduction mammoplasty. Nosignificant masses, calcifications or other abnormalities are seen. IMPRESSION: BILATERAL BREASTS: Benign, no evidence of malignancy. Normal intervalfollow-up is recommended in 12 months. BI-RADS: BI-RADS CATEGORY: 2 - Benign finding. DENSITY: There are scattered fibroglandular densities. Wallace Keyes DO IMG MG EXAMS Final Result documented in this encounter Visit Diagnoses Diagnosis Breast screening Breast screening, unspecified Breast screening Breast screening, unspecified documented in this encounter Additional Health Concerns Infection Onset Date Last Indicated Resolved Time MRSA Comment:Infection Loaded by the Load Infection Utility 08/31/2016 08/31/2016 10/20/2022 1:[address] CoV-Risk 03/12/2020 03/12/2020 03/26/2020 1:24 AM EDT documented as of this encounter Care Teams Auto Service Station Attendant Relationship Specialty Start Date End Date Wallace Keyes DO PCP - General 06/21/17 01/16/21 Janell Dumont PA [address] [address] PCP - General Unknown Provider Specialty 01/17/21 02/17/22 Wallace Keyes DO PCP - General Internal Medicine 02/18/22 Wallace Keyes DO [address] [place] [address] Historical LMR Provider 06/21/17 01/16/21 Debbie Wilson NP [address] [place] [address] Historical LMR Provider 06/21/17 Trey Cruz PA [address] [place] [address] Historical LMR Provider 06/21/17 Hina Jackson UPHOLSTERY INSTRUCTOR [address] [place] [address] Historical LMR Provider 06/21/17 Silvestre Weems MD [address] [place] [address] [email or web address] Historical LMR Provider 06/21/17 01/16/21 Monica Hernandez MD [address] [place] [address] Historical LMR Provider 06/21/17 Dulce Maria Guerra UPHOLSTERY INSTRUCTOR [address] [place] [address] [email or web address] Historical LMR Provider 06/21/17 Mookie Mary MD 22 [facility], [address] [place] [address] Historical LMR Provider 06/21/17 01/16/21 Cassy Robert PA-C [address] [place] [address] Orthopedics & Sports [facility], [place] [address] [email or web address] Historical LMR Provider 06/21/17 1 Becca Maciel MD [address] [place] [address] [facility] [place] [address] [email or web address] Historical LMR Provider 06/21/1701/16 Jocelin Del Castillo MD [address] [place] [address] [place] [address] [email or web address] Historical LMR Provider 06/21/17 01/16/21 Vargas Holt MD [address] [place] [address] Historical LMR Provider 06/21/17 Susan Bennett NP [address] [place] [address] Historical LMR Provider 06/21/17 Milena Estrella MD [address] [place] [address] [phone] [email or web address] Historical LMR Provider 06/21/17 01/16/21 Wallace Keyes DO [address] [place] [address] Insurance Assigned Provider 01/09/20 01/16/21 Wallace Keyes DO [address] [place] [address] [email or web address] Insurance Assigned Provider 12/10/23 documented as of this encounter Additional Source Comments The information contained in this document represents components of the legal health record. It is not the complete legal health record.[facility]
--- OUTSIDE RECORDS SUMMARY | 2025-07-29 15:12 | XMS_ITS | Clinical Summary ---
Author Organization [facility] Address [address] [address] Phone Care Team Providers Care Conference Planning Manager Name Role Phone CindiSonido cates Primary Care Provider [phone] CindiSonido cates DO Unavailable Allergies No known active allergies Medications albuterol 90 mcg/actuation inhaler Inhale 1 puff into the lungs every 4 (four) hours as needed. Active loratadine (CLARITIN) 10 mg tablet Take 10 mg by mouth daily as needed. Active therapeutic multivitamin tablet Take 1 tablet by mouth daily. Active ibuprofen (ADVIL,MOTRIN) 200 MG tablet Take 600 mg by mouth every 6 (six) hours as needed for pain (specific location in comments). Active Lactobacillus acidophilus (PROBIOTIC ORAL) Take 1 capsule by mouth daily. Active hydroCHLOROthiazi de 25 MG tablet Take 25 mg by mouth daily. Active losartan (COZAAR) 50 MG tablet Take 1 tablet by mouth 2 (two) times a day. 4 Active omeprazole (PRILOSEC) 20 MG capsule Take 20 mg by mouth 2 (two) times a day. 4 Active MAGNESIUM ORAL Take 1 tablet by mouth nightly at bedtime. Active cholecalciferol, vitamin D3, (VITAMIN D3 ORAL) Take 1 capsule by mouth daily. Active carvedilol (COREG) 6.25 MG tablet Take 6.25 mg by mouth. 5 Active Hospital, Clinic, or Other Facility Administered Medication Ordered Dose Route Frequency Start Date End Date Status triamcinolone acetonide (KENALOG-40) 40 mg/mL injection 20 mgIndications:Arthra lgia of both hands 20 mg See Adm Inst See admin instructions 04/10/2024 Active lidocaine (XYLOCAINE) 1% injection 0.5 mLIndications:Arthra lgia of both hands 0.5 mL See Adm Inst See admin instructions 04/10/2024 Active triamcinolone acetonide (KENALOG-40) 40 mg/mL injection 20 mg 20 mg See Adm Inst See admin instructions 11/20/2024 Active lidocaine (XYLOCAINE) 1% injection 0.5 mL 0.5 mL See Adm Inst See admin instructions 11/20/2024 Active triamcinolone acetonide (KENALOG-40) 40 mg/mL injection 80 mgIndications:Primar y localized osteoarthritis of left knee 80 mg IM Once 07/22/2025 6 Active BUPivacaine (PF) (MARCAINE) 0.25% injection 2 mLIndications:Primar y localized osteoarthritis of left knee 2 mL See Adm Inst Once 07/22/2025 6 Active lidocaine (XYLOCAINE) 1% injection 2 mLIndications:Primar y localized osteoarthritis of left knee 2 mL Infil Once 07/22/2025 6 Active Active Problems Problem Noted Date Diagnosed Date Hypertension 10/16/2024 Headache 10/16/2024 Asthma 10/16/2024 GERD (gastroesophageal reflux disease) Multiple sclerosis 10/16/2024 Hiatal hernia 10/16/2024 Anxiety 10/16/2024 Sleep apnea 10/16/2024 Right carpal tunnel syndrome Encounters Date Type Department Care Team Description 07/22/2025 11:15 AM EST Office Visit [facility] Orthopedics & Sports Medicine [address] [place] [id number] Becca Maciel MD Primary localized osteoarthritis of left knee (Primary Dx) from Last 3 Months Family History Medical History Relation Comments Cancer Father lung at 70 Hypertension Maternal Grandfather Stroke Maternal Grandfather Arthritis Maternal Grandmother Cancer Mother bladder Heart attack Paternal Grandfather Hypertension Paternal Grandfather Hypertension Paternal Grandmother Hypertension Sibling Relation Status Comments Father Maternal Grandfather Maternal Grandmother Mother Alive Paternal Grandfather Paternal Grandmother Sibling Social History Tobacco Use Types Packs/Day Years Used Date Smoking Tobacco: Former Cigarettes Q uit: 1993 Smokeless Tobacco: Never Tobacco Cessation:Counseling Given: Not Answered Comments:quit @ age 29 Alcohol Use Standard Drinks/Week Comments Yes 4 (1 standard drink = 0.6 oz pur e alcohol) 2 drinks 2-3 times per week Education Answer Date Recorded Are you interested in more education? Not on lia e 12/31/2022 Are you concerned about learning? Not on file 12/31/2022 No 12/31/2022 No 12/31/2022 Digital Access Answer Date Recorded No 01/29/2023 No 01/29/2023 Reliable internet access at home? Not on file 01/29/2023 Device with a working camera? Not on file Intimate Partner Violence Answer Date R ecorded Are you denied basic needs s uch as food, clothing, or medical care? No 10/17/2024 In the past 12 months have y ou been in a relationship with a person who hurts, threatens, or tries to control you? No 10/17/2024 Are you denied basic needs s uch as food, clothing, or medical care? No 10/17/2024 In the past 12 months have y ou been in a relationship with a person who hurts, threatens, or tries to control you? No 10/17/2024 Comments No Sex and Gender Information Value Date Recorded Sex Assigned at Female 03/24/2018 7:37 AM EDT Legal Sex Female 9:41 PM EDT Gender Identity Female 03/24/2018 7:37 AM EDT Sexual Orientation Not on file Last Filed Vital Signs Vital Sign Reading Time Taken Comments Blood Pressure 142/78 10/17/2024 11:20 AM EST Pulse 84 10/17/2024 11:20 AM EST Temperature 36.1 C (96.9 F) 10/17/2024 10:35 AM EST Respiratory Rate 18 10/17/2024 11:20 AM EST Oxygen Saturation 98% 10/17/2024 11:20 AM EST Inhaled Oxygen Concentration - - Weight 91.6 kg (202 lb) 10/17/2024 9:34 AM EST Height 165.1 cm (5' 5 ) 10/17/2024 9:34 AM EST Body Mass Index 33.61 10/17/2024 9:34 AM EST Plan of Treatment Health Maintenance Due Date Last Done Comments Adult Td,Tdap Booster 1965 DEPRESSION SCREENING 1977 HEPATITIS C SCREENING 1983 HIV ONE-TIME SCREENING (18-6 5 YEARS) 1983 PNEUMOCOCCAL VACCINES (50+ years) (1 of 2 - PCV) 1984 PAP SMEAR 1986 COLOGUARD 2010 FIT TEST 2010 FOBT 2010 SIGMOIDOSCOPY 2010 VIRTUAL COLONOSCOPY 2010 RSV VACCINE (1 - Risk 50-74 years 1-dose series) 2015 ZOSTER VACCINES (1 of 2) 2015 MAMMOGRAM 04/24/2022 04/24/2020, 12/19/2018, 11/04/2015 BLOOD PRESSURE 10/22/2023 04/21/2023 CREATININE LEVEL 12/01/2023 11/30/2022, 01/07/2021, 07/14/2018 POTASSIUM LEVEL 12/01/2023 11/30/2022, 01/07/2021, 07/14/2018 INFLUENZA VACCINE (#1) 2025 7, 09/08/2015 COVID-19 VACCINE (3 - 2024-2 6 season) 2025 04/01/2021, 01/14/2021 SCREENING FOR DIABETES 11/30/2025 11/30/2022 SMOKING Hx and SMOKELESS TOBACCO SCREENING 03/18/2026 03/18/2025 COLONOSCOPY 10/31/2027 10/31/2017 COLORECTAL CANCER SCREENING 10/31/2027 LIPID PANEL 12/10/2027 12/09/2022, 12/09/2022, 11/30/2021 HEPATITIS A VACCINES Aged Out No long er eligible based on patient's age to complete this topic HIB VACCINES Aged Out No longer eligi ble based on patient's age to complete this topic MENINGOCOCCAL VACCINES (ACWY) Aged Out No longer eligible based on patient's age to complete this topic MENINGOCOCCAL VACCINES (B) Aged Out N o longer eligible based on patient's age to complete this topic Medical Devices Implanted Type Area Black Top Roller Device Identifier Shelf Expiration Date Model / Serial / Lot Toe Description:RT great toe, oconnor rdware. Procedures Procedure Name Priority Date/Time Associated Diagnosis Comments BASIC METABOLIC PANEL (BMP) STAT 11/30/2022 6:04 PM EDT BI MAMMOGRAM SCREENING WITH TOMOSYNTHESIS WITH CAD (BILATERAL) Routine 04/24/2020 10:38 AM EDT Breast screening ENDOSCOPY, COLON 10/31/2017 11:5 4 AM EST from Last 3 Months or Most Recently Relevant to Health Maintenance Results * (ABNORMAL) Basic metabolic panel (11/30/2022 6:04 PM EDT) SODIUM 141 133 - 146 mmol/L [facility] CHLORIDE 104 96 - 108 mmol/L [facility] POTASSIUM 4.2 3.3 - 5.1 mmol/L [facility] CO2 26 21 - 35 mmol/L [facility] BUN 17 6 - 19 mg/dL [facility] CREATININE 0.60 0.5 - 1.5 mg/dL [facility] GLUCOSE 109(H) 70 - 99 mg/dL [facility] CALCIUM 9.5 8.4 - 10.3 mg/dL [facility] EGFR 105 >59 mL/min/1.7 3m2 [facility] Comment:Estimated glomerular filtration rate calculated using the CKD-EPI refit equation. ANION GAP 15 10 - 20 mmol/L [facility] Blood 11/30/2022 6:04 PM EDT 11/30/2022 6:08 PM EDT us Steve Spicer MD LAB BLOOD BKR ORDERABLES Final Result [facility] [address] [place] [address] * BI MAMMOGRAM SCREENING WITH TOMOSYNTHESIS WITH [...] finding. DENSITY: There are scattered fibroglandular densities. us Sonido A Bigda DO IMG MG EXAMS Final Result * ENDOSCOPY, COLON (10/31/2017 11:54 AM EST) Narrative Transcriptions Rodri Horvath MD - 10/31/2017 11:54 AM EST Patient Name: Rhea Caballero Attending MD:: RODRI HORVATH MD, Procedure Date: 10/31/2017 11:54 AM Date of : 1965 Age: 52 Admit Type: Outpatient Gender: Female Room: [place] [address] Referring MD: SONIDO LECHUGA DO Exam Type: Colonoscopy Indications: Screening for colorectal malignant neoplasm Medications: Monitored Anesthesia Care Procedure: Informed consent was obtained from the patient after discussion of the indications, limitations,alternatives, benefits, and risks of the procedure. Risksspecifically discussed include but are not limited to medication reactions, missed lesions, bleeding, perforation, orthe need for emergent surgery. Throughout the procedure, the patient's blood pressure, pulse, end-tidal CO2, and oxygen saturations were monitored continuously. The Olympus pediatric colonoscope PCFQ 180AL #7 was introduced through the anus and advanced to the cecum, identified by appendiceal orifice and ileocecal valve.The colonoscopy was performed without difficulty. Thepatient tolerated the procedure well. The quality of the bowel preparation was excellent. Complications: No immediate complications. Estimated blood loss:None. Findings: The perianal and digital rectal examinations werenormal. Non-bleeding internal hemorrhoids were found during retroflexion. The hemorrhoids were small. No other significant abnormalities were identified in a careful examination of the remainder of the colon. Impression: - Non-bleeding internal hemorrhoids. - No specimens collected. Recommendation: - Discharge patient to home. - Repeat colonoscopy in 10 years for screeningpurposes. RODRI HORVATH MD, 10/31/2017 12:25:58 PM This report has been signed electronically. Number of Addenda: 0 Note Initiated On: 10/31/2017 11:54 AM Diagnosis Code(s): --- Professional --- K64.8, Other hemorrhoids Z12.11, Encounter for screening for malignant neoplasm of colon --- Technical --- K64.8, Other hemorrhoids Z12.11, Encounter for screening for malignant neoplasm of colon [address] [place] [address] Sonido Gaston Wali DO GI PROCEDURE ORDERABLES Edited R esult - Final from Last 3 Months or Most Recently Relevant to Health Maintenance Insurance EXPLORER POS [facility] [place] [address] [place] [address] [place] [address] [place] [address] [place] [address] [place] [address] EXPLORER POS [facility] EXPLORER POS [facility] EXPLORER POS HC EXPLORER POS Advance Directives For more information, please contact: [phone] (9AM - 5PM [facility], Tuesday-Tuesday) Documents on File Type Date Recorded Patient Director Stage Expl anation Healthcare Proxy 11/21/2017 11:29 AM Care Teams Conference Planning Manager Relationship Specialty Start Date End Date Sonido Lechuga DO PCP - General Internal Medicine 02/18/22 Sonido Lechuga DO [address] [place] [id number] Insurance Assigned Provider 12/10/23 Additional Source Comments The information contained in this document represents components of the legal health record. It is not the complete legal health record.[facility]
--- OUTSIDE RECORDS SUMMARY | 2025-07-29 15:13 | XMS_ITS | Encounter Summary ---
Author Organization [facility] Address [address] [place] [address] Phone Care Team Providers Care Systems Integration Advisor Name Role Phone Wallace Keyes DO Primary Care Provider [phone] Wallace Keyes DO Unavailable Debbie Wilson WATER TRUCK DRIVER Unavailable Trey Cruz Unavailable Hina Jackson WATER TRUCK DRIVER Unavailable Silvestre Weems MD Unavailable Monica Hernandez MD Unavailable Dulce Maria Guerra WATER TRUCK DRIVER Unavailable Mookie Mary MD Unavailable Cassy Robert PA-C Unavailable Becca Maciel MD Unavailable Jocelin Del Castillo MD Unavailable Vargas Holt MD Unavailable [phone] Susan Bennett WATER TRUCK DRIVER Unavailable Milena Estrella MD Unavailable Wallace Keyes DO Unavailable Janell Dumont Primary Care Provider Wallace Keyes DO Primary Care Provider [phone] Wallace Keyes DO Unavailable Encounter Details Date Type Department Care Team (Late st Contact Info) Description 03/18/2020 Ancillary Orders Virtual Department [address] [place] [address] Wallace Keyes DO [address] [facility] [address] [place] [address] [email or web address] Paresthesia Social History Tobacco Use Types Packs/Day Years [...] as of this encounter Results * XR LUMBOSACRAL SPINE 4 OR MORE VIEWS (03/20/2020 2:41 PM EDT) Anatomical Region Laterality Modality L-spine Computed Radiogr aphy 03/20/2020 2:50 PM EDT Impressions 03/20/2020 2:53 PM EDT Progression of degenerative disc and endplate changes at L2-L3. No other significant changes. POS - [id number] Narrative 03/20/2020 2:53 PM EDT HISTORY: Lower back pain and paresthesias. COMPARISON: Lumbar spine x-ray 08/04/2012. VIEWS: AP, lateral and bilateral oblique views. FINDINGS: Moderate degenerative disc and degenerative endplate changes at L2-L3, progressed from 08/04/2012. Mild degenerative disc and endplate changes at L3-L4 are similar. Mild degenerative endplate changes at the other levels are essentially stable. No compression fractures or subluxations. No evidence of significant facet arthropathy. No evidence of SI joint abnormalities. Procedure Note Woo Wolf MD - 03/20/2020 HISTORY: Lower back pain and paresthesias. COMPARISON: Lumbar spine x-ray 08/04/2012. VIEWS: AP, lateral and bilateral oblique views. FINDINGS: Moderate degenerative disc and degenerative endplate changes at L2-L3,progressed from 08/04/2012. Mild degenerative disc and endplate changes atL3-L4 are similar. Mild degenerative endplate changes at the other levelsare essentially stable. No compression fractures or subluxations. No evidence of significant facet arthropathy. No evidence of SI jointabnormalities. IMPRESSION: Progression of degenerative disc and endplate changes at L2-L3. No othersignificant changes. POS - [id number] us Wallace Keyes DO IMG XR SPINE Final Result documented in this encounter Visit Diagnoses Diagnosis Paresthesia Disturbance of skin sensation Paresthesia Disturbance of skin sensation documented in this encounter Additional Health Concerns Infection Onset Date Last Indicated Resolved Time MRSA Comment:Infection Loaded by the Load Infection Utility 08/31/2016 08/31/2016 10/20/2022 1:[address] CoV-Risk 03/12/2020 03/12/2020 03/26/2020 1:24 AM EDT documented as of this encounter Care Teams Systems Integration Advisor Relationship Specialty Start Date End Date Wallace Keyes DO PCP - General 06/21/17 01/16/21 Janell Dumont PA [address] [place] [phone] PCP - General Unknown Provider Specialty 01/17/21 02/17/22 Wallace Keyes DO PCP - General Internal Medicine 02/18/22 Wallace Keyes DO [address] [facility] [address] [email or web address] Historical LMR Provider 06/21/17 01/16/21 Debbie Wilson NP [address] [place] [address] Historical LMR Provider 06/21/17 Trey Cruz PA [address] [place] [address] Historical LMR Provider 06/21/17 Hina Jackson NP [address] [place] [address] Historical LMR Provider 06/21/17 Silvestre Weems MD [address] [place] [address] [email or web address] Historical LMR Provider 06/21/17 01/16/21 Monica Hernandez MD [address] [place] [address] Historical LMR Provider 06/21/17 Dulce Maria Guerra NP [address] [place] [address] [email or web address] Historical LMR Provider 06/21/17 Mookie Mary MD [address] [place] [address], [address] [place] [address] Historical LMR Provider 06/21/17 01/16/21 Cassy Robert PA-C [address] [place] [address] [facility] [place] [address] Historical LMR Provider 06/21/17 1 Becca Maciel MD [address] [place] [address] [facility] [place] [address] [email or web address] Historical LMR Provider 06/21/1701/16 Jocelin Del Castillo MD [address] [place] [address] [facility] [place] [address] Historical LMR Provider 06/21/17 01/16/21 Vargas Holt MD [address] [place] [address] Historical LMR Provider 06/21/17 Susan Bennett NP [address] [place] [address] Historical LMR Provider 06/21/17 Milena Estrella MD [address] [place] [address] [email or web address] Historical LMR Provider 06/21/17 01/16/21 Wallace Keyes DO [address] [place] [address] [email or web address] Insurance Assigned Provider 01/09/20 01/16/21 Wallace Keyes DO [address] [place] [address] [email or web address] Insurance Assigned Provider 12/10/23 documented as of this encounter Additional Source Comments The information contained in this document represents components of the legal health record. It is not the complete legal health record.[facility]
--- OUTSIDE RECORDS SUMMARY | 2025-07-29 15:13 | XMS_ITS | Encounter Summary ---
Author Organization [facility] Address [address] [facility] [address] [place] [address] Phone Care Team Providers Care Mid Level Net Developer Name Role Phone CindiWallace cates Primary Care Provider [phone] CindiWallace cates DO Unavailable Encounter Details Date Type Department Care Team (Late st Contact Info) Description 12/07/2023 Procedure Pass [facility] Endoscopy Admitting Dept Virtual Department [address] [place] [address] Social History Tobacco Use Types Packs/Day Years Used Date Smoking Tobacco: Former Cigarettes Q uit: 1993 Smokeless Tobacco: Never Comments:quit @ age 29 Alcohol Use Standard Drinks/Week Comments Yes 9 (1 standard drink = 0.6 oz pur e alcohol) 3 drinks 3 times per week Education Answer Date Recorded Are you interested in more education? Not on lia e 12/31/2022 Are you concerned about learning? Not on file 12/31/2022 No 12/31/2022 No 12/31/2022 Digital Access Answer Date Recorded No 01/29/2023 No 01/29/2023 Reliable internet access at home? Not on file 01/29/2023 Device with a working camera? Not on file Comments No Sex and Gender Information Value Date Recorded Sex Assigned at Female 03/24/2018 7:37 AM EDT Legal Sex Female 9:41 PM EDT Gender Identity Female 03/24/2018 7:37 AM EDT Sexual Orientation Not on file documented as of this encounter Plan of Treatment Not on file documented as of this encounter Visit Diagnoses Not on filedocumented in this encounter Care Teams Mid Level Net Developer Relationship Specialty Start Date End Date Wallace Keyes DO [email or web address] PCP - General Internal Medicine 02/18/22 Wallace Keyes DO [address] [place] [address] [email or web address] Insurance Assigned Provider 12/10/23 documented as of this encounter Additional Source Comments The information contained in this document represents components of the legal health record. It is not the complete legal health record.[facility]
--- OUTSIDE RECORDS SUMMARY | 2025-07-29 15:13 | XMS_ITS | Encounter Summary ---
Author Organization [facility] Address [address] [facility] [address] [place] [address] Phone Care Team Providers Care Jacquard Card Lacer Name Role Phone CindiWallace cates Primary Care Provider [phone] CindiWallace cates DO Unavailable Encounter Details Date Type Department Care Team (Late st Contact Info) Description 08/30/2023 Procedure Pass [facility] Endoscopy Admitting Dept Virtual Department [address] [place] [address] Social History Tobacco Use Types Packs/Day Years [...] on filedocumented in this encounter Care Teams Jacquard Card Lacer Relationship Specialty Start Date End Date Wallace Keyes DO [email or web address] PCP - General Internal Medicine 02/18/22 Wallace Keyes DO [address] [place] [address] [email or web address] Insurance Assigned Provider 12/10/23 documented as of this encounter Additional Source Comments The information contained in this document represents components of the legal health record. It is not the complete legal health record.[facility]
--- OUTSIDE RECORDS SUMMARY | 2025-07-29 15:13 | XMS_ITS | Encounter Summary ---
Author Organization [facility] Address [address] [place] [address] Phone Care Team Providers Care Kohinoor Operator Name Role Phone Wallace Keyes DO Primary Care Provider [phone] Wallace Keyes DO Unavailable Debbie Wilson GEOLOGICAL SAMPLE TESTER Unavailable Trey Cruz Unavailable Hina Jackson GEOLOGICAL SAMPLE TESTER Unavailable Silvestre Weems MD Unavailable Monica Hernandez MD Unavailable Dulce Maria Guerra GEOLOGICAL SAMPLE TESTER Unavailable Mookie Mary MD Unavailable Cassy Robert PA-C Unavailable Becca Maciel MD Unavailable Jocelin Del Castillo MD Unavailable Vargas Holt MD Unavailable [phone] Susan Bennett GEOLOGICAL SAMPLE TESTER Unavailable Milena Estrella MD Unavailable Wallace Keyes DO Unavailable Janell Dumont Primary Care Provider Wallace Keyes DO Primary Care Provider [phone] Wali Wallace Gaston Unavailable Encounter Details Date Type Department Care Team (Latest Contact Info) Description 03/12/2020 Transcribe Orders Virtual Department 30 [place] [address] Laura Dumont PA 6 [facility] [place] [address] [place] [address] Cough (Primary Dx); Exposure to SARS virus Social History Tobacco Use Types Packs/Day Years [...] documented as of this encounter Visit Diagnoses Diagnosis Cough- Primary Exposure to SARS virus Exposure to SARS-associated coronavirus documented in this encounter Additional Health Concerns Infection Onset Date Last Indicated Resolved Time MRSA Comment:Infection Loaded by the Load Infection Utility 08/31/2016 08/31/2016 10/20/2022 1:[address] CoV-Risk 03/12/2020 03/12/2020 03/26/2020 1:24 AM EDT documented as of this encounter Care Teams Kohinoor Operator Relationship Specialty Start Date End Date Wallace Keyes DO PCP - General 06/21/17 01/16/21 Janell Dumont PA [address] [place] [address] PCP - General Unknown Provider Specialty 01/17/21 02/17/22 Wallace Keyes DO [email or web address] PCP - General Internal Medicine 02/18/22 Wallace Keyes DO [address] [place] [address] [place] [address] [email or web address] Historical LMR Provider 06/21/17 01/16/21 Debbie Wilson NP [address] [place] [address] Historical LMR Provider 06/21/17 Trey Cruz PA [address] [place] [address] Historical LMR Provider 06/21/17 Hina Jackson GEOLOGICAL SAMPLE TESTER [address] [place] [address] Historical LMR Provider 06/21/17 Silvestre Weems MD [address] [place] [address] [email or web address] Historical LMR Provider 06/21/17 01/16/21 Monica Hernandez MD [address] [place] [address] Historical LMR Provider 06/21/17 Dulce Maria Guerra GEOLOGICAL SAMPLE TESTER 21 [place] [address] [email or web address] Historical LMR Provider 06/21/17 Mookie Mary MD 22 [facility], 2nd [place] [address] Historical LMR Provider 06/21/17 01/16/21 Cassy Robert PA-C [address] [place] [address] Orthopedics & Sports [facility], [place] [address] [email or web address] Historical LMR Provider 06/21/17 1 Becca Maciel MD [address] [place] [address] [facility], [place] [address] [email or web address] Historical LMR Provider 06/21/1701/16 Jocelin Del Castillo MD [address] [place] [address] [place] [address] [email or web address] Historical LMR Provider 06/21/17 01/16/21 Vargas Holt MD [address] [place] [address] Historical LMR Provider 06/21/17 Susan Bennett NP [address] [place] [address] Historical LMR Provider 06/21/17 Milena Estrella MD [address] [address] [email or web address] Historical LMR Provider 06/21/17 01/16/21 Wallace Keyes DO [address] [place] [address] [email or web address] Insurance Assigned Provider 01/09/20 01/16/21 Wallace Keyes DO [address] [place] [address] [email or web address] Insurance Assigned Provider 12/10/23 documented as of this encounter Additional Source Comments The information contained in this document represents components of the legal health record. It is not the complete legal health record.[facility]
--- OUTSIDE RECORDS SUMMARY | 2025-07-29 15:13 | XMS_ITS | Encounter Summary ---
Author Organization [facility] Address [address] [place] [address] Phone Care Team Providers Care Waste Disposal Leakage Tester Name Role Phone Wallace Keyes DO Primary Care Provider [phone] Wallace Keyes DO Unavailable Debbie Wilson TELETYPESETTER OPERATOR Unavailable Trey Cruz Unavailable Hina Jackson TELETYPESETTER OPERATOR Unavailable Silvestre Weems MD Unavailable Monica Hernandez MD Unavailable Dulce Maria Guerra TELETYPESETTER OPERATOR Unavailable Mookie Mary MD Unavailable Cassy Robert PA-C Unavailable Becca Maciel MD Unavailable Jocelin Del Castillo MD Unavailable Vargas Holt MD Unavailable [phone] Susan Bennett TELETYPESETTER OPERATOR Unavailable Milena Estrella MD Unavailable Wallace Keyes DO Unavailable Janell Dumont Primary Care Provider Wallace Keyes DO Primary Care Provider [phone] Wallace Keyes DO Unavailable Encounter Details Date Type Department Care Team (Late st Contact Info) Description 12/12/2018 Ancillary Orders Virtual Department 30 [place] [address] Wallace Keyes DO 179 [facility] [address] [place] [address] Breast screening Social History Tobacco Use Types [...] MAMMOGRAM SCREENING WITH TOMOSYNTHESIS WITH CAD (BILATERAL) (12/19/2018 1:39 PM EDT) Anatomical Region Laterality Modality Breast Left, Breast Right, Breast Bilateral Bila teral Mammography 12/20/2018 8:00 AM EDT Impressions 12/20/2018 8:05 AM EDT No mammographic change indicative of malignancy. Routine screening is recommended. BI-RADS CATEGORY: 2 - Benign finding. DENSITY: There are scattered fibroglandular densities. POS -[id number] Narrative 12/20/2018 8:05 AM EDT Bilateral full-field digital screening mammography is obtained and read in conjunction with computer-aided detection. Tomosynthesis as well as 2-D C view imaging of both breasts in two planes also obtained. Comparison made to multiple prior, most recent 01/06/2017, and most remote 07/06/2011. No dominant mass, architectural distortion, worrisome asymmetry, or suspicious calcification is identified. No skin or nipple finding of concern is appreciated. Asymmetries on the right demonstrate no worrisome change. Procedure Note Emma Mane MD - 12/20/2018 Bilateral full-field digital screening mammography is obtained and read inconjunction with computer-aided detection. Tomosynthesis as well as 2-D Cview imaging of both breasts in two planes also obtained. Comparison madeto multiple prior, most recent 01/06/2017, and most remote 07/06/2011. No dominant mass, architectural distortion, worrisome asymmetry, orsuspicious calcification is identified. No skin or nipple finding ofconcern is appreciated. Asymmetries on the right demonstrate no worrisomechange. IMPRESSION: No mammographic change indicative of malignancy. Routine screening isrecommended. BI-RADS CATEGORY: 2 - Benign finding. DENSITY: There are scattered fibroglandular densities. POS -[id number] Wallace Keyes DO IMG MG EXAMS Final [...] documented as of this encounter Care Teams Waste Disposal Leakage Tester Relationship Specialty Start Date End Date Wallace Keyes DO PCP - General 06/21/17 01/16/21 Janell Dumont PA [address] [place] [address] PCP - General Unknown Provider Specialty 01/17/21 02/17/22 Wallace Keyes DO [email or web address] PCP - General Internal Medicine 02/18/22 Wallace Keyes DO [address] [place] [address] [email or web address] Historical LMR Provider 06/21/17 01/16/21 Debbie Wilson NP [address] [place] [address] Historical LMR Provider 06/21/17 Trey Cruz PA [address] [place] [address] Historical LMR Provider 06/21/17 Hina Jackson NP [address] [place] [address] Historical LMR Provider 06/21/17 Silvestre Weems MD [address] [place] [address] [email or web address] Historical LMR Provider 06/21/17 01/16/21 Monica Hernandez MD [address] [place] [address] Historical LMR Provider 06/21/17 Dulce Maria Guerra TELETYPESETTER OPERATOR [address] [place] [address] [email or web address] Historical LMR Provider 06/21/17 Mookie Mary MD 22 [facility], 2nd [place] [address] [email or web address] Historical LMR Provider 06/21/17 01/16/21 Cassy Robert PA-C [address] [place] [address] Orthopedics & Sports [facility], [place] [address] [email or web address] Historical LMR Provider 06/21/17 1 Becca Maciel MD [address] [place] [address] Orthopedics [facility], [place] [address] [email or web address] Historical LMR Provider 06/21/1701/16 Jocelin Del Castillo MD [address] [place] [address] Orthoped[facility], [place] [address] [email or web address] Historical LMR Provider 06/21/17 01/16/21 Vargas Holt MD [address] [place] [address] Historical LMR Provider 06/21/17 Susan Bennett NP [address] [place] [address] Historical LMR Provider 06/21/17 Milena Estrella MD [address] [address] [email or web address] Historical LMR Provider 06/21/17 01/16/21 Wallace Keyes DO [address] [place] [address] Insurance Assigned Provider 01/09/20 01/16/21 Wallace Keyes DO [address] [place] [address] Insurance Assigned Provider 12/10/23 documented as of this encounter Additional Source Comments The information contained in this document represents components of the legal health record. It is not the complete legal health record.[facility]
--- OUTSIDE RECORDS SUMMARY | 2025-07-29 15:13 | XMS_ITS | Encounter Summary ---
Author Organization [facility] Address [address] [place] [address] Phone Care Team Providers Care Golf Club Facer Name Role Phone Wallace Keyes DO Primary Care Provider [phone] Wallace Keyes DO Unavailable Debbie Wilson SUPERVISOR GRADING Unavailable Trey Cruz Unavailable Hina Jackson SUPERVISOR GRADING Unavailable Silvestre Weems MD Unavailable Monica Hernandez MD Unavailable Dulce Maria Guerra SUPERVISOR GRADING Unavailable Mookie Mary MD Unavailable Cassy Robert PA-C Unavailable Becca Maciel MD Unavailable Jocelin Del Castillo MD Unavailable Vragas Holt MD Unavailable [phone] Susan Bennett SUPERVISOR GRADING Unavailable Milena Estrella MD Unavailable Wallace Keyes DO Unavailable Janell Dumont Primary Care Provider Wallace Keyes DO Primary Care Provider [phone] Wallace Keyes DO Unavailable Encounter Details Date Type Department Care Team (Late st Contact Info) Description 03/18/2020 Transcribe Orders Virtual Department 30 [place] [address] Wallace Keyes DO 179 [facility] [place] [address] [place] [address] [email or web address] Paresthesia (Primary Dx) Social History Tobacco Use Types [...] as of this encounter Results * XR CERVICAL SPINE 4-5 VIEWS (03/20/2020 2:43 PM EDT) Anatomical Region Laterality Modality C-spine Computed Radiogr aphy 03/20/2020 2:45 PM EDT Impressions 03/20/2020 2:50 PM EDT 1. Straightening of the cervical lordosis could be due to spasm. 2. Mild-moderate degenerative disc and endplate changes at C5-C6 and C6-C7. 3. Moderate neuroforaminal narrowing at C5-C6 and C6-C7 on the right. POS - [id number] Narrative 03/20/2020 2:50 PM EDT HISTORY: Numbness and paresthesias, cervical pain for 2 months. COMPARISON: MRI cervical spine 03/27/2014. VIEWS: AP, lateral, bilateral foraminal and open-mouth odontoid views. FINDINGS: Non-fusion of the posterior arch of C1, likely a normal variant. Straightening of the cervical lordosis. Mild-moderate disc space narrowing and degenerative endplate changes at C5-C6 and C6-C7, mildly progressed from 03/27/2014. No subluxations. Moderate narrowing of the right neuroforamina at C5 C5-C6 and C6-C7 Prevertebral soft tissues are normal. Procedure Note Woo Wolf MD - 03/20/2020 HISTORY: Numbness and paresthesias, cervical pain for 2 months. COMPARISON: MRI cervical spine 03/27/2014. VIEWS: AP, lateral, bilateral foraminal and open-mouth odontoid views. FINDINGS: Non-fusion of the posterior arch of C1, likely a normal variant. Straightening of the cervical lordosis. Mild-moderate disc space narrowingand degenerative endplate changes at C5-C6 and C6-C7, mildly progressedfrom 03/27/2014. No subluxations. Moderate narrowing of the right neuroforamina at C5 C5-C6 and C6-C7 Prevertebral soft tissues are normal. IMPRESSION: 1. Straightening of the cervical lordosis could be due to spasm. 2. Mild-moderate degenerative disc and endplate changes at C5-C6 andC6-C7. 3. Moderate neuroforaminal narrowing at C5-C6 and C6-C7 on the right. POS - [id number] us Wallace Keyes DO IMG XR SPINE Final Result documented in this encounter Visit Diagnoses Diagnosis Paresthesia- Primary Disturbance of skin sensation Paresthesia Disturbance of skin sensation documented in this encounter Additional Health Concerns Infection Onset Date Last Indicated Resolved Time MRSA Comment:Infection Loaded by the Load Infection Utility 08/31/2016 08/31/2016 10/20/2022 1:[address] CoV-Risk 03/12/2020 03/12/2020 03/26/2020 1:24 AM EDT documented as of this encounter Care Teams Golf Club Facer Relationship Specialty Start Date End Date Wallace Keyes DO [email or web address] PCP - General 06/21/17 01/16/21 Janell Dumont PA [address] [place] [address] PCP - General Unknown Provider Specialty 01/17/21 02/17/22 Wallace Keyes DO PCP - General Internal Medicine 02/18/22 Wallace Keyes DO [address] [place] [address] [place] [address] [email or web address] Historical LMR Provider 06/21/17 01/16/21 Debbie Wilson NP [address] [place] [address] Historical LMR Provider 06/21/17 Trey Cruz PA [address] [place] [address] Historical LMR Provider 06/21/17 Hina Jackson NP [address] [place] [address] Historical LMR Provider 06/21/17 Silvestre Weems MD [address] [place] [address] [email or web address] Historical LMR Provider 06/21/17 01/16/21 Monica Hernandez MD [address] [place] [address] Historical LMR Provider 06/21/17 Dulce Maria Guerra NP 21 [place] [address] [email or web address] Historical LMR Provider 06/21/17 Mookie Mary MD [address] [place] [address], [address] [place] [address] Historical LMR Provider 06/21/17 01/16/21 Cassy Robert PA-C [address] [place] [address] Orthopedics Sports [facility], [place] [address] [email or web address] Historical LMR Provider 06/21/17 1 Becca Maciel MD [address] [place] [address] Orthopedics Sports [facility], [place] [address] Historical LMR Provider 06/21/1701/16 Jocelin Del Castillo MD [address] [place] [address] Orthopedics Sports [facility], [place] [address] Historical LMR Provider 06/21/17 01/16/21 Vargas Holt MD [address] [place] [address] Historical LMR Provider 06/21/17 Susan Bennett NP [address] [place] [address] Historical LMR Provider 06/21/17 Milena Estrella MD [address] [address] [email or web address] Historical LMR Provider 06/21/17 01/16/21 Wallace Keyes DO [address] [place] [address] Insurance Assigned Provider 01/09/20 01/16/21 Wallace Keyes DO [address] [place] [address] Insurance Assigned Provider 12/10/23 documented as of this encounter Additional Source Comments The information contained in this document represents components of the legal health record. It is not the complete legal health record.[facility]
--- OUTSIDE RECORDS SUMMARY | 2025-07-29 15:13 | XMS_ITS | Encounter Summary ---
Author Organization [facility] Address [address] [facility] [address] [place] [address] Phone Care Team Providers Care Grain Spouter Name Role Phone CindiWallace cates Primary Care Provider [phone] CindiWallace cates DO Unavailable Encounter Details Date Type Department Care Team (Late st Contact Info) Description 07/14/2023 Procedure Pass [facility] Endoscopy Admitting Dept Virtual Department 30 [place] [address] Social History Tobacco Use Types Packs/Day Years Used Date Smoking Tobacco: Former Cigarettes Q uit: 1993 Smokeless Tobacco: Never Comments:quit @ age 29 Alcohol Use Standard Drinks/Week Comments Not Currently 9 (1 standard drink = 0.6 oz [...] on filedocumented in this encounter Care Teams Grain Spouter Relationship Specialty Start Date End Date Wallace Keyes DO [email or web address] PCP - General Internal Medicine 02/18/22 Wallace Keyes DO [address] [place] [address] [email or web address] Insurance Assigned Provider 12/10/23 documented as of this encounter Additional Source Comments The information contained in this document represents components of the legal health record. It is not the complete legal health record.[facility]
--- OUTSIDE RECORDS SUMMARY | 2025-07-29 15:13 | XMS_ITS | Encounter Summary ---
Author Organization [facility] Address [address] [facility] [address] [place] [address] Phone Care Team Providers Care Outbound Telemarketer Name Role Phone CindiWallace cates Primary Care Provider [phone] CindiWallace cates Unavailable Encounter Details Date Type Department Care Team (Late st Contact Info) Description 04/16/2024 Procedure Pass [facility] Endoscopy Admitting Dept Virtual Department 30 [place] [address] Social History Tobacco Use Types Packs/Day Years [...] as food, clothing, or medical care? No 02/02/2024 In the past 12 months have y ou been in a relationship with a person who hurts, threatens, or tries to control you? No 02/02/2024 Are you denied basic needs s uch as food, clothing, or medical care? No 02/02/2024 In the past 12 months have y ou been in a relationship with a person who hurts, threatens, or tries to control you? No 02/02/2024 Comments No Sex and Gender Information Value Date Recorded Sex Assigned at Female 03/24/2018 7:37 AM EDT Legal Sex Female 9:41 PM EDT Gender Identity Female 03/24/2018 7:37 AM EDT Sexual Orientation Not on file documented as of this encounter Plan of Treatment Not on file documented as of this encounter Visit Diagnoses Not on filedocumented in this encounter Care Teams Outbound Telemarketer Relationship Specialty Start Date End Date Wallace Keyes DO [email or web address] PCP - General Internal Medicine 02/18/22 Wallace Keyes DO [address] [place] [address] [email or web address] Insurance Assigned Provider 12/10/23 documented as of this encounter Additional Source Comments The information contained in this document represents components of the legal health record. It is not the complete legal health record.[facility]
--- OUTSIDE RECORDS SUMMARY | 2025-07-29 15:13 | XMS_ITS | Encounter Summary ---
Author Organization [facility] Address [address] [place] [address] Phone Care Team Providers Care Production Team Manager Name Role Phone Wallace Keyes DO Primary Care Provider [phone] Wallace Keyes DO Unavailable Debbie Wilson EMBOSSING PRESS OPERATOR Unavailable Trey Cruz Unavailable Hina Jackson EMBOSSING PRESS OPERATOR Unavailable Silvestre Weems MD Unavailable Monica Hernandez MD Unavailable Ducle Maria Guerra EMBOSSING PRESS OPERATOR Unavailable Mookie Mary MD Unavailable Cassy Robert PA-C Unavailable Becca Maciel MD Unavailable Jocelin Del Castillo MD Unavailable Vargas Holt MD Unavailable [phone] Susan Bennett EMBOSSING PRESS OPERATOR Unavailable Milena Estrella MD Unavailable Wallace Keyes DO Unavailable Janell Dumont Primary Care Provider Wallace Keyes Gaston Primary Care Provider [phone] WaliWallace Unavailable Encounter Details Date Type Department Care Team (Late st Contact Info) Description 10/31/2017 Procedure Pass [facility] Endoscopy Admitting Dept [facility] Department [address] [place] [address] Social History Tobacco Use Types Packs/Day Years Used Date Smoking Tobacco: Never Smokeless Tobacco: Never Alcohol Use Standard Drinks/Week Comments Yes 10 [...] documented as of this encounter Care Teams Production Team Manager Relationship Specialty Start Date End Date Wallace Keyes DO PCP - General 06/21/17 01/16/21 Janell Dumont PA [address] [place] [address] PCP - General Unknown Provider Specialty 01/17/21 02/17/22 Wallace Keyes DO PCP - General Internal Medicine 02/18/22 Wallace Keyes DO [address] [place] [address], [place] [address] [email or web address] Historical LMR Provider 06/21/17 01/16/21 Debbie Wilson NP [address] [address] Historical LMR Provider 06/21/17 Trey Cruz PA [address] [place] [address] Historical LMR Provider 06/21/17 Hina Jackson NP [address] [place] [address] Historical LMR Provider 06/21/17 Silvestre Weems MD [address] [place] [address] [email or web address] Historical LMR Provider 06/21/17 01/16/21 Monica Hernandez MD [address] [place] [address] Historical LMR Provider 06/21/17 Dulce Maria Guerra NP 21 [place] [address] [email or web address] Historical LMR Provider 06/21/17 Mookie Mary MD [address] [place] [address] Historical LMR Provider 06/21/17 01/16/21 Cassy Robert PA-C [address] [place] [address] Orthopedics Sports [facility], [place] [address] Historical LMR Provider 06/21/17 1 Becca Maciel MD [address] [place] [address] [facility], [place] [address] [email or web address] Historical LMR Provider 06/21/1701/16 Jocelin Del Castillo MD [address] [place] [address] [facility] [address] Historical LMR Provider 06/21/17 01/16/21 Vargas Holt MD [address] [place] [address] Historical LMR Provider 06/21/17 Susan Bennett NP [address] [place] [address] Historical LMR Provider 06/21/17 Milena Estrella MD [address] [place] [address] [email or web address] Historical LMR Provider 06/21/17 01/16/21 Wallace Keyes DO [address] [place] [address] [email or web address] Insurance Assigned Provider 01/09/20 01/16/21 Wallace Keyes DO [address] [place] [address] [email or web address] Insurance Assigned Provider 12/10/23 documented as of this encounter Additional Source Comments The information contained in this document represents components of the legal health record. It is not the complete legal health record.[facility]
--- OUTSIDE RECORDS SUMMARY | 2025-07-29 15:14 | XMS_ITS | Encounter Summary ---
Author Organization [facility] Address [address] [place] [address] Phone Care Team Providers Care Black Puller Name Role Phone Wallace Keyes DO Primary Care Provider [phone] Wallace Keyes DO Unavailable Debbie Wilson POST TENSIONING IRONWORKER Unavailable Trey Cruz Unavailable Hina Jackson POST TENSIONING IRONWORKER Unavailable Silvestre Weems MD Unavailable Monica Hernandez MD Unavailable Dulce Maria Guerra POST TENSIONING IRONWORKER Unavailable Mookie Mary MD Unavailable Cassy Robert PA-C Unavailable Becca Maciel MD Unavailable Jocelin Del Castillo MD Unavailable Vargas Holt MD Unavailable [phone] Susan Bennett POST TENSIONING IRONWORKER Unavailable Milena Estrella MD Unavailable Wallace Keyes DO Unavailable Janell Dumont Primary Care Provider Wallace Keyes DO Primary Care Provider [phone] Wallace Keyes DO Unavailable Encounter Details Date Type Department Care Team (Latest Contact Info) Description 01/15/2021 Transcribe Orders Virtual Department 30 [place] [address] Laura Dumont PA 6 [facility] [place] [address] [place] [address] Other chest pain (Primary Dx) Social History Tobacco Use Types [...] on file documented as of this encounter Functional Status * Calculated C-SSRS Risk Score (Lifetime/Recent) Answer Date of Assessment Author No Risk Indicated 01/17/2021 8:19 AM EDT Sabra Guillen RN * [place] Suicide Severity Rating Scale (Screener/Recent Self-Report) Question Answer Date of Assessment Author 1. Wish to be (Past 1 Month) No 021 8:19 AM EDT Sabra Guillen RN 2. Non-Specific Active Suici isauro Thoughts (Past 1 Month) No 01/17/2021 8:19 AM EDT Cecilia Guillen RN 6. Suicidal Behavior (Lifetime) No 8:19 AM EDT Sabra Guillen RN documented as of this encounter Plan of Treatment Not on file documented as of this encounter Visit Diagnoses Diagnosis Other chest pain- Primary documented in this encounter Additional Health Concerns Infection Onset Date Last Indicated Resolved Time MRSA Comment:Infection Loaded by the Load Infection Utility 08/31/2016 08/31/2016 10/20/2022 1:[address] documented as of this encounter Care Teams Black Puller Relationship Specialty Start Date End Date Wallace Keyes DO PCP - General 06/21/17 01/16/21 Janell Dumont PA [address] [place] [address] PCP - General Unknown Provider Specialty 01/17/21 02/17/22 Wallace Keyes DO PCP - General Internal Medicine 02/18/22 Wallace Keyes DO [address] [place] [address] Historical LMR Provider 06/21/17 01/16/21 Debbie Wilson NP [address] [place] [address] Historical LMR Provider 06/21/17 Trey Cruz PA [address] [place] [address] Historical LMR Provider 06/21/17 Hina Jackson NP [address] [place] [address] Historical LMR Provider 06/21/17 Silvestre Weems MD [address] [place] [address] [email or web address] Historical LMR Provider 06/21/17 01/16/21 Monica Hernandez MD [facility]3 [place] [address] Historical LMR Provider 06/21/17 Dulce Maria Guerra NP 21 [place] [address] [email or web address] Historical LMR Provider 06/21/17 Mookie Mary MD [address] [address] Historical LMR Provider 06/21/17 01/16/21 Cassy Robert PA-C [address] [place] [address] [facility], [place] [address] Historical LMR Provider 06/21/17 1 Becca Maciel MD [address] [place] [address] Orthopedics & [facility], [place] [address] Historical LMR Provider 06/21/1701/16 Jocelin Del Castillo MD [address] [place] [address] [facility], [place] [address] Historical LMR Provider 06/21/17 01/16/21 Vargas Holt MD [address] [place] [address] Historical LMR Provider 06/21/17 Susan Bennett NP [address] [place] [address] Historical LMR Provider 06/21/17 Milena Estrella MD [address] [place] [address] [email or web address] Historical LMR Provider 06/21/17 01/16/21 Wallace Keyes DO [address] [place] [address] Insurance Assigned Provider 01/09/20 01/16/21 Wallace Keyes DO [address] [place] [address] Insurance Assigned Provider 12/10/23 documented as of this encounter Additional Source Comments The information contained in this document represents components of the legal health record. It is not the complete legal health record.[facility]
--- OUTSIDE RECORDS SUMMARY | 2025-07-29 15:14 | XMS_ITS | Encounter Summary ---
Author Organization [facility] Address [address] [facility] [address] [place] [address] Phone Care Team Providers Care Toppiece Cutter Name Role Phone CindiWallace cates Primary Care Provider [phone] CindiWallace cates Unavailable Encounter Details Date Type Department Care Team (Late st Contact Info) Description 10/17/2024 Procedure Pass [facility] Endoscopy Admitting Dept Virtual Department 30 [place] [address] Social History Tobacco Use Types Packs/Day Years [...] on filedocumented in this encounter Care Teams Toppiece Cutter Relationship Specialty Start Date End Date Wallace Keyes DO [email or web address] PCP - General Internal Medicine 02/18/22 Wallace Keyes DO [address] [place] [address] [email or web address] Insurance Assigned Provider 12/10/23 documented as of this encounter Additional Source Comments The information contained in this document represents components of the legal health record. It is not the complete legal health record.[facility]
--- OUTSIDE RECORDS SUMMARY | 2025-07-29 15:14 | XMS_ITS | Encounter Summary ---
Author Organization [facility] Address [address] [facility] [address] [place] [address] Phone Care Team Providers Care It Operations Specialist Name Role Phone CindiWallace cates Primary Care Provider [phone] CindiWallace cates DO Unavailable Encounter Details Date Type Department Care Team (Late st Contact Info) Description 02/02/2024 Procedure Pass [facility] Endoscopy Admitting Dept Virtual Department 30 [place] [address] Social History Tobacco Use Types Packs/Day Years Used Date Smoking Tobacco: Former Cigarettes Q uit: 1993 Smokeless Tobacco: Never Comments:quit @ age 29 Alcohol Use Standard Drinks/Week Comments Yes 4 (1 standard drink = 0.6 oz pur e alcohol) 2 drinks 2-3 times per week Education Answer Date Recorded Are you interested in more education? Not on lai e 12/31/2022 Are you concerned about learning? [...] on filedocumented in this encounter Care Teams It Operations Specialist Relationship Specialty Start Date End Date Wallace Keyes DO [email or web address] PCP - General Internal Medicine 02/18/22 Wallace Keyes DO [address] [place] [address] Insurance Assigned Provider 12/10/23 documented as of this encounter Additional Source Comments The information contained in this document represents components of the legal health record. It is not the complete legal health record.[facility]
--- OUTSIDE RECORDS SUMMARY | 2025-07-29 15:14 | XMS_ITS | Encounter Summary ---
Author Organization [facility] Address [address] [email or web address] [facility] [address] [place] [address] Phone Care Team Providers Care Senior Account Director Name Role Phone Wallace Keyes DO Primary Care Provider [phone] Wallace Keyes DO Unavailable Encounter Details Date Type Department Care Team (Latest Contact Info) Description 04/08/2023 Transcribe Orders Virtual Department 30 [place] [address] Laura Dumont PA 6 [facility] [place] [address] Fatty (change of) liver, not elsewhere classified (Primary Dx) Social History Tobacco Use Types Packs/Day Years Used Date Smoking Tobacco: Former Smokeless Tobacco: Never Comments:quit @ age 29 Alcohol Use Standard Drinks/Week Comments Yes 10 (1 standard drink = 0.6 oz pu re alcohol) Education Answer Date Recorded Are you interested [...] as of this encounter Visit Diagnoses Diagnosis Fatty (change of) liver, not elsewhere classified- Primary documented in this encounter Care Teams Senior Account Director Relationship Specialty Start Date End Date Wallace Keyes DO [email or web address] PCP - General Internal Medicine 02/18/22 Wallace Keyes DO [address] [place] [address] Insurance Assigned Provider 12/10/23 documented as of this encounter Additional Source Comments The information contained in this document represents components of the legal health record. It is not the complete legal health record.[facility]
--- OUTSIDE RECORDS SUMMARY | 2025-07-29 15:14 | XMS_ITS | Encounter Summary ---
Author Organization [facility] Address [address] [place] [address] [place] [address] Phone Care Team Providers Care Greaser Operator Name Role Phone Wallace Keyes DO Primary Care Provider [phone] Wallace Keyes DO Unavailable Encounter Details Date Type Department Care Team (Late st Contact Info) Description 05/02/2023 Prep for Surgery [facility] Medicine [address] [place] [address] Jocelin Del Castillo MD [address] [place] [address] Orthopedics & Sports Medicine, [place] [address] [email or web address] Social History Tobacco Use Types Packs/Day Years [...] on filedocumented in this encounter Care Teams Greaser Operator Relationship Specialty Start Date End Date Wallace Keyes DO [email or web address] PCP - General Internal Medicine 02/18/22 Wallace Keyes DO [address] [place] [address] [email or web address] Insurance Assigned Provider 12/10/23 documented as of this encounter Additional Source Comments The information contained in this document represents components of the legal health record. It is not the complete legal health record.[facility]
--- OUTSIDE RECORDS SUMMARY | 2025-07-29 15:14 | XMS_ITS | Encounter Summary ---
Author Organization [facility] Address [address] [facility] [address] [place] [address] Phone Care Team Providers Care Groover Operator Name Role Phone CindiWallace cates Primary Care Provider [phone] Wallace Keyes DO Unavailable Encounter Details Date Type Department Care Team (Late st Contact Info) Description 05/25/2023 Procedure Pass [place] Admitting Dept - Virtual Department 30 [place] [address] Social History Tobacco Use Types Packs/Day Years [...] Date of Assessment Author No Risk Indicated 05/25/2023 9:20 AM EDT Hilda Choi RN * [place] Suicide Severity Rating Scale (Screener/Recent Self-Report) Question Answer Date of Assessment Author 2. Non-Specific Active Suici isauro Thoughts (Past 1 Month) No 05/25/2023 9:20 AM EDT Ruby Borges RN documented as of this encounter Plan of Treatment Not on file documented as of this encounter Visit Diagnoses Not on filedocumented in this encounter Care Teams Groover Operator Relationship Specialty Start Date End Date Wallace Keyes DO PCP - General Internal Medicine 02/18/22 Wallace Keyes DO [address] [place] [address] Insurance Assigned Provider 12/10/23 documented as of this encounter Additional Source Comments The information contained in this document represents components of the legal health record. It is not the complete legal health record.[facility]
--- OUTSIDE RECORDS SUMMARY | 2025-07-29 15:14 | XMS_ITS | Encounter Summary ---
Author Organization [facility] Address [address] [place] [address] Phone Care Team Providers Care C Java Developer Name Role Phone CindiWallace cates Primary Care Provider [phone] CindiWallace cates Unavailable Reason for Referral * Outpatient Procedure - Closed Specialty Diagnoses / Procedures Referred By Dameon jacob Referred To Contact Radiology Diagnoses Chest pain, non-cardiac Nausea Chronic GERD Epigastric pain Bloating Procedures NM Cholescintigraphy with Pharmacological Intervention An Ho NP [address] [place] [address] Phone: tel: fax: Referral ID Status Reason Start Date Expiration Date Visits Re quested Visits Authorized [id number] Closed 04/19/2023 1 1 Encounter Details Date Type Department Care Team (Latest Contact Info) Description 04/19/2023 Transcribe Orders Virtual Department 30 [place] [address] An Ho NP [address] [place] [address] Chest pain, non-cardiac (Primary Dx); Nausea; Chronic GERD; Epigastric pain; Bloating Social History Tobacco Use Types Packs/Day Years [...] documented as of this encounter Results * NM Cholescintigraphy with Pharmacological Intervention (05/20/2023 11:29 AM EDT) Anatomical Region Laterality Modality Abdomen, Biliary Nuclear Medicin e 05/20/2023 12:0 5 PM EDT Impressions 05/20/2023 12:17 PM EDT No scintigraphic evidence of biliary dyskinesia. Narrative 05/20/2023 12:17 PM EDT NM CHOLESCINTIGRAPHY WITH PHARMACOLOGICAL INTERVENTION Radionuclide Hepatobiliary scan: COMPARISON: None HISTORY: Noncardiac chest pain TECHNIQUE: Following intravenous ministration of 5.0 mCi of technetium 99m mebrofenin and anterior radionuclide angiogram of the liver was obtained followed by anterior static 3 minute images out to approximately one hour. This was followed by 2 minute anterior images obtained out to 58 minutes during slow intravenous ministration of 1.8 mcg of CCK. Patient reportedly did not describe symptoms during CCK infusion. FINDINGS: Radionuclide and scanning this is prompt and grossly physiologic hepatic perfusion. Sequential static images disclose prompt uptake of tracer by the hepatic parenchyma with biliary activity seen by 9-12 minutes and with adequate washout of residual activity from the hepatic parenchyma with time. No evidence of bile reflux. Following CCK administration a time/activity curve was generated over the gallbladder revealing an ejection fraction of approximately 92%. Procedure Note Landon Alvarado MD - 05/20/2023 NM CHOLESCINTIGRAPHY WITH PHARMACOLOGICAL INTERVENTION Radionuclide Hepatobiliary scan: COMPARISON: None HISTORY: Noncardiac chest pain TECHNIQUE: Following intravenous ministration of 5.0 mCi of technetium 99m mebrofeninand anterior radionuclide angiogram of the liver was obtained followed byanterior static 3 minute images out to approximately one hour. This wasfollowed by 2 minute anterior images obtained out to 58 minutes duringslow intravenous ministration of 1.8 mcg of CCK. Patient reportedly didnot describe symptoms during CCK infusion. FINDINGS: Radionuclide and scanning this is prompt and grossly physiologic hepaticperfusion. Sequential static images disclose prompt uptake of tracer bythe hepatic parenchyma with biliary activity seen by 9-12 minutes and withadequate washout of residual activity from the hepatic parenchyma withtime. No evidence of bile reflux. Following CCK administration a time/activity curve was generated over thegallbladder revealing an ejection fraction of approximately 92%. IMPRESSION: No scintigraphic evidence of biliary dyskinesia. An Ho WEBSITE PROJECT MANAGER IMG NM ABDOMEN Final Res ult documented in this encounter Visit Diagnoses Diagnosis Chest pain, non-cardiac- Primary Other chest pain Nausea Nausea alone Chronic GERD Epigastric pain Abdominal pain, epigastric Bloating Flatulence, eructation, and gas pain Chest pain, non-cardiac Other chest pain Nausea Nausea alone Chronic GERD Epigastric pain Abdominal pain, epigastric Bloating Flatulence, eructation, and gas pain documented in this encounter Care Teams C Java Developer Relationship Specialty Start Date End Date Wallace Keyes DO [email or web address] PCP - General Internal Medicine 02/18/22 Wallace Keyes DO [address] [place] [address] [email or web address] Insurance Assigned Provider 12/10/23 documented as of this encounter Additional Source Comments The information contained in this document represents components of the legal health record. It is not the complete legal health record.[facility]
--- OUTSIDE RECORDS SUMMARY | 2025-07-29 15:14 | XMS_ITS | Encounter Summary ---
Author Organization [facility] Address [address] [place] [address] [place] [address] Phone Care Team Providers Care Car Hop Name Role Phone CindiWallace cates Primary Care Provider [phone] Wallace Keyes DO Unavailable Encounter Details Date Type Department Care Team (Late st Contact Info) Description 05/04/2023 Procedure Pass [place] Admitting Dept - Virtual Department 30 [place] [address] Social History Tobacco Use Types Packs/Day Years [...] on filedocumented in this encounter Care Teams Car Hop Relationship Specialty Start Date End Date Wallace Keyes DO ([email or web address] PCP - General Internal Medicine 02/18/22 Wallace Keyes DO 179 [place] [address] [email or web address] Insurance Assigned Provider 12/10/23 documented as of this encounter Additional Source Comments The information contained in this document represents components of the legal health record. It is not the complete legal health record.[facility]
--- OUTSIDE RECORDS SUMMARY | 2025-07-29 15:14 | XMS_ITS | Encounter Summary ---
Author Organization [facility] Address [address] [place] [address] Phone Care Team Providers Care Diver Tender Name Role Phone Wallace Keyes DO Primary Care Provider [phone] Wallace Keyes DO Unavailable Debbie Wilson SENIOR WATER/WASTEWATER ENGINEER Unavailable Trey Cruz Unavailable Hina Jackson SENIOR WATER/WASTEWATER ENGINEER Unavailable Silvestre Weems MD Unavailable Monica Hernandez MD Unavailable Dulce Maria Guerra SENIOR WATER/WASTEWATER ENGINEER Unavailable Mookie Mary MD Unavailable Cassy Robert PA-C Unavailable Becca Maciel MD Unavailable Jocelin Del Castillo MD Unavailable Vargas Holt MD Unavailable [phone] Susan Bennett SENIOR WATER/WASTEWATER ENGINEER Unavailable Milena Estrella MD Unavailable Wallace Keyes DO Unavailable Janell Dumont Primary Care Provider CindiWallace cates DO Primary Care Provider [phone] Wallace Keyes DO Unavailable Encounter Details Date Type Department Care Team (Late st Contact Info) Description 03/25/2020 Transcribe Orders Virtual Department [address] [place] [address] CindiWallace cates DO 179 [facility] [place] [address] [place] [address] [email or web address] Radiculopathy, lumbar region (Primary Dx) Social History Tobacco Use Types [...] as of this encounter Visit Diagnoses Diagnosis Radiculopathy, lumbar region- Primary Thoracic or lumbosacral neuritis or radiculitis, unspecified documented in this encounter Additional Health Concerns Infection Onset Date Last Indicated Resolved Time MRSA Comment:Infection Loaded by the Load Infection Utility 08/31/2016 08/31/2016 10/20/2022 1:[address] CoV-Risk 03/12/2020 03/12/2020 03/26/2020 1:24 AM EDT documented as of this encounter Care Teams Diver Tender Relationship Specialty Start Date End Date Wallace Keyes DO PCP - General 06/21/17 01/16/21 Janell Dumont PA [address] [place] [address] PCP - General Unknown Provider Specialty 01/17/21 02/17/22 Wallace Keyes DO PCP - General Internal Medicine 02/18/22 Wallace Keyes DO [address] [place] [address] [email or web address] Historical LMR Provider 06/21/17 01/16/21 Debbie Wilson NP [address] [place] [address] Historical LMR Provider 06/21/17 Trey Cruz PA [address] [place] [address] Historical LMR Provider 06/21/17 Hina Jackson SENIOR WATER/WASTEWATER ENGINEER [address] [place] [address] Historical LMR Provider 06/21/17 Silvestre Weems MD [address] [place] [address] [email or web address] Historical LMR Provider 06/21/17 01/16/21 Monica Hernandez MD [address] [place] [address] Historical LMR Provider 06/21/17 Dulce Maria Guerra SENIOR WATER/WASTEWATER ENGINEER [address] [place] [address] [email or web address] Historical LMR Provider 06/21/17 Mookie Mary MD 22 [facility] [address] [place] [address] Historical LMR Provider 06/21/17 01/16/21 Cassy Robert PA-C [address] [place] [address] [place] [address] [email or web address] Historical LMR Provider 06/21/17 1 Becca Maciel MD [address] [place] [address] [place] [address] [email or web address] Historical LMR Provider 06/21/1701/16 Jocelin Del Castillo MD [address] [place] [address] [facility] [place] [place] [address] [email or web address] Historical LMR Provider 06/21/17 01/16/21 Vargas Holt MD [address] [place] [address] Historical LMR Provider 06/21/17 Susan Bennett NP [address] [place] [address] Historical LMR Provider 06/21/17 Milena Estrella MD [address] [place] [address] [email or web address] Historical LMR Provider 06/21/17 01/16/21 Wallace Keyes DO [address] [place] [address] Insurance Assigned Provider 01/09/20 01/16/21 Wallace Keyes DO [address] [place] [address] Insurance Assigned Provider 12/10/23 documented as of this encounter Additional Source Comments The information contained in this document represents components of the legal health record. It is not the complete legal health record.[facility]
--- OUTSIDE RECORDS SUMMARY | 2025-07-29 15:14 | XMS_ITS | Encounter Summary ---
Author Organization [facility] Address [address] [place] [address] Phone Care Team Providers Care Manager Product Design Name Role Phone Janell Dumont Primary Care Provider Wallace Keyes DO Primary Care Provider [phone] Wallace Keyes DO Unavailable Encounter Details Date Type Department Care Team (Late st Contact Info) Description 01/19/2021 Transcribe Orders Virtual Department [address] [place] [address] Wallace Keyes DO [address] [facility] [place] [address] [email or web address] Radiculopathy, lumbosacral region (Primary Dx) Social History Tobacco Use [...] of this encounter Visit Diagnoses Diagnosis Radiculopathy, lumbosacral region- Primary Thoracic or lumbosacral neuritis or radiculitis, unspecified documented in this encounter Additional Health Concerns Infection Onset Date Last Indicated Resolved Time MRSA Comment:Infection Loaded by the Load Infection Utility 08/31/2016 08/31/2016 10/20/2022 1:[address] documented as of this encounter Care Teams Manager Product Design Relationship Specialty Start Date End Date Janell Dumont PA [address] [facility] [address] [place] [address] PCP - General Unknown Provider Specialty 01/17/21 02/17/22 Wallace Keyes DO [address] [facility] [address] [place] [address] PCP - General Internal Medicine 02/18/22 Wallace Keyes DO [address] [facility] [place] [address] Insurance Assigned Provider 12/10/23 documented as of this encounter Additional Source Comments The information contained in this document represents components of the legal health record. It is not the complete legal health record.[facility]
== END 2025-07-29 11:26 | disposition home or self-care (01) ==
LOC: HO.XRAY 11:25
PROVIDERS: PCP Physician Assistant; Visit Provider Physician Assistant
DX: R05.1 Acute cough (principal)
CPT/HCPCS: 71046

== ENCOUNTER → 2025-07-29 11:34 | Outpatient (BNV) | payer OTHER, SELFPAY | PROVIDERS: PCP Physician Assistant; Visit Provider Radiology Diagnostic Radiology | DX: R05.1 Acute cough (principal) | CPT/HCPCS: 71046 ==